=== PATIENT | female | born 1960 | race Hispanic/Latino ===

== ENCOUNTER 2016-11-26 04:18 | Emergency (ER) | payer SELFPAY ==
[2016-11-26 04:30] VITALS: BP 116/66
[2016-11-26 05:17] LABS: Bacteria,Urine 1+ /HPF (Negative); Bilirubin,Urine NEG (Negative); Blood,Urine SM (Negative); Ketones,Urine NEG (Negative); Leukocyte Esterase,Urine NEG (Negative); Mucus,Urine FEW /HPF; Nitrite,Urine POS (Negative); Protein,Urine <15 mg/dL mg/dL (Negative); Urobilinogen,Urine < 2.0 mg/dL (<2.0)
[2016-11-26 05:17] LABS: Basophils % (Auto) 0.5 % (0.0-1.8); Eosinophils % (Auto) 1.4 % (0.0-4.3); Hematocrit 46.1 % (30.3-42.9); Hemoglobin 15.9 gm/dl (10.1-14.3); Mean Corpuscular HGB Conc 34 % (30-34); Mean Corpuscular Hemoglobin 34 pg (28-32); Mean Corpuscular Volume 99 fl (79-97); Platelet Count 259 K/mm3 (140-440); Red Blood Count 4.64 M/mm3 (3.65-5.03); Red Cell Distribution Width 13.4 % (13.2-15.2)
[2016-11-26 05:23] LABS: Albumin 3.9 g/dL (3.9-5); BUN/Creatinine Ratio 18.18; Bilirubin,Total 0.3 mg/dL (0.1-1.2); Calcium 9.4 mg/dL (8.4-10.2); Chloride 100.1 mmol/L (98-107); Potassium 4.5 mmol/L (3.6-5.0)
--- NOTE | 2016-11-26 19:39 | ED Elopement Review ---
ED Pt Elopement review - Results review Lab results: Laboratory Tests 11/26/16 11/26/16 11/26/16 04:33 04:33 04:42 WBC 9.0 RBC 4.64 Hgb 15.9 H Hct 46.1 H MCV 99 H MCH 34 H MCHC 34 RDW 13.4 Plt Count 259 Lymph % (Auto) 28.8 Stevens % (Auto) 5.0 Eos % (Auto) 1.4 Baso % (Auto) 0.5 Lymph # 2.6 Stevens # 0.5 Eos # 0.1 Baso # 0.0 Seg Neutrophils % 64.3 Seg Neutrophils # 5.8 Sodium 140 Potassium 4.5 Chloride 100.1 Carbon Dioxide 26 Anion Gap 18 BUN 20 H Creatinine 1.1 Estimated GFR 52 BUN/Creatinine Ratio 18.18 Glucose 100 Calcium 9.4 Total Bilirubin 0.30 AST 16 ALT 10 Alkaline Phosphatase 65 Total Protein 8.0 Albumin 3.9 Albumin/Globulin Ratio 1.0 Urine Color Yellow Urine Turbidity Clear Urine pH 6.0 Ur Specific [place] 1.016 Urine Protein <15 mg/dl Urine Glucose (UA) Neg Urine Ketones Neg Urine Blood Sm Urine Nitrite Pos Urine Bilirubin Neg Urine Urobilinogen < 2.0 Ur Leukocyte Esterase Neg Urine WBC (Auto) 13.0 H Urine RBC (Auto) 1.0 U Epithel Cells (Auto) < 1.0 Urine Bacteria (Auto) 1+ Urine Mucus Few - Call Back decision Pt Call Back Decision: No action required
== END 2016-11-26 04:43 | disposition left against medical advice (07) ==
LOC: ED 04:18
DX: R10.30 Lower abdominal pain, unspecified (principal); Z53.21 Procedure and treatment not carried out due to patient leaving prior to being seen by health care provider
CPT/HCPCS: 36415; 80053; 81001; 85025

== ENCOUNTER 2017-09-23 05:41 | Emergency (ER) | payer OTHER ==
[2017-09-23 07:19] LABS: Basophils % (Auto) 0.4 % (0.0-1.8); Eosinophils # (Auto) 0.1 K/mm3 (0.0-0.4); Eosinophils % (Auto) 1.6 % (0.0-4.3); Hematocrit 52.2 % (30.3-42.9); Hemoglobin 18.1 gm/dl (10.1-14.3); Lymphocytes # (Auto) 2.1 K/mm3 (1.2-5.4); Lymphocytes % (Auto) 26.8 % (13.4-35.0); Mean Corpuscular HGB Conc 35 % (30-34); Mean Corpuscular Hemoglobin 35 pg (28-32); Mean Corpuscular Volume 102 fl (79-97); Monocytes # (Auto) 0.5 K/mm3 (0.0-0.8); Monocytes % (Auto) 6.7 % (0.0-7.3); Platelet Count 218 K/mm3 (140-440); Red Blood Count 5.14 M/mm3 (3.65-5.03); Red Cell Distribution Width 14.1 % (13.2-15.2)
[2017-09-23 07:29] LABS: BUN/Creatinine Ratio 19; Blood Urea Nitrogen 15 mg/dL (7-17); Calcium 9.5 mg/dL (8.4-10.2); Hemolysis Index 21
[2017-09-23 08:25] LABS: Bacteria,Urine 1+ /HPF (Negative); Bilirubin,Urine NEG (Negative); Blood,Urine MOD (Negative); Color,Urine Yellow (Yellow); Mucus,Urine FEW /HPF; Protein,Urine <15 mg/dL mg/dL (Negative)
[2017-09-23 08:37] LABS: Amphetamine Screen,Urine PRESUMPTIVE NEGATIVE; Methadone Screen,Urine PRESUMPTIVE NEGATIVE; Opiate Screen,Urine PRESUMPTIVE NEGATIVE
[2017-09-23 08:52] LABS: Benzodiazepines Screen,Urine PRESUMPTIVE POSITIVE; Cannabinoid Screen,Urine PRESUMPTIVE POSITIVE; Cocaine Screen,Urine PRESUMPTIVE POSITIVE
--- NOTE | 2017-09-23 12:32 | Emergency Department Report ---
HPI - General Chief Complaint: Psych Time Seen by Provider: 09/23/17 12:03 - HPI HPI: 57-year-old female presents to the emergency department by EMS after she cut both her wrists with last night/early this morning. Patient says that she has a feeling of hopelessness and wants to "end it all." She says that she has this history of a inguinal hernia for the past few years as well as some type of growth towards the left breast that she has concern for breast cancer but says that she has been unable to get any follow-up or evaluation. She says that she has no insurance, does not have much money and has no job and is feeling hopeless. She has a past medical history of previous CVA, hypertension , hyperlipidemia and has a history of PTSD and anxiety. She admits to taking a Xanax last night as well as smoking crack and drinking some alcohol. ED Past Medical Hx - Past Medical History Previous Medical History?: Yes Hx Hypertension: Yes Hx CVA: Yes Hx Congestive Heart Failure: No Hx Diabetes: No Hx Psychiatric Treatment: Yes (anxiety) Hx Asthma: No Hx COPD: No Additional medical history: high chol. DJD lower back - Surgical History Past Surgical History?: Yes Additional Surgical History: fusion Lumbar spine. tonsills - Social History Smoking Status: Current Every Day Smoker Substance Use Type: Alcohol, Cocaine, Marijuana - Medications Home Medications: Home Medications Medication Instructions Recorded Confirmed Last Taken Type Hydrocodone Bit/Acetaminophen 1 each PO Q8H PRN #10 tablet 06/10/13 05/03/15 Unknown Rx [Lortab 7.5-500 mg] Lisinopril [Zestril TAB] 20 mg PO QDAY 06/10/13 05/03/15 Unknown History traMADol [Ultram 50 MG tab] 50 mg PO Q4HR PRN #20 tablet 06/10/13 05/03/15 Unknown Rx Aspirin [Aspirin BABY CHEW TAB] 162 mg PO QDAY 05/03/15 05/03/15 Unknown History Nitrofurantoin [place]/M-Cryst 100 mg PO BID #14 capsule 09/23/17 Unknown Rx [Macrobid CAP] ED Review of Systems ROS: Stated complaint: LAC TO WRISTS Other details as noted in HPI Comment: All other systems reviewed and negative Constitutional: denies: chills, fever Eyes: denies: eye pain, eye discharge, vision change ENT: denies: ear pain, throat pain Respiratory: denies: cough, shortness of breath, wheezing Cardiovascular: denies: chest pain, palpitations Gastrointestinal: denies: abdominal pain, nausea, diarrhea Genitourinary: denies: urgency, dysuria, discharge Musculoskeletal: denies: back pain, joint swelling, arthralgia Skin: other (abrasions/laceration of the wrists). denies: rash Neurological: denies: headache, numbness Psychiatric: anxiety, depression, suicidal thoughts Physical Exam - Physical Exam Vital Signs: Vital Signs 09/23/17 06:47 Temperature 98.6 F Pulse Rate 64 Respiratory 18 Rate Blood Pressure 133/76 O2 Sat by Pulse 97 Oximetry Physical Exam: GENERAL: The patient is well-developed well-nourished. HENT: Normocephalic. Atraumatic. Patient has moist mucous membranes. EYES: Extraocular motions are intact. Pupils equal reactive to light bilaterally. NECK: Supple. Trachea is midline. CHEST/LUNGS: Clear to auscultation. There is no respiratory distress noted. BREAST: There is a soft tissue mass growing off of the left breast around the nipple. HEART/CARDIOVASCULAR: Regular. There is no tachycardia. There is no murmur. ABDOMEN: Abdomen is soft, nontender. Patient has normal bowel sounds. There is no abdominal distention. SKIN: Patient has multiple abrasions to the volar wrist and distal forearm. No current bleeding and they do not appear infected. NEURO: The patient is awake, alert, and oriented. The patient is cooperative. The patient has no focal neurologic deficits. The patient has normal speech. MUSCULOSKELETAL: There is no tenderness or deformity. There is no limitation range of motion. There is no evidence of acute injury. PSYCH: Patient is very tearful but otherwise appropriate. ED Course Vital Signs 09/23/17 06:47 Temperature 98.6 F Pulse Rate 64 Respiratory 18 Rate Blood Pressure 133/76 O2 Sat by Pulse 97 Oximetry ED Medical Decision Making - Lab Data Result diagrams: 09/23/17 06:59 09/23/17 06:59 - Radiology Data Radiology results: report reviewed, image reviewed interpreted by me: Chest x-ray does not show any acute process. There are no pleural effusions, obvious pneumonia and there is no pneumothorax. Abdominal x-ray shows nonspecific nonobstructive bowel gas. CT of the head does not show any acute intracranial process including no ischemia, shift, mass, bleeding or skull fracture. - Medical Decision Making Patient presents with suicidal ideations and possible attempt with multiple abrasions around the wrists that are self-inflicted. At first the patient complains of some chronic medical conditions that she has had trouble getting evaluated. With the psych chucking and sawing machine operator, Malgorzata, in the room with me, the patient showed her left breast which has a soft tissue mass growing off of the nipple. The patient says that this is a chronic issue for her and she has not yet had a mammogram or had it evaluated. She also complains of a right inguinal hernia. I did not feel any current palpable hernia and specifically there is nothing that appears incarcerated or strangulated. She has multiple abrasions to the bilateral wrists and forearms consistent with self-inflicted wounds. Nothing that appears to require any sutures or laceration repair. She was given a tetanus booster. However along with the self-inflicted wounds and her suicidal ideations, she has been made a 1013. Labs are mostly unremarkable except for a urinary tract infection. Also urine drug screen positive for benzodiazepine, cocaine and marijuana, all which the patient admits to using. Chest and abdominal x-rays were done that did not show any signs of any intrathoracic mass, or any acute abdominal or pelvic process. CT of head does not show any bleed, shift, mass or any acute process and was done secondary to the complaint of a headache. Vital signs stable throughout her ED course. The patient appears medically cleared for psychiatric placement. She will be given some referrals for outpatient primary care clinics to use when she is done with her psychiatric treatment. - Differential Diagnosis depression, substance abuse, bipolar disorder, schizophrenia Critical Care Time: No Critical care attestation.: If time is entered above; I have spent that time in minutes in the direct care of this critically ill patient, excluding procedure time. ED Disposition Clinical Impression: Suicidal ideations, Substance abuse Depression Qualifiers: Depression Type: unspecified Qualified Code(s): F32.9 - Major depressive disorder, single episode, unspecified Self-inflicted laceration of wrist Qualifiers: Encounter type: initial encounter Laterality: unspecified laterality Qualified Code(s): S61.519A - Laceration without foreign body of unspecified wrist, initial encounter UTI (urinary tract infection) Qualifiers: Urinary tract infection type: acute cystitis Hematuria presence: without hematuria Qualified Code(s): N30.00 - Acute cystitis without hematuria Disposition: TO HOME OR SELFCARE Is pt being admited?: No Condition: Stable Prescriptions: Nitrofurantoin [place]/M-Cryst [Macrobid CAP] 100 mg PO BID #14 capsule Referrals: [facility] [Outside] - [facility] [Outside] - [facility] [Outside] - [facility] Time of Disposition: 16:22
[2017-09-23] MEDS ORDERED: BOOSTRIX IM ONE ×2 (12:33→16:39)
--- NOTE | 2017-09-23 13:30 | XRay Report ---
ABDOMINAL SERIES: History: Breast mass, inguinal hernia. Erect chest film shows no acute or significant changes involving the heart or lung pierson. There is no evidence of free air beneath the diaphragms. The gas pattern within the abdomen is unremarkable. There is no evidence of bowel dilatation, significant air-fluid levels, or masses. Organ shadows are unremarkable. Surgical changes at the L5-S1 level are noted. IMPRESSION: Abdominal series within normal limits.
--- NOTE | 2017-09-23 15:41 | Cat Scan Report ---
CT HEAD WITHOUT CONTRAST: HISTORY: Headache. TECHNIQUE: Sequential 2.5mm CT images. COMPARISON: none. FINDINGS: Cerebral Parenchyma: Within normal limits. Cerebellum: Within normal limits. Brainstem: Within normal limits. Ventricles: Normal. Sella: Normal. Extra-axial spaces: Normal. Basal Cisterns: Normal. Intracranial Hemorrhage: None. Midline Shift: None. Calvarium: Normal. Sinuses: Normal. Mastoid Air Cells: Normal. Visualized Orbits: Normal. IMPRESSION: Cranial CT scan within normal limits.
[2017-09-23] MEDS: MACROBID PO SCH ×2 (16:23→22:12)
[2017-09-23] MEDS ORDERED: TYLENOL PO ONE (21:06)
[2017-09-24] MEDS: MACROBID PO SCH ×2 (11:45→22:26)
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
[2017-09-24 17:53] LABS: Alanine Aminotransferase 16 units/L (7-56); Albumin 4.1 g/dL (3.9-5)
[2017-09-24 18:01] LABS: Bilirubin,Direct < 0.2 mg/dL (0-0.2)
[2017-09-25] MEDS: PROzac PO SCH (10:39)
[2017-09-25] MEDS: MACROBID PO SCH ×2 (10:39→21:36)
--- NOTE | 2017-09-25 16:36 | Progress Note ---
Subjective - Reason for Consult Consult date: 09/25/17 Reason for consult: follow up - Chief Complaint Chief complaint: "This isn't helping." 57-year-old female presents to the emergency department by EMS after she cut both her wrists before arrival to the ER. Patient says that she has a feeling of hopelessness and wants to "end it all." She says that she has no insurance, does not have much money and has no job and is feeling hopeless. She is living in an extended stay motel. She has a past medical history of previous CVAs, hypertension, hyperlipidemia and has a history of PTSD, bipolar, and anxiety. She admits to taking Klonopin from her friend the night before coming to the ER as well as smoking crack and drinking some alcohol. She denies daily alcohol use. She was previously on ativan, prozac, thorazine, and trazodone. She has not been on meds in 2 years. She was hospitalized 3 years ago for similar symptoms. She denies psychotic symptoms. She reports depression, anxiety , and feeling "manic." She is unable to describe manic symptoms. She was tearful. She reports poor sleep initiation and maintenance. Her presentation is the same as yesterday. Mental Status Exam - Vital signs Last Vital Signs Temp 97.6 F 09/25/17 10:33 Pulse 72 09/25/17 10:33 Resp 18 09/25/17 10:33 BP 124/64 09/25/17 10:33 Pulse Ox 96 09/24/17 20:47 - Exam Narrative exam: Orientation: time, place, person Affect: depressed, anxious, other (tearful, labile) Mood: congruent with affect, sad Thought content: other (suicide attempt) Thought Process: Intact Perceptions: none Speech: normal rate and pattern Concentration: distractible Motor activity: tense Level of consciousness: alert Memory: Intact Sleep Symptoms: Difficulty Falling Asleep Appetite: decreased Interaction: cooperative Assessment and Plan Impression: suicide attempt via cutting wrists with a razor major depressive disorder, recurrent, severe PTSD alcohol use disorder. No current withdrawal symptoms cocaine use disorder cannabis use disorder r/o substance induced mood disorder r/o bipolar disorder Recommendation: Continue prozac 20mg daily for depression and PTSD. Add zyprexa 5mg hs as an adjunctive agent for mood. She was informed of the risk of metabolic effects/ eps. continue 1013 and transfer to inpatient psychiatric facility.
--- NOTE | 2017-09-26 09:14 | Progress Note ---
Subjective - Reason for Consult Consult date: 09/26/17 Reason for consult: Psychiatry Follow-up - Chief Complaint Chief complaint: "I have to stop using drugs" 57-year-old female presents to the emergency department by EMS after she cut both her wrists before arrival to the ER. Today the patient is cooperative during the assessment. She stated been denied social security benefits twice and she is tired of going through that process. She stated that her recreational drug use has increased the past year because she feels hopeless and helpless. She stated that she gets "high" with her which is a major problems. She stated being in rehab several times, but relapse. She stated that she cut her wrist to transfer the "mental anguish to pain." She stated that this is her time cutting on herself. She would not confirm or deny SI/HI's when asked. She denies AVH's. She stated that she felt "weird" after taking Zyprexa. She asked for that medication to be D/C'd. She stated that she slept more hours last night then the previous night. Mental Status Exam - Vital signs Last Vital Signs Temp 97.6 F 09/25/17 10:33 Pulse 72 09/25/17 10:33 Resp 18 09/25/17 10:33 BP 124/64 09/25/17 10:33 Pulse Ox 96 09/24/17 20:47 - Exam Narrative exam: MSE: Appearance: cooperative Behavior: regular eye contact Speech: regular rate and tone Mood: "anxious" Affect: congruent to mood Thought Process: circumstantial Thought Content: denies SI/HI's and AVH's Motor Activity: ambulatory Cognition: A/O x3 Insight: fair Judgment: fair Assessment and Plan Impression: MDD, recurrent/severe. Substance Use DO (cocaine). Cannabis Use DO. Suicide attempt via cutting wrists with a razor. PTSD. Alcohol Use DO - No current withdrawal symptoms. DDx: R/O Bipolar DO, R/O Substance Induced Mood DO, R/O Personality DO Recommendation/Plan: Continue 1013 with placement to inpatient psy services. Start Vistaril 25 mg PO Q6hrs PRN for acute anxiety. Continue Prozac 20mg daily for depression/PTSD. D/C Zyprexa, patient complaining fo feel "weird" when she takes the medication. She stated that she does not like that feeling. Discussed possible suicidality/medication induced christopher with patient reference Sergio.
[2017-09-26] MEDS: MACROBID PO SCH ×2 (12:24→21:52)
[2017-09-26] MEDS: PROzac PO SCH (12:24)
[2017-09-26] MEDS: VISTARIL PO PRN ×2 (16:25→20:17)
[2017-09-27] MEDS: VISTARIL PO PRN (07:56)
[2017-09-27] MEDS ORDERED: TYLENOL ONE (10:53)
--- NOTE | 2017-09-27 11:32 | Progress Note ---
Subjective - Reason for Consult Consult date: 09/27/17 Reason for consult: Psychiatry Follow-up - Chief Complaint Chief complaint: "I didn't sleep last night" 57-year-old female presents to the emergency department by EMS after she cut both her wrists before arrival to the ER. Today the patient is cooperative during the assessment. She stated that she didn't sleep last night. She stated that she took Trazodone in the past. She is adamant about wanting to rest at night. She denies SI/HI's and AVH's. She denies any side effects of her medication. Mental Status Exam - Vital signs Last Vital Signs Temp 98.8 F 09/27/17 08:44 Pulse 83 09/27/17 08:44 Resp 14 09/27/17 08:44 BP 121/64 09/27/17 08:44 Pulse Ox 96 09/27/17 08:44 - Exam Narrative exam: MSE: Appearance: cooperative Behavior: regular eye contact Speech: regular rate and tone Mood: "anxious" Affect: congruent to mood Thought Process: circumstantial Thought Content: denies SI/HI's and AVH's Motor Activity: ambulatory Cognition: A/O x3 Insight: fair Judgment: fair Assessment and Plan Impression: MDD, recurrent/severe. Substance Use DO (cocaine). Cannabis Use DO. Suicide attempt via cutting wrists with a razor. PTSD. Alcohol Use DO - No current withdrawal symptoms. DDx: R/O Bipolar DO, R/O Substance Induced Mood DO, R/O Personality DO Recommendation/Plan: Continue 1013 with placement to inpatient psy services. Continue Vistaril 25 mg PO Q6hrs PRN for acute anxiety and Prozac 20mg daily for depression/PTSD. Start Trazodone 50 mg PO HS for sleep consolidation. Discussed possible suicidality/medication induced christopher with patient reference Prozac and Trazodone.
[2017-09-27] MEDS: MACROBID PO SCH ×2 (11:47→22:11)
[2017-09-27] MEDS: PROzac PO SCH (11:47)
[2017-09-27] MEDS ORDERED: TYLENOL PO ONE (11:47)
[2017-09-27] MEDS ORDERED: DESYREL PO SCH (22:00)
[2017-09-28 01:47] VITALS: BP 140/78
[2017-09-28] MEDS: PROzac PO SCH (09:57)
[2017-09-28] MEDS: VISTARIL PO PRN (09:57)
[2017-09-28] MEDS: MACROBID PO SCH (09:57)
== END 2017-09-28 12:09 | disposition home or self-care (01) ==
LOC: EEVIPCON 05:41 → ED 05:41
DX: S61.511A Laceration without foreign body of right wrist, initial encounter (principal); S61.512A Laceration without foreign body of left wrist, initial encounter; F32.9 Major depressive disorder, single episode, unspecified; N30.00 Acute cystitis without hematuria; R51 Headache; I10 Essential (primary) hypertension; F41.9 Anxiety disorder, unspecified; F17.200 Nicotine dependence, unspecified, uncomplicated; F14.10 Cocaine abuse, uncomplicated; F12.10 Cannabis abuse, uncomplicated; F43.10 Post-traumatic stress disorder, unspecified; E78.00 Pure hypercholesterolemia, unspecified; Z91.018 Allergy to other foods; Z91.013 Allergy to seafood; Z88.2 Allergy status to sulfonamides; X78.8XXA Intentional self-harm by other sharp object, initial encounter; Y93.89 Activity, other specified; Y99.8 Other external cause status; Y92.89 Other specified places as the place of occurrence of the external cause
CPT/HCPCS: 36415; 70450; 74022; 80048; 80074; 80307; 81001; 85025; 90471; 90715; 99285; G0480; 80320; Q0177

== ENCOUNTER 2019-02-23 07:53 | Emergency (ER) | payer SELFPAY ==
[2019-02-23 08:04] VITALS: BP 178/98
[2019-02-23] MEDS ORDERED: NORCO 5/325 PO ONE (09:02)
[2019-02-23] MEDS ORDERED: CLEOCIN PO ONE (09:03)
--- NOTE | 2019-02-23 09:08 | Emergency Department Report ---
ED General Adult HPI - General Chief complaint: Urogenital-Female Stated complaint: L BREAST PAIN Time Seen by Provider: 02/23/19 08:51 Source: patient Mode of arrival: Ambulatory Limitations: No Limitations - History of Present Illness Initial comments: Patient is a 58-year-old female who is presenting with several months of pain to the left breast. Patient notes that over the last several months she's had a lesion develop on the left breast that 2 months ago erupted with purulent drainage. This area has continued to have bouts of inflammation which will come and go. Patient states pain is a throbbing pain is 8 out of 10 in severity. Patient was seen at another facility and the patient was told that she could not see the breast surgeon secondary to financial constraints. Patient denies any fevers chills. Patient states is been no nausea vomiting diarrhea. Severity scale (0 -10): 0 - Related Data Home Medications Medication Instructions Recorded Confirmed Last Taken Lisinopril [Zestril TAB] 20 mg PO QDAY 06/10/13 09/26/17 Unknown Aspirin [Aspirin BABY CHEW TAB] 162 mg PO QDAY 05/03/15 09/26/17 Unknown Previous Rx's Medication Instructions Recorded Last Taken Type Hydrocodone Bit/Acetaminophen 1 each PO Q8H PRN #10 tablet 06/10/13 Unknown Rx [Lortab 7.5-500 mg] traMADol [Ultram 50 MG tab] 50 mg PO Q4HR PRN #20 tablet 06/10/13 Unknown Rx Nitrofurantoin [place]/M-Cryst 100 mg PO BID #14 capsule 09/23/17 Unknown Rx [Macrobid CAP] Clindamycin [Clindamycin CAP] 300 mg PO Q8H #21 cap 02/23/19 Unknown Rx HYDROcodone/APAP 5-325 [[place] 1 each PO Q6HR PRN #14 tablet 02/23/19 Unknown Rx 5/325] Ibuprofen [Motrin 800 MG tab] 800 mg PO Q8HR PRN #10 tablet 02/23/19 Unknown Rx Allergies Allergy/AdvReac Type Severity Reaction Status Date / Time kiwi Allergy Unknown Verified 05/04/15 10:13 shrimp Allergy Unknown Verified 05/04/15 10:13 Sulfa (Sulfonamide Allergy Rash Verified 05/03/15 08:28 Antibiotics) ED Review of Systems ROS: Stated complaint: L BREAST PAIN Other details as noted in HPI Comment: All other systems reviewed and negative ED Past Medical Hx - Past Medical History Previous Medical History?: Yes Hx Hypertension: Yes Hx CVA: Yes Hx Congestive Heart Failure: No Hx Diabetes: No Hx Psychiatric Treatment: Yes (anxiety) Hx Asthma: No Hx COPD: No Additional medical history: high chol. DJD lower back - Surgical History Past Surgical History?: Yes Additional Surgical History: fusion Lumbar spine. tonsills - Social History Smoking Status: Current Every Day Smoker Substance Use Type: None - Medications Home Medications: Home Medications Medication Instructions Recorded Confirmed Last Taken Type Hydrocodone Bit/Acetaminophen 1 each PO Q8H PRN #10 tablet 06/10/13 09/26/17 Unknown Rx [Lortab 7.5-500 mg] Lisinopril [Zestril TAB] 20 mg PO QDAY 06/10/13 09/26/17 Unknown History traMADol [Ultram 50 MG tab] 50 mg PO Q4HR PRN #20 tablet 06/10/13 09/26/17 Unknown Rx Aspirin [Aspirin BABY CHEW TAB] 162 mg PO QDAY 05/03/15 09/26/17 Unknown History Nitrofurantoin [place]/M-Cryst 100 mg PO BID #14 capsule 09/23/17 Unknown Rx [Macrobid CAP] Clindamycin [Clindamycin CAP] 300 mg PO Q8H #21 cap 02/23/19 Unknown Rx HYDROcodone/APAP 5-325 [Roug[place] 1 each PO Q6HR PRN #14 tablet 02/23/19 Unknown Rx 5/325] Ibuprofen [Motrin 800 MG tab] 800 mg PO Q8HR PRN #10 tablet 02/23/19 Unknown Rx ED Physical Exam - General Limitations: No Limitations General appearance: alert, in no apparent distress - Head Head exam: Present: atraumatic, normocephalic - Eye Eye exam: Present: normal appearance - ENT ENT exam: Present: mucous membranes moist - Neck Neck exam: Present: normal inspection - Respiratory Respiratory exam: Present: normal lung sounds bilaterally. Absent: respiratory distress, wheezes, rales - Cardiovascular Cardiovascular Exam: Present: regular rate, normal rhythm. Absent: systolic murmur, diastolic murmur, rubs, gallop - GI/Abdominal GI/Abdominal exam: Present: soft, normal bowel sounds. Absent: distended, tenderness, guarding, rebound - Extremities Exam Extremities exam: Present: normal inspection - Back Exam Back exam: Present: normal inspection - Neurological Exam Neurological exam: Present: alert, oriented X3 - Psychiatric Psychiatric exam: Present: normal affect, normal mood - Skin Skin exam: Present: warm, dry, intact, normal color, other (the patient's left breast has a erosive lesion with some necrotic areas centrally. There is complete destruction of the nipple and areola. Breast is firm. There is mild surrounding erythema to this large tennis ball size lesion.). Absent: rash ED Course Vital Signs 02/23/19 08:03 Temperature 97.7 F Pulse Rate 82 Respiratory 18 Rate Blood Pressure 178/98 O2 Sat by Pulse 97 Oximetry ED Medical Decision Making - Medical Decision Making I discussed this case with Dr. Pamela Darby breast surgeon. Patient could possibly be covered under her [facility]. Patient to be contacted by her office today to schedule biopsy and further testing. Patient started on pain medication as well as antibiotics for possible secondary infection. Critical care attestation.: If time is entered above; I have spent that time in minutes in the direct care of this critically ill patient, excluding procedure time. ED Disposition Clinical Impression: Breast mass, left Disposition: DC-01 TO HOME OR SELFCARE Is pt being admited?: No Does the pt Need Aspirin: No Condition: Stable Instructions: Breast Mass (ED) Referrals: ERMA HOYT MD [Staff Physician] - 3-5 Days Time of Disposition: 09:09
[2019-02-23] MEDS ORDERED: ZESTRIL PO ONE (09:27)
== END 2019-02-23 09:45 | disposition home or self-care (01) ==
LOC: ED 07:53
DX: N63.20 Unspecified lump in the left breast, unspecified quadrant (principal); I10 Essential (primary) hypertension; F41.9 Anxiety disorder, unspecified; E78.00 Pure hypercholesterolemia, unspecified; J03.90 Acute tonsillitis, unspecified; F17.200 Nicotine dependence, unspecified, uncomplicated; Z86.73 Personal history of transient ischemic attack (TIA), and cerebral infarction without residual deficits; Z98.890 Other specified postprocedural states; Z79.899 Other long term (current) drug therapy; Z91.018 Allergy to other foods; Z88.2 Allergy status to sulfonamides
CPT/HCPCS: 99282

== ENCOUNTER 2019-03-20 08:19 | Emergency (ER) | payer SELFPAY ==
[2019-03-20] MEDS ORDERED: MORPHINE IV ONE ×2 (09:23→12:47)
[2019-03-20] MEDS ORDERED: ZOFRAN IV ONE ×2 (09:23→12:48)
--- NOTE | 2019-03-20 09:49 | Emergency Department Report ---
HPI - General Chief Complaint: Headache Time Seen by Provider: 03/20/19 09:12 - HPI HPI: 58-year-old female presents to the emergency department with a complaint of left-sided facial swelling and pain that started yesterday and worsened since waking up this morning. Patient does have a history of some broken teeth and some dental pain. However the patient also has a recent diagnosis of advanced left-sided breast cancer. She denies any fever, nausea, vomiting, shortness of breath. The patient recently started seeing Dr. Viveros for oncology. She is due to see Dr. Santiago, breast surgeon, today. She has not yet started any type of chemotherapy or radiation treatment. She has not taken anything for her symptoms prior to arrival today. ED Past Medical Hx - Past Medical History Previous Medical History?: Yes Hx Hypertension: Yes Hx CVA: Yes Hx Congestive Heart Failure: No Hx Diabetes: No Hx Psychiatric Treatment: Yes (anxiety) Hx Asthma: No Hx COPD: No Additional medical history: high chol. DJD lower back - Surgical History Past Surgical History?: Yes Additional Surgical History: fusion Lumbar spine. tonsills - Social History Smoking Status: Current Every Day Smoker Substance Use Type: None - Medications Home Medications: Home Medications Medication Instructions Recorded Confirmed Last Taken Type Clindamycin [Clindamycin CAP] 300 mg PO Q8HR #42 capsule 03/20/19 Unknown Rx HYDROcodone/APAP 5-325 [[place] 1 each PO Q6HR PRN #12 tablet 03/20/19 Unknown Rx 5/325] ED Review of Systems ROS: Stated complaint: (L) SIDE OF FACE SWOLLEN Other details as noted in HPI Comment: All other systems reviewed and negative Constitutional: denies: chills, fever Eyes: denies: eye pain, vision change ENT: dental pain. denies: ear pain, throat pain Respiratory: denies: cough, shortness of breath Cardiovascular: edema (facial swelling). denies: chest pain, palpitations Gastrointestinal: denies: abdominal pain, vomiting Genitourinary: denies: dysuria, discharge Musculoskeletal: denies: back pain, arthralgia Skin: denies: rash, lesions Neurological: denies: numbness, paresthesias Physical Exam - Physical Exam Vital Signs: Vital Signs 03/20/19 08:24 Temperature 98.6 F Pulse Rate 105 H Respiratory 20 Rate Blood Pressure 133/94 O2 Sat by Pulse 96 Oximetry Physical Exam: GENERAL: The patient is well-developed well-nourished. HENT: Normocephalic. Atraumatic. Patient has moist mucous membranes. Patient has multiple dental caries, missing teeth and fractured teeth but everything appears chronic. No palpable or visible dental abscess but there is some tenderness to palpation along the left upper gumline. No drooling or trismus. Left-sided facial tenderness to palpation. EYES: Extraocular motions are intact. Pupils equal reactive to light bilaterally. NECK: Supple. Trachea is midline. CHEST/LUNGS: Clear to auscultation. There is no respiratory distress noted. HEART/CARDIOVASCULAR: Regular. There is no tachycardia. There is no murmur. ABDOMEN: Abdomen is soft, nontender. Patient has normal bowel sounds. There is no abdominal distention. SKIN: There is left-sided facial swelling with some mild erythema. No fluctuance. NEURO: The patient is awake, alert, and oriented. The patient is cooperative. The patient has no focal neurologic deficits. Normal speech. MUSCULOSKELETAL: There is no tenderness or deformity. There is no evidence of acute injury. ED Course Vital Signs 03/20/19 08:24 Temperature 98.6 F Pulse Rate 105 H Respiratory 20 Rate Blood Pressure 133/94 O2 Sat by Pulse 96 Oximetry ED Medical Decision Making - Lab Data Result diagrams: 03/20/19 09:31 03/20/19 09:31 - Radiology Data Radiology results: report reviewed CT facial boncontrastes w con INDICATION: Left facial swelling and pain beginning this morning. Recent fracture/loss of tooth per patient. TECHNIQUE: Axial, coronal and sagittal CT imaging was performed through the face after injection of 100 mL Omnipaque [address] scans at this location are performed using CT dose reduction for ALARA by means of automated exposure control. COMPARISON: None available. FINDINGS: Bones and joints: No acute fracture or dislocation. Degenerative changes are noted along the cervical spine. Soft tissues: There is generalized mild to moderate edema along the left side of the face extending from the maxillary region to the level of the mandible. No organized drainable fluid collection/abscess is seen. No mass or lymphadenopathy is seen. The aerodigestive tract appears patent and normal in caliber. The parapharyngeal spaces are maintained. Sinuses: The right maxillary sinus is small, but clear. The remaining visualized sinuses appear unremarkable. The mastoid air cells are clear. Orbits: No significant abnormality. Additional findings: None. IMPRESSION: Mild to moderate left facial edema without visualization of an organized drainable fluid collection/abscess or acute osseous abnormality. CT chest w con INDICATION / CLINICAL INFORMATION: facial swelling with hx of metastaticbreast cancer. TECHNIQUE: Axial CT imaging of chest was obtained with IV contrast. Coronal and sagittal reformatted imaging obtained and reviewed. All CT scans at this location are performed using CT dose reduction for ALARA by means of automated exposure control. COMPARISON: None available. FINDINGS: CT chest with contrast does not demonstrate any mediastinal or hilar mass or adenopathy. Thoracic aorta demonstrates a small amount of calcific plaque but no evidence of aneurysmal dilatation. Heart size is normal. No pericardial effusion. The lungs are well-expanded. I do not see any evidence of pulmonary nodule or focal parenchymal disease. There is no pleural effusion. There is some degree of motion artifact on the exam. It is possible that a very tiny pulmonary nodule may not be visualized due to the presence of this motion artifact. Imaging obtained of the upper abdomen is grossly unremarkable. Visualized portion of the liver and both adrenal glands are unremarkable. No acute osseous abnormality noted. There is an obvious malignant mass in the left subareolar breast which has been recently biopsied. The mass measures approximately 3.9 cm in diameter. There is significant and prominent. The areolar skin involvement and nipple retraction. Additionally there are multiple abnormal left axillary lymph nodes present as well as which have been biopsied recently. IMPRESSION: 1. Large left breast mass with metastatic left axillary adenopathy. This is a known breast malignancy and has been biopsied recently. 2. No acute finding within the thorax. No acute pulmonary disease. Please note that there is patient motion artifact present which does limit the quality of this exam slightly. - Medical Decision Making This patient presents with a few days of some left-sided facial swelling and tenderness. She has a history of a recent diagnosis of some advanced and/or metastatic left-sided breast cancer. My concern upon her presentation was either a facial cellulitis with abscess, or superior vena cava syndrome. Her labs were mostly unremarkable. No significant leukocytosis. Vital signs were stable including being afebrile. Patient was given a few doses of pain medication and placed on some clindamycin. She did have some improvement of her symptoms. CT of the chest shows the large left breast mass with metastatic left adenopathy. Otherwise there is no acute finding within the thorax and she does not appear to have superior vena cava syndrome. CT of the face shows some soft tissue swelling but no drainable or visible fluid collection or abscess. The patient already is being followed for the breast cancer with Dr. Viveros, oncology, and Dr. Santiago, breast surgery and has appointment coming up. Her facial pain is improved with pain medication. She appears safe for discharge home at this time. She understands that she must return to the emergency department immediately with any worsening of her symptoms or with any acute distress. She'll be discharged home with antibiotics and pain medication. - Differential Diagnosis superior vena cava syndrome, facial celluliti, facial abscess, dental infec Critical Care Time: No Critical care attestation.: If time is entered above; I have spent that time in minutes in the direct care of this critically ill patient, excluding procedure time. ED Disposition Clinical Impression: Facial cellulitis, Dentalgia, Facial swelling Disposition: TO HOME OR SELFCARE Is pt being admited?: No Condition: Stable Instructions: Dental Caries (ED), Cellulitis (ED), Toothache (ED) Additional Instructions: Please follow-up with your oncologist and breast surgeon. Take the antibiotics as prescribed. Return to the emergency Department with any worsening of your symptoms are any acute distress. You have been prescribed a medication that is sedating and therefore should not be taken prior to driving, working, and responsible for children and in no way should be mixed with alcohol of any quantity. Prescriptions: Clindamycin [Clindamycin CAP] 300 mg PO Q8HR #42 capsule HYDROcodone/APAP 5-325 [[place] 5/325] 1 each PO Q6HR PRN #12 tablet PRN Reason: Pain Referrals: REGINE VIVEROS MD [Staff Physician] - 3-5 Days ERMA SANTIAGO MD [Staff Physician] - 3-5 Days Time of Disposition: 16:36
[2019-03-20 09:53] LABS: Basophils % (Auto) 0.3 % (0.0-1.8); Eosinophils # (Auto) 0.1 K/mm3 (0.0-0.4); Hematocrit 44.5 % (30.3-42.9); Hemoglobin 15.2 gm/dl (10.1-14.3); Lymphocytes # (Auto) 1.6 K/mm3 (1.2-5.4); Lymphocytes % (Auto) 12.4 % (13.4-35.0); Mean Corpuscular HGB Conc 34 % (30-34); Mean Corpuscular Volume 96 fl (79-97); Monocytes # (Auto) 0.9 K/mm3 (0.0-0.8); Monocytes % (Auto) 7.1 % (0.0-7.3); Platelet Count 271 K/mm3 (140-440); Red Blood Count 4.66 M/mm3 (3.65-5.03); Red Cell Distribution Width 13.3 % (13.2-15.2)
[2019-03-20 10:05] LABS: Alanine Aminotransferase 8 units/L (7-56); Albumin 4.3 g/dL (3.9-5); BUN/Creatinine Ratio 17; Blood Urea Nitrogen 15 mg/dL (7-17); Calcium 9.9 mg/dL (8.4-10.2); Hemolysis Index 1
[2019-03-20] MEDS ORDERED: BENADRYL IV ONE ×2 (10:08→12:53)
[2019-03-20] MEDS ORDERED: SOLU-Medrol IV ONE (12:53)
[2019-03-20] MEDS ORDERED: PERCOCET 5/325 PO ONE (14:03)
--- NOTE | 2019-03-20 14:41 | Cat Scan Report ---
CT chest w con INDICATION / CLINICAL INFORMATION: facial swelling with hx of metastaticbreast cancer. TECHNIQUE: Axial CT imaging of chest was obtained with IV contrast. Coronal and sagittal reformatted imaging obt ained and reviewed. All CT scans at this location are performed using CT dose reduction for ALARA by means of automated exposure control. COMPARISON: None available. FINDINGS: CT chest with contrast does not demonstrate any mediastinal or hilar mass or adenopathy. Thoracic aor ta demonstrates a small amount of calcific plaque but no evidence of aneurysmal dilatation. Heart siz e is normal. No pericardial effusion. The lungs are well-expanded. I do not see any evidence of pulmonary nodule or focal parenchymal disea se. There is no pleural effusion. There is some degree of motion artifact on the exam. It is possible that a very tiny pulmonary nodule may not be visualized due to the presence of this motion artifact. Imaging obtained of the upper abdomen is grossly unremarkable. Visualized portion of the liver and lynn th adrenal glands are unremarkable. No acute osseous abnormality noted. There is an obvious malignant mass in the left subareolar breast which has been recently biopsied. Th e mass measures approximately 3.9 cm in diameter. There is significant and prominent. The areolar ski n involvement and nipple retraction. Additionally there are multiple abnormal left axillary lymph nod es present as well as which have been biopsied recently. IMPRESSION: 1. Large left breast mass with metastatic left axillary adenopathy. This is a known breast malignancy and has been biopsied recently. 2. No acute finding within the thorax. No acute pulmonary disease. Please note that there is patient motion artifact present which does limit the quality of this exam slightly. Signer Name: Michelle Finn MD Signed: 03/20/2019 2:37 PM Workstation Name: [id number]
--- NOTE | 2019-03-20 14:43 | Cat Scan Report ---
CT facial boncontrastes w con INDICATION: Left facial swelling and pain beginning this morning. Recent fracture/loss of tooth per patient. TECHNIQUE: Axial, coronal and sagittal CT imaging was performed through the face after injection of 100 mL Omnip aque [address] scans at this location are performed using CT dose reduction for ALARA teddy chatterjee of automated exposure control. COMPARISON: None available. FINDINGS: Bones and joints: No acute fracture or dislocation. Degenerative changes are noted along the cervical spine. Soft tissues: There is generalized mild to moderate edema along the left side of the face extending f rom the maxillary region to the level of the mandible. No organized drainable fluid collection/absces s is seen. No mass or lymphadenopathy is seen. The aerodigestive tract appears patent and normal in c aliber. The parapharyngeal spaces are maintained. Sinuses: The right maxillary sinus is small, but clear. The remaining visualized sinuses appear unrem arkable. The mastoid air cells are clear. Orbits: No significant abnormality. Additional findings: None. IMPRESSION: Mild to moderate left facial edema without visualization of an organized drainable fluid collection/a bscess or acute osseous abnormality. Signer Name: Walter Manzanares MD Signed: 03/20/2019 2:39 PM Workstation Name: [id number]
[2019-03-20] MEDS ORDERED: CLEOCIN 900 MG/50 mL 900 MG/50 ML BAG IV ONE (14:56)
[2019-03-20 15:48] VITALS: BP 142/72
== END 2019-03-20 16:45 | disposition home or self-care (01) ==
LOC: ED 08:19
DX: L03.211 Cellulitis of face (principal); K08.89 Other specified disorders of teeth and supporting structures; I10 Essential (primary) hypertension; F41.9 Anxiety disorder, unspecified; E78.00 Pure hypercholesterolemia, unspecified; F17.200 Nicotine dependence, unspecified, uncomplicated; Z98.890 Other specified postprocedural states; Z86.73 Personal history of transient ischemic attack (TIA), and cerebral infarction without residual deficits; Z79.899 Other long term (current) drug therapy; Z91.013 Allergy to seafood; Z88.2 Allergy status to sulfonamides; Z91.018 Allergy to other foods
CPT/HCPCS: 36415; 70487; 71260; 80053; 85025; 96365; 96375; 96376; 99283; J1200; J2270; J2405; J2930; Q9967

== ENCOUNTER 2019-04-06 10:03 | Day surgery (SDC) | payer MEDICAID ==
[2019-04-06] MEDS ORDERED: ceFAZolin 2 GM in NACL 0.9% 100 ML IV ONE (10:58)
[2019-04-06] MEDS ORDERED: ZOFRAN IV PRN (11:04)
--- NOTE | 2019-04-06 11:05 | Anesthesia Day of Surgery ---
Anesthesia Day of Surgery - Day of Surgery Patient Examined: Yes Patient H&P Reviewed: Yes Patient is NPO: Yes
--- NOTE | 2019-04-06 11:09 | Anesthesia Consultation ---
Anesthesia Consult and Med Hx Date of service: 04/06/19 - Airway Anesthetic Teeth Evaluation: Chipped ROM Head & Neck: Adequate Mental/Hyoid Distance: Adequate Mallampati Class: Class II Intubation Access Assessment: Good - Pre-Operative Health Status ASA Pre-Surgery Classification: ASA2 Proposed Anesthetic Plan: General, MAC - Pulmonary Hx Smoking: Yes (SINCE AGE 19; 1/2PACK/DAY) Hx Asthma: No COPD: No Hx Pneumonia: No - Cardiovascular System Hx Hypertension: Yes (STATES RESOLVED; NO MEDS. ECHO [id number]) - Central Nervous System CVA: Yes (L SIDE WEAKNESS, DECREASE VISION) Hx Back Pain: Yes (Back surgery) Hx Psychiatric Problems: Yes - Gastrointestinal Hx Gastroesophageal Reflux Disease: Yes (Hiatal Hernia) - Endocrine Hx End Stage Renal Disease: No - Other Systems Hx Alcohol Use: No Hx Substance Use: Yes (COCAINE( 3 YEARS AGO); MARIJUANA) Hx Cancer: Yes (Breast)
[2019-04-06] MEDS ORDERED: LACTATED RINGERS 1,000 ML ONE (11:13)
[2019-04-06] MEDS ORDERED: TYLENOL PO NR (11:14)
[2019-04-06] MEDS ORDERED: MORPHINE IV NR (11:14)
[2019-04-06] MEDS ORDERED: ANCEF/STERILE WATER 2 GM/20 ML 2 GM/20 ML SYRINGE IV SCH (11:30)
[2019-04-06] MEDS: VERSED IV NR ×2 (11:42→12:14)
[2019-04-06] MEDS ORDERED: LACTATED RINGERS 1,000 ML IV SCH (12:00)
[2019-04-06] MEDS ORDERED: DILAUDID ONE (13:11)
[2019-04-06] MEDS ORDERED: XYLOCAINE MPF 2% ONE (13:11)
[2019-04-06] MEDS ORDERED: DIPRIVAN 10 MG/ML IV ONE ×2 (13:11→14:00)
[2019-04-06] MEDS ORDERED: MARCAINE 0.25% INFILTRATI ONE ×2 (13:13→13:44)
[2019-04-06] MEDS ORDERED: XYLOCAINE 1% 20 mL ONE (13:14)
[2019-04-06] MEDS ORDERED: NACL 0.9% 100 ML ONE (13:15)
[2019-04-06] MEDS ORDERED: VERSED ONE (13:29)
[2019-04-06] MEDS ORDERED: HEPARIN 10,000 UNITS/10 ML ONE (13:43)
[2019-04-06] MEDS ORDERED: XYLOCAINE 1% 20 mL INFILTRATI ONE (13:45)
[2019-04-06] MEDS ORDERED: HEPARIN 10,000 UNITS/10 ML IV ONE (13:45)
[2019-04-06] MEDS ORDERED: NACL 0.9% IR ONE (13:46)
--- NOTE | 2019-04-06 14:28 | Short Stay Summary ---
Short Stay Documentation Date of service: 04/06/19 - History Principal diagnosis: left breast cancer H&P: obtained from office - Allergies and Medications Current Medications: Allergies kiwi Allergy (Verified 04/05/19 11:03) Hives shellfish derived Allergy (Verified 04/05/19 11:03) Hives shrimp Allergy (Verified 04/05/19 11:03) Hives Sulfa (Sulfonamide Antibiotics) Allergy (Verified 04/05/19 11:03) Rash Home Medications Medication Instructions Recorded Confirmed Last Taken Type HYDROcodone/APAP 5-325 [[place] 1 each PO Q6HR PRN #12 tablet 03/20/19 04/05/19 Unknown Rx 5/325] Promethazine [Phenergan] 25 mg PO Q6HR PRN 04/05/19 04/05/19 Unknown History Active Medications Fentanyl (Sublimaze) 50 mcg IV Q5MIN PRN PRN Reason: Pain , Severe (7-10) Stop: 04/06/19 20:00 Cefazolin Sodium (Ancef/Sterile Water 2 Gm/20 Ml) 2 gm in 20 mls @ 80 mls/hr IV PREOP [place] Stop: 04/06/19 23:59 Lactated Ringer's (Lactated Ringers) 1,000 mls @ 125 mls/hr IV DIRECT [place] Last Admin: 04/06/19 11:30 Dose: 125 mls/hr Documented by: Midazolam HCl (Versed) 2 mg IV PREOP NR Stop: 04/06/19 23:59 Last Admin: 04/06/19 12:14 Dose: 2 mg Documented by: Ondansetron HCl (Zofran) 4 mg IV ONCE PRN PRN Reason: Nausea And Vomiting - Brief post op/procedure progress note Date of procedure: 04/06/19 Pre-op diagnosis: left breast cancer Post-op diagnosis: same Procedure: insertion right internal jugular port with mindray ultrasound guidance Anesthesia: MAC, local Findings: good placement of port without PTX on post op CXR Surgeon: ALYCIA HARTLEY Estimated blood loss: minimal Pathology: none Condition: stable - Hospital course Hospital course: Pt observed in PACU and discharged to home in stable condition when criteria met - Disposition Condition at discharge: Good Disposition: DC-01 TO HOME OR SELFCARE Short Stay Discharge Plan Activity: no restrictions Diet: regular Wound: open to air Additional Instructions: SEE PRINTED DISCHARGE INSTRUCTIONS Follow up with: PRIMARY CARE, [Primary Care Provider] - 7 Days ALYCIA HARTLEY DO [Staff Physician] - 10 Days
[2019-04-06] MEDS: SUBLIMAZE IV PRN ×4 (14:39→15:10)
[2019-04-06] MEDS ORDERED: NORCO 5/325 ONE (14:58)
--- NOTE | 2019-04-06 15:00 | Fluoroscopy Report ---
FLUOROSCOPY CENTRAL VENOUS DEVICE PLACEMENT HISTORY: Left breast cancer, Ysoifv-t-Mxiw insertion FINDINGS: 47 seconds of fluoroscopy time was provided by radiology during right IJ Ttnnfi-s-Ufqd inse rtion by the surgeon. 2 AP images of the chest are presented. The distal tip of the Kzogiv-c-Zaap ter minates in the superior right atrium. The lungs are clear. No pneumothorax. Normal heart and mediasti nal structures. IMPRESSION: Right IJ Etaitn-z-Omqy placement as described. No pneumothorax. Signer Name: Hardik Mccormick Jr, MD Signed: 04/06/2019 2:55 PM Workstation Name: [id number]
--- NOTE | 2019-04-06 15:03 | Operative Report ---
Operative Report Operative Report: Date of procedure: 04/06/19 Pre-op diagnosis: left breast cancer Post-op diagnosis: same Procedure: insertion right internal jugular port with mindray ultrasound guidance Anesthesia: MAC, local Findings: good placement of port without PTX on post op CXR Surgeon: ALYCIA HARTLEY Estimated blood loss: minimal Pathology: none Condition: stable - Hospital course Hospital course: Pt observed in PACU and discharged to home in stable condition when criteria met HPI and indication: Patient is a 58-year-old female who has recently been diagnosed with left-sided breast cancer. The patient is seen by Dr. Viveros and deemed a candidate for chemotherapy. All of the risks associated with the procedure were discussed with the patient including but not limited to pneumothorax, infection, bleeding, malpositioned port, injury to other structures. The patient understands and all questions were answered. Consent was signed and placed on chart. Procedure in detail: The patient was identified in the preoperative area, taken back to operating room, placed on operating table in supine position. After anesthesia was induced both arms were tucked and upper chest and neck were prepped and draped in usual sterile fashion. A timeout was performed. The was placed in Trendelenburg position. Local anesthetic was infiltrated into the skin at the intended puncture site. The right subclavian vein was seen using ultrasound, and one attempt was made to access it. Due to respiratory variation, I was unable to access the vein and therefore turned my attention to the right internal jugular vein. The right internal jugular vein was visualized on ultrasound and was small, collapsible, with a large amount of respiratory variation. The right internal jugular vein was accessed on the first stick and there was return of dark red nonpulsatile blood. The wire was threaded under fluoroscopy without resistance and positioning confirmed. The needle was then removed. Using a 15 blade, an incision was made in the LEFT upper chest and dissection carried down through the skin and subcutaneous tissue using Bovie electrocautery. Hemostasis was achieved along the way. A pocket for the port was then created bluntly and with electrocautery. The catheter was flushed and tunneled from the pocket to the wire. A breakaway catheter/dilator sheath then inserted over the wire under fluoroscopy, and the wire and dilator removed. The catheter was then inserted through the breakaway catheter which was then removed. The catheter sat flush under the skin. Using continuous fluoroscopy, the catheter was pulled back until the tip was visualized in the right atrium. The catheter was then cut to size and the port attached in the usual fashion. The port was then sutured into place to the pre-pectoral fascia using 2-0 Vicryl interrupted sutures. The wound was irrigated and hemostasis ensured. The port was tested with heparinized saline and there was return of blood and it flushed easily. The port was then instilled with 3000 units of heparin. The deep dermal layer was then closed with interrupted 3-0 Vicryl stitches. The skin incisions were closed with 4-0 Monocryl subcuticular stitches and skin glue. Intraoperative chest x-ray did show good positioning of the port, without evidence of pneumothorax At the end of the case, all sponge, instrument, sharp counts were correct 2. The patient was awoken from anesthesia and taken to PACU in stable condition
[2019-04-06] MEDS ORDERED: NORCO 5/325 PO PRN (15:23)
[2019-04-06 16:16] VITALS: BP 125/52
--- NOTE | 2019-04-06 16:34 | Post Anesthesia Evaluation ---
- Post Anesthesia Evaluation Patient Participated: Yes Airway Patent: Yes Stable Respiratory Function: Yes Nausea/Vomiting: No Temp > 96.8F: Yes Pain Manageable: Yes Adequeate Hydration: Yes Anesthesia Complications: No Block Receding Appropriately: Not Applicable Patient on Ventilator: No
== END 2019-04-06 16:10 | disposition home or self-care (01) ==
LOC: OR 10:03
PROVIDERS: ATTEND Surgery
DX: C50.912 Malignant neoplasm of unspecified site of left female breast (principal); I10 Essential (primary) hypertension; K21.9 Gastro-esophageal reflux disease without esophagitis; M19.90 Unspecified osteoarthritis, unspecified site; F32.9 Major depressive disorder, single episode, unspecified; F41.9 Anxiety disorder, unspecified; F17.210 Nicotine dependence, cigarettes, uncomplicated; F12.10 Cannabis abuse, uncomplicated; F14.10 Cocaine abuse, uncomplicated; Z80.0 Family history of malignant neoplasm of digestive organs; Z80.8 Family history of malignant neoplasm of other organs or systems; Z88.8 Allergy status to other drugs, medicaments and biological substances; Z91.013 Allergy to seafood; Z88.2 Allergy status to sulfonamides; Z72.89 Other problems related to lifestyle; Z79.899 Other long term (current) drug therapy; Z80.1 Family history of malignant neoplasm of trachea, bronchus and lung; Z80.42 Family history of malignant neoplasm of prostate; Z86.73 Personal history of transient ischemic attack (TIA), and cerebral infarction without residual deficits
CPT/HCPCS: 36561; 77001; C1769; C1788; J0690; J1170; J1644; J2250; J2270; J2704; J3010; J7120

== ENCOUNTER 2019-04-26 09:53 | Inpatient (IN) | payer MEDICAID ==
[2019-04-26 10:44] LABS: Hematocrit 32.4 % (30.3-42.9); Hemoglobin 10.8 gm/dl (10.1-14.3); Mean Corpuscular HGB Conc 33 % (30-34); Mean Corpuscular Volume 96 fl (79-97); Red Blood Count 3.37 M/mm3 (3.65-5.03); Red Cell Distribution Width 13.4 % (13.2-15.2)
[2019-04-26] MEDS ORDERED: ONDANSETRON 4 MG/2 ML INJ IV STA ×2 (10:49→14:01)
[2019-04-26] MEDS ORDERED: MORPHINE 4 MG/1 ML INJ IV STA (10:49)
[2019-04-26 10:54] LABS: INR 0.97 (0.87-1.13)
[2019-04-26 10:55] LABS: Partial Thromboplastin Time 23.1 Sec. (24.2-36.6)
[2019-04-26 11:06] LABS: Alanine Aminotransferase 6 units/L (7-56); Albumin 3.4 g/dL (3.9-5); BUN/Creatinine Ratio 25; Blood Urea Nitrogen 20 mg/dL (7-17); Calcium 8.4 mg/dL (8.4-10.2); Hemolysis Index 10
--- NOTE | 2019-04-26 11:09 | Emergency Department Report ---
ED Chest Pain HPI - General Chief Complaint: Chest Pain Stated Complaint: CHEST PAIN/LT ARM PAIN Time Seen by Provider: 04/26/19 10:45 Source: patient Mode of arrival: Ambulatory Limitations: No Limitations - History of Present Illness MD Complaint: chest pain Onset: during rest, during exertion Pain Location: left chest Pain Radiation: none Severity scale (0 -10): 8 Quality: tightness, aching Consistency: constant Improves With: nothing Worsens With: exertion re: dyspnea Treatments Prior to Arrival: none - Related Data Home Medications Medication Instructions Recorded Confirmed Last Taken Promethazine [Phenergan] 25 mg PO Q6HR PRN 04/05/19 04/26/19 Unknown Omeprazole 40 mg PO DAILY 04/26/19 04/26/19 Unknown Allergies Allergy/AdvReac Type Severity Reaction Status Date / Time kiwi Allergy Hives Verified 04/26/19 10:02 shellfish derived Allergy Hives Verified 04/26/19 10:02 shrimp Allergy Hives Verified 04/26/19 10:02 Sulfa (Sulfonamide Allergy Rash Verified 04/26/19 10:02 Antibiotics) Heart Score - HEART Score History: Moderately suspicious EKG: Normal Age: 45-65 Risk factors: 1-2 risk factors Troponin: < normal limit HEART Score: 3 ED Review of Systems ROS: Stated complaint: CHEST PAIN/LT ARM PAIN Other details as noted in HPI Comment: All other systems reviewed and negative ED Past Medical Hx - Past Medical History Hx Hypertension: Yes (STATES RESOLVED; NO MEDS. ECHO [id number]) Hx CVA: Yes Hx Diabetes: No Hx GERD: Yes Hx Arthritis: Yes Hx Headaches / Migraines: Yes Hx Psychiatric Treatment: Yes (anxiety) Hx Asthma: No Hx COPD: No Hx HIV: No Additional medical history: high chol. DJD lower back - Surgical History Additional Surgical History: fusion Lumbar spine. tonsills - Social History Smoking Status: Current Every Day Smoker Substance Use Type: None - Medications Home Medications: Home Medications Medication Instructions Recorded Confirmed Last Taken Type Promethazine [Phenergan] 25 mg PO Q6HR PRN 04/05/19 04/26/19 Unknown History Omeprazole 40 mg PO DAILY 04/26/19 04/26/19 Unknown History ED Physical Exam - General Limitations: No Limitations General appearance: alert, in no apparent distress - Head Head exam: Present: atraumatic, normocephalic - Eye Eye exam: Present: normal appearance - ENT ENT exam: Present: mucous membranes moist, TM's normal bilaterally - Neck Neck exam: Present: normal inspection, full ROM - Respiratory Respiratory exam: Present: normal lung sounds bilaterally, other (a portable to the right upper chest site has mild erythema. No crepitus noted. No discharge. There isno subcutaneous emphysema noted.). Absent: respiratory distress - Cardiovascular Cardiovascular Exam: Present: regular rate, normal rhythm. Absent: systolic murmur, diastolic murmur, rubs, gallop - GI/Abdominal GI/Abdominal exam: Present: soft, normal bowel sounds. Absent: tenderness, guarding, organomegaly, mass, bruit - Extremities Exam Extremities exam: Present: normal inspection, normal capillary refill - Back Exam Back exam: Present: normal inspection - Neurological Exam Neurological exam: Present: alert, oriented X3, CN II-XII intact - Psychiatric Psychiatric exam: Present: normal affect, normal mood. Absent: anxious, flat affect, manic, homicidal ideation, suicidal ideation - Skin Skin exam: Present: warm, dry, intact, normal color. Absent: rash, cyanosis, di aphoretic, erythema, petechiae, pallor, abrasion, ecchymosis ED Course Vital Signs 04/26/19 04/26/19 04/26/19 11:00 11:10 11:56 Temperature 98.3 F Pulse Rate 84 68 147 H Respiratory 17 18 Rate Blood Pressure Blood Pressure 107/65 [Right] O2 Sat by Pulse 97 Oximetry 04/26/19 04/26/19 04/26/19 12:00 12:15 12:30 Temperature Pulse Rate 64 63 61 Respiratory 24 22 26 H Rate Blood Pressure 106/62 112/73 Blood Pressure [Right] O2 Sat by Pulse 97 92 97 Oximetry 04/26/19 04/26/19 04/26/19 12:45 13:00 13:49 Temperature Pulse Rate 61 63 74 Respiratory 16 22 18 Rate Blood Pressure 113/65 113/65 Blood Pressure 112/63 [Right] O2 Sat by Pulse 98 99 100 Oximetry - Reevaluation(s) Reevaluation #1: 04/26/19 13:57 Case was discussed with hospitalist, Dr. Diaz. He plans to come and evaluate this Guzman for further admission. He was aware of the history and findings and need for admission. MAURICE score - Maurice Score Age > 65: (0) No Aspirin use within the Past 7 Days: (0) No 2 or more Angina events in past 24 hrs: (0) No Known CAD with more than 50% Stenosis: (0) No Elevated Cardiac Markers: (0) No ST Deviation Greater than 0.5mm: (0) No ED Medical Decision Making - Lab Data Result diagrams: 04/26/19 10:10 04/26/19 10:10 Critical care attestation.: If time is entered above; I have spent that time in minutes in the direct care of this critically ill patient, excluding procedure time. ED Disposition Clinical Impression: Chest pain Disposition: DC-09 OP ADMIT IP TO THIS HOSP Is pt being admited?: Yes Does the pt Need Aspirin: No Condition: Stable Instructions: Chest Pain (ED) Referrals: PRIMARY CARE, [Primary Care Provider] - 3-5 Days
--- NOTE | 2019-04-26 11:13 | XRay Report ---
CHEST 2 VIEWS INDICATION: Chest Pain. COMPARISON: 04/06/2019 FINDINGS: Support devices: Hayull-n-Xlul catheters tip in superior vena cava Heart: Within normal limits. Lungs: Faint prominence of the interstitium is noted. No acute air space disease Pleura: No significant pleural effusion. No pneumothorax. Additional findings: None. IMPRESSION: 1. No significant change in the faint increased interstitial process Signer Name: Felipe Rodriguez MD Signed: 04/26/2019 11:09 AM Workstation Name: [id number]
[2019-04-26 12:10] LABS: Bilirubin,Urine NEG (Negative); Blood,Urine NEG (Negative); Color,Urine Yellow (Yellow); Protein,Urine <15 mg/dL mg/dL (Negative); RBC,Urine < 1.0 /HPF (0.0-6.0); Urobilinogen,Urine < 2.0 mg/dL (<2.0)
[2019-04-26 12:15] LABS: Amphetamine Screen,Urine PRESUMPTIVE NEGATIVE; Benzodiazepines Screen,Urine PRESUMPTIVE NEGATIVE; Cannabinoid Screen,Urine PRESUMPTIVE NEGATIVE; Cocaine Screen,Urine PRESUMPTIVE NEGATIVE; Methadone Screen,Urine PRESUMPTIVE NEGATIVE
[2019-04-26 12:39] LABS: Band Neutrophils # (Manual) 13.4 K/mm3; Basophils % (Manual) 0 % (0.0-1.8); Eosinophils % (Manual) 0 % (0.0-4.3); Total Cells Counted 100
[2019-04-26 12:42] LABS: Large Platelets Few; Platelet Estimate Consistent w Auto; Stomatocytes Rare
[2019-04-26 12:45] LABS: Opiate Screen,Urine PRESUMPTIVE POSITIVE
[2019-04-26 12:50] LABS: Platelet Count 312 K/mm3 (140-440)
--- NOTE | 2019-04-26 12:54 | Cat Scan Report ---
CTA CHEST WITH IV CONTRAST INDICATION / CLINICAL INFORMATION: chest pain and sob. TECHNIQUE: Axial CT images were obtained through the chest after injection of IV contrast. 3 plane MIP and/or 3D reconstructions were produced. All CT scans at this location are performed using CT dose reduction f or ALARA by means of automated exposure control. COMPARISON: CT of the chest dated 03/20/2019 is compared FINDINGS: PULMONARY ARTERIES: No pulmonary emboli. THORACIC AORTA: No significant abnormality. HEART: No significant abnormality. CORONARY ARTERIES: No significant calcification. PLEURA: No pleural effusion. No pneumothorax. LYMPH NODES: No significant adenopathy. LUNGS: Faint prominence of the interstitium is present unchanged from previous exam ADDITIONAL FINDINGS: None. UPPER ABDOMEN: Multiple small lymph nodes are present involving the angie hepatis region and upper me sentery as well as retroperitoneum SKELETAL STRUCTURES: No significant osseous abnormality. IMPRESSION: 1. No CT evidence for pulmonary embolism. 2. Prominent interstitium 3. Multiple small lymph nodes in the upper mesentery, upper retroperitoneum and angie hepatis. Signer Name: Felipe Rodriguez MD Signed: 04/26/2019 12:49 PM Workstation Name: [id number]
[2019-04-26] MEDS ORDERED: diphenhydrAMINE 50 MG/ML VIAL IV STA (14:01)
[2019-04-26] MEDS ORDERED: HYDROmorphone 1 MG/1 ML INJ IV STA (14:01)
[2019-04-26] MEDS ORDERED: METOCLOPRAMIDE 10 MG/2 ML INJ IV STA (14:01)
[2019-04-26] MEDS ORDERED: ASPIRIN 325 MG TAB PO ONE (14:02)
--- NOTE | 2019-04-26 14:16 | History and Physical Report ---
History of Present Illness Chief complaint: It hurts around my port site History of present illness: 58 YO Female with Breast Cancer currently undergoing Chemotherapy, GERD, OA, Migraine Headache, HLD, Nicotine Dependence, DJD, Chronic Back Pain, Anxiety presents to ED for evaluation. Pt states that she has pain in her right chest over her port site. Pt also reports tenderness and redness to the skin around the port site. Pt states that she also hurts all over her body. Pt notified her Oncologist, who instructed patient to seek further care at [facility]. Pt transported to [facility] via private vehicle. Pt seen and evaluated in ED and found to have SIRS, Cellulitis to Left Chest, Acidosis, as well as elevated WBC count with suspicion of Leukemia. Pt initiated on IV antibiotic therapy and admitted to medical floor. Pt acknowledges shaking chills. Pt denies fever, shortness of breath, BRBPR, Productive cough, trauma, BRBPR, or recent ill contacts. No prior admission for review. All listed medication reconciled at time of admission. Past History Past Medical History: arthritis, cancer, GERD, hyperlipidemia, other (Chronic Pain) Past Surgical History: tonsillectomy, Other (Lumbar fusion,) Social history: single, smoking Family history: hypertension Medications and Allergies Allergies Allergy/AdvReac Type Severity Reaction Status Date / Time kiwi Allergy Hives Verified 04/26/19 10:02 shellfish derived Allergy Hives Verified 04/26/19 10:02 shrimp Allergy Hives Verified 04/26/19 10:02 Sulfa (Sulfonamide Allergy Rash Verified 04/26/19 10:02 Antibiotics) Home Medications Medication Instructions Recorded Confirmed Last Taken Type Promethazine [Phenergan] 25 mg PO Q6HR PRN 04/05/19 04/26/19 Unknown History Omeprazole 40 mg PO DAILY 04/26/19 04/26/19 Unknown History Review of Systems Constitutional: chills, no weight loss, no weight gain, no fever, no fatigue Ears, nose, mouth and throat: no ear pain, no ear discharge, no tinnitis, no decreased hearing, no nose pain, no nasal congestion, no nasal discharge Breasts: no swelling, no mass Cardiovascular: no orthopnea, no palpitations, no rapid/irregular heart beat, no edema, no syncope, no lightheadedness, no shortness of breath, no dyspnea on exertion, no paroxysmal nocturnal dyspnea, no phlebitis, no leg edema, no dec reased exercise tolerance Respiratory: no cough, no cough with sputum, no excessive sputum, no hemoptysis Gastrointestinal: no abdominal pain, no nausea, no vomiting, no diarrhea, no constipation Genitourinary Female: no pelvic pain, no flank pain, no menorrhagia, no dysuria, no urinary frequency, no urgency, no post void dribbling, no incomplete emptying Rectal: no pain, no incontinence, no bleeding Musculoskeletal: no neck stiffness, no neck pain, no shooting arm pain, no low back pain, no leg numbness/tingling Integumentary: other (Redness over port site to right chest ), no rash Neurological: no head injury, no transient paralysis, no weakness, no parathesias, no numbness, no tingling, no seizures Psychiatric: anxiety, no memory loss, no sleep disturbances, no insomnia, no hypersomnia, no change in appetite, no change in libido, no suicidal ideation Endocrine: no cold intolerance, no heat intolerance, no polyphagia, no polydipsia, no polyuria, no nocturia, no excessive sweating, no weight change Hematologic/Lymphatic: no easy bleeding, no lymphedema Allergic/Immunologic: no persistent infections, no anaphylaxis Exam - Constitutional Vitals: Temp Pulse Resp BP Pulse Ox 98.3 F 74 18 112/63 100 04/26/19 11:10 04/26/19 13:49 04/26/19 13:49 04/26/19 13:49 04/26/19 13:49 General appearance: Present: mild distress - EENT Eyes: Present: PERRL ENT: hearing intact, clear oral mucosa - Neck Neck: Present: supple, normal ROM - Respiratory Respiratory effort: normal Respiratory: bilateral: CTA - Cardiovascular Heart Sounds: Present: S1 & S2. Absent: rub, click - Extremities Extremities: pulses symmetrical, No edema Extremity abnormal: erythema, tenderness, other (Right chest wall around port site: Redness/tenderness) Peripheral Pulses: within normal limits - Abdominal General gastrointestinal: Present: soft, non-tender, non-distended, normal bowel sounds Female genitourinary: Present: normal - Integumentary Integumentary: Present: clear, warm, dry - Musculoskeletal Musculoskeletal: gait normal, strength equal bilaterally - Psychiatric Psychiatric: appropriate mood/affect, intact judgment & insight - Neurologic Neurologic: CNII-XII intact, moves all extremities Results - Labs CBC & Chem 7: 04/26/19 10:10 04/26/19 10:10 Labs: Abnormal lab results 04/26/19 04/26/19 04/26/19 Range/Units 10:10 10:10 10:10 WBC 53.6 H* (4.5-11.0) K/mm3 RBC 3.37 L (3.65-5.03) M/mm3 Seg Neuts % (Manual) 75.0 H (40.0-70.0) % Lymphocytes % (Manual) 0 L (13.4-35.0) % Seg Neutrophils # Man 40.2 H (1.8-7.7) K/mm3 Lymphocytes # (Manual) 0.0 L (1.2-5.4) K/mm3 APTT 23.1 L (24.2-36.6) Sec. Sodium 136 L (137-145) mmol/L Carbon Dioxide 18 L (22-30) mmol/L BUN 20 H (7-17) mg/dL Glucose 117 H (65-100) mg/dL ALT 6 L (7-56) units/L Albumin 3.4 L (3.9-5) g/dL Assessment and Plan - Patient Problems (1) SIRS (systemic inflammatory response syndrome) Current Visit: Yes Status: Acute Plan to address problem: CBC, CMP, IV antibiotic therapy, blood cultures, urinalysis, chest x ray. (2) Acidosis Current Visit: Yes Status: Acute Plan to address problem: IVF resuscitation therapy, repeat bmp (3) Acute leukemia Current Visit: Yes Status: Suspected Plan to address problem: Oncology consulted. continue supportive care. (4) Cellulitis Current Visit: Yes Status: Acute Qualifiers: Site of cellulitis of trunk: chest wall Plan to address problem: IV antibiotic therapy, cbc, supportive care. blood culture from port site (5) Port-A-Cath in place Current Visit: Yes Status: Acute Plan to address problem: supportive care, blood culture from port site. (6) Breast cancer Current Visit: Yes Status: Acute Qualifiers: Laterality: left Plan to address problem: Supportive care, Pt currently undergoing chemo treatment regimen. (7) Chronic pain disorder Current Visit: Yes Status: Acute Plan to address problem: supportive care, Methadone BID. (8) DVT prophylaxis Current Visit: Yes Status: Acute Plan to address problem: SCD to BLE while in bed, Prophylactic lovenox
[2019-04-26 14:37] LABS: Monocytes % (Manual) 0.5 % (0.0-7.3)
[2019-04-26] MEDS ORDERED: ALBUTEROL 2.5 MG/3 ML NEBU IH PRN (14:37)
[2019-04-26 14:39] LABS: Toxic Granulation 1+
[2019-04-26] MEDS ORDERED: PROMETHAZINE 25 MG TAB PO PRN (14:39)
[2019-04-26] MEDS ORDERED: VANCOMYCIN/NS 1 GM/250 ML 1 GM/250 ML BAG IV ONE (14:45)
[2019-04-26] MEDS ORDERED: VANCOMYCIN PHARMACY TO DOSE IV SCH (15:00)
[2019-04-26] MEDS ORDERED: VANCOMYCIN/NS 1 GM/250 ML 1 GM/250 ML BAG IV SCH (16:00)
[2019-04-26] MEDS ORDERED: HYDROmorphone 2 MG/1 ML INJ IV ONE (16:05)
[2019-04-26] MEDS ORDERED: HYDROmorphone 1 MG/1 ML INJ ONE (16:09)
[2019-04-26] MEDS ORDERED: SODIUM CHLORIDE 0.9% 100 ML IVPB IV SCH (19:45)
[2019-04-26] MEDS ORDERED: SODIUM CHLORIDE 0.9% 500 ML 500 ML ONE (20:00)
[2019-04-26] MEDS ORDERED: SODIUM CHLORIDE 0.9% 500 ML 500 ML IV ONE ×3 (21:00→22:37)
[2019-04-26] MEDS: ONDANSETRON 4 MG/2 ML INJ IV PRN (21:08)
[2019-04-26] MEDS: ACETAMINOPHEN 325 MG TAB PO PRN (21:08)
[2019-04-26] MEDS: METHADONE 5 MG TAB PO PRN (22:41)
[2019-04-27] MEDS: METHADONE 5 MG TAB PO PRN (06:43)
[2019-04-27] MEDS: ONDANSETRON 4 MG/2 ML INJ IV PRN ×3 (06:43→23:16)
--- NOTE | 2019-04-27 07:44 | Event Note ---
Date: 04/27/19 [id number]
[2019-04-27 09:45] LABS: Hematocrit 27.7 % (30.3-42.9); Hemoglobin 9.5 gm/dl (10.1-14.3); Mean Corpuscular HGB Conc 35 % (30-34); Mean Corpuscular Volume 95 fl (79-97); Platelet Count 232 K/mm3 (140-440); Red Blood Count 2.92 M/mm3 (3.65-5.03); Red Cell Distribution Width 13.2 % (13.2-15.2)
[2019-04-27] MEDS ORDERED: NON-FORMULARY EACH (Omeprazole [Omeprazole] 40 MG) PO SCH (10:00)
[2019-04-27] MEDS ORDERED: ENOXAPARIN 30 MG/0.3 ML INJ SUB-Q SCH (10:00)
[2019-04-27 10:01] LABS: BUN/Creatinine Ratio 21; Blood Urea Nitrogen 15 mg/dL (7-17); Calcium 8.1 mg/dL (8.4-10.2); Hemolysis Index 1
[2019-04-27 10:24] LABS: Band Neutrophils # (Manual) 0.7 K/mm3; Basophils % (Manual) 0 % (0.0-1.8); Eosinophils % (Manual) 0 % (0.0-4.3); Monocytes % (Manual) 0 % (0.0-7.3); Total Cells Counted 100
[2019-04-27 10:31] LABS: Stomatocytes Few
[2019-04-27 10:34] LABS: Dohle Bodies 1+; Platelet Estimate Consistent w Auto
[2019-04-27] MEDS: VANCOMYCIN/NS 1 GM/250 ML 1 GM/250 ML BAG IV SCH ×2 (10:35→21:12)
[2019-04-27] MEDS: PANTOPRAZOLE 40 MG TAB PO SCH (10:46)
[2019-04-27] MEDS: HYDROmorphone 1 MG/1 ML INJ IV PRN ×3 (10:46→21:12)
[2019-04-27] MEDS: ENOXAPARIN 40 MG/0.4 ML INJ SUB-Q SCH (10:46)
--- NOTE | 2019-04-27 12:55 | Consultation ---
History of Present Illness - Reason for Consult Consult date: 04/27/19 - History of Present Illness HPI: 58yo female with hx significant for newly dx of left breast cancer approximately 2 months ago which the patient had right IJ port placed for chemotherapy. The patient has had the port accessed 3 times chemotx and IVF. She has noticed intermittent neck pain and swelling since the insertion of the port. She has noticed intermittent fevers and chills over the past week and was instructed to present to ED. In addition, the patient has noticed left breast discharge over the past week that has since stopped. PE: NAD, A&Ox3 non-labored respirations RRR right chest port site with no edema or erythema noted bilateral neck supple with mild TTP no obvious neck/facial swelling noted both arms and legs warm and well perfused, no edema noted labs reviewed Chest CTA reviewed Plan: Patient with advanced breast cancer with associated lesion visible to the left breast port does not seem to be obviously infected, cultures pending ultrasound pending to evaluate for DVT no immediate surgical intervention warranted at this time will continue to follow Past History Past Medical History: arthritis, cancer, GERD, hyperlipidemia, other (Chronic Pain) Past Surgical History: tonsillectomy, Other (Lumbar fusion,) Social history: single, smoking Family history: hypertension Medications and Allergies Allergies Allergy/AdvReac Type Severity Reaction Status Date / Time kiwi Allergy Hives Verified 04/26/19 10:02 shellfish derived Allergy Hives Verified 04/26/19 10:02 shrimp Allergy Hives Verified 04/26/19 10:02 Sulfa (Sulfonamide Allergy Rash Verified 04/26/19 10:02 Antibiotics) Home Medications Medication Instructions Recorded Confirmed Last Taken Type Promethazine [Phenergan] 25 mg PO Q6HR PRN 04/05/19 04/26/19 Unknown History Omeprazole 40 mg PO DAILY 04/26/19 04/26/19 Unknown History Active Meds: Active Medications Acetaminophen (Tylenol) 650 mg PO Q4H PRN PRN Reason: Pain MILD(1-3)/Fever >100.5/BARONE Last Admin: 04/26/19 21:08 Dose: 650 mg Documented by: Acetaminophen/Hydrocodone Bitart ([place] 10/325) 1 each PO Q6H PRN PRN Reason: Pain, Moderate (4-6) Albuterol (Proventil) 2.5 mg IH Q4HRT PRN PRN Reason: Shortness Of Breath Enoxaparin Sodium (Lovenox) 40 mg SUB-Q QDAY@1000 [place] Last Admin: 04/27/19 10:46 Dose: 40 mg Documented by: Hydromorphone HCl (Dilaudid) 1 mg IV Q4H PRN PRN Reason: Pain , Severe (7-10) Last Admin: 04/27/19 10:46 Dose: 1 mg Documented by: Vancomycin HCl (Vancomycin/Ns 1 Gm/250 Ml) 1 gm in 250 mls @ 125 mls/hr IV Q12HR [place]; Protocol Last Admin: 04/27/19 10:35 Dose: 125 mls/hr Documented by: Ondansetron HCl (Zofran) 4 mg IV Q8H PRN PRN Reason: Nausea And Vomiting Last Admin: 04/27/19 06:43 Dose: 4 mg Documented by: Pantoprazole Sodium (Protonix) 40 mg PO DAILY [facility] [place] Last Admin: 04/27/19 10:46 Dose: 40 mg Documented by: Promethazine HCl (Phenergan) 25 mg PO Q6HR PRN PRN Reason: Nausea Sodium Chloride (Sodium Chloride Flush Syringe 10 Ml) 10 ml IV BID [facility] [place] Last Admin: 04/27/19 10:36 Dose: 10 ml Documented by: Sodium Chloride (Sodium Chloride Flush Syringe 10 Ml) 10 ml IV PRN PRN PRN Reason: LINE FLUSH Last Admin: 04/26/19 21:08 Dose: 10 ml Documented by: Sodium Chloride (Sodium Chloride Flush Syringe 10 Ml) 10 ml IV PRN PRN PRN Reason: LINE FLUSH Last Admin: 04/27/19 06:43 Dose: 10 ml Documented by: Sodium Chloride (Nacl 0.9%) 500 ml IV DIRECT [facility] [place] Exam - Constitutional Vitals: Temp Pulse Resp BP Pulse Ox 99.4 F 62 16 118/47 97 04/27/19 05:16 04/27/19 05:16 04/27/19 05:16 04/27/19 05:16 04/27/19 10:00 Results - Labs CBC & Chem 7: 04/27/19 08:22 04/27/19 08:22 Labs: Abnormal lab results 04/26/19 04/27/19 04/27/19 Range/Units 10:10 08:22 08:22 WBC 53.6 H* 22.4 H (4.5-11.0) K/mm3 RBC 3.37 L 2.92 L (3.65-5.03) M/mm3 Hgb 9.5 L (10.1-14.3) gm/dl Hct 27.7 L (30.3-42.9) % MCH 33 H (28-32) pg MCHC 35 H (30-34) % Seg Neuts % (Manual) 96.0 H 93.0 H (40.0-70.0) % Lymphocytes % (Manual) 1.5 L 4.0 L (13.4-35.0) % Seg Neutrophils # Man 40.2 H 20.8 H (1.8-7.7) K/mm3 Lymphocytes # (Manual) 0.0 L 0.9 L (1.2-5.4) K/mm3 Carbon Dioxide 20 L (22-30) mmol/L Glucose 107 H (65-100) mg/dL Calcium 8.1 L (8.4-10.2) mg/dL
--- NOTE | 2019-04-27 13:21 | Consultation ---
History of Present Illness - Reason for Consult Consult date: 04/27/19 infected port Requesting physician: CHAVEZ NICOLE - History of Present Illness 58 y/o female with history of smoking abuse, breast cancer diagnosed [address] Viveros and Dr Santiago s/p chemo x 2 via a right sided port-A-cath. Port was placed on 04/06/2019. Admitted on 04/26/2019 due to port site pain and erythema associated with malaise and subjective fever. Patient reports port- site pain since placement. Also states subjective fever last week. Her left breast cancer is to the skin with a chronic ulcerated mass draining at times. Denies erythema or edema to the port or the breast mass. Denies cough, SOB, urinary symptoms, abdominal pain, diarrhea. In the ED, temp 98.3-->101.9, HR 84-->147, BP 107/65. WBC 53.6. Creat 0.8. UA negative, Blood culture 04/26/2019 no growth today. CXR negative. Chest CTA no CT evidence for pulmonary embolism and multiple small lymph nodes in the upper mesentery, upper retroperitoneum and angie hepatis. ID consulted for possible port site infection. Review of Systems: General:+ fever, +malaise Cutaneous: +left breast ulcerated mass +port site pain Head: no headaches or injury Eyes: no changes in vision, eye pain, double vision Ears: no ear pain, ear discharge, ringing or hearing loss Nose: no nose bleeding, stuffiness Mouth & throat: no bleeding gums, no horseness, no dental problems, or swollen glands Neck: no pain, node enlargement/lumps, tyroid enlargement or tenderness Respiratory: no SOB, no cough, no LI, wheezing, sputum, hemoptysis, pleuritic chest pain Cardiovascular: no chest pain, leg edema, cyanosis, LI, orthopnea Musculoskeletal: Gastrointestinal: no nausea, no vomiting, no hematemesis, diarrhea, constipation, melena, bright red blood in stools, fecal incontinence, jaundice Genitourinary/Reproductive: no frequent urination, dysuria, hematuria, incontinence Neurogical: no seizures, no headaches, no weakness, no paresthesias, no loss of speech or vision; no memory loss, no vertigo, no tremors, no numbness Psychiatric: stable mood; no excessive anxiety, sadness or moodiness Past History Past Medical History: arthritis, cancer, GERD, hyperlipidemia, other (Chronic Pain) Past Surgical History: tonsillectomy, Other (Lumbar fusion,) Social history: single, smoking Family history: hypertension Medications and Allergies Allergies Allergy/AdvReac Type Severity Reaction Status Date / Time kiwi Allergy Hives Verified 04/26/19 10:02 shellfish derived Allergy Hives Verified 04/26/19 10:02 shrimp Allergy Hives Verified 04/26/19 10:02 Sulfa (Sulfonamide Allergy Rash Verified 04/26/19 10:02 Antibiotics) Home Medications Medication Instructions Recorded Confirmed Last Taken Type Promethazine [Phenergan] 25 mg PO Q6HR PRN 04/05/19 04/26/19 Unknown History Omeprazole 40 mg PO DAILY 04/26/19 04/26/19 Unknown History Active Meds: Active Medications Acetaminophen (Tylenol) 650 mg PO Q4H PRN PRN Reason: Pain MILD(1-3)/Fever >100.5/BARONE Last Admin: 04/26/19 21:08 Dose: 650 mg Documented by: Acetaminophen/Hydrocodone Bitart ([place] 10/325) 1 each PO Q6H PRN PRN Reason: Pain, Moderate (4-6) Albuterol (Proventil) 2.5 mg IH Q4HRT PRN PRN Reason: Shortness Of Breath Enoxaparin Sodium (Lovenox) 40 mg SUB-Q QDAY@1000 [place] Last Admin: 04/27/19 10:46 Dose: 40 mg Documented by: Hydromorphone HCl (Dilaudid) 1 mg IV Q4H PRN PRN Reason: Pain , Severe (7-10) Last Admin: 04/27/19 10:46 Dose: 1 mg Documented by: Vancomycin HCl (Vancomycin/Ns 1 Gm/250 Ml) 1 gm in 250 mls @ 125 mls/hr IV Q12HR [place]; Protocol Last Admin: 04/27/19 10:35 Dose: 125 mls/hr Documented by: Ondansetron HCl (Zofran) 4 mg IV Q8H PRN PRN Reason: Nausea And Vomiting Last Admin: 04/27/19 06:43 Dose: 4 mg Documented by: Pantoprazole Sodium (Protonix) 40 mg PO DAILY [place] Last Admin: 04/27/19 10:46 Dose: 40 mg Documented by: Promethazine HCl (Phenergan) 25 mg PO Q6HR PRN PRN Reason: Nausea Sodium Chloride (Sodium Chloride Flush Syringe 10 Ml) 10 ml IV BID [facility] Last Admin: 04/27/19 10:36 Dose: 10 ml Documented by: Sodium Chloride (Sodium Chloride Flush Syringe 10 Ml) 10 ml IV PRN PRN PRN Reason: LINE FLUSH Last Admin: 04/26/19 21:08 Dose: 10 ml Documented by: Sodium Chloride (Sodium Chloride Flush Syringe 10 Ml) 10 ml IV PRN PRN PRN Reason: LINE FLUSH Last Admin: 04/27/19 06:43 Dose: 10 ml Documented by: Sodium Chloride (Nacl 0.9%) 500 ml IV DIRECT [place] Physical Examination - Physical Exam Narrative exam: General appearance: Alert in NAD Eyes: anicteric sclerae, moist conjunctivae; no lid-lag; PERRLA HENT: Atraumatic; oropharynx clear with moist mucous membranes and no mucosal ulcerations/no oral thrush; normal hard and soft palate. Lungs: CTA, with normal respiratory effort and no intercostal retractions CV: RRR no murmur Abdomen: Soft, non-tender Extremities: edema Skin: +right sided port with mild tenderness and edema but no erythema or drainage. +left breast ulcerated mass with no drainage or erythema. Psych: Appropriate affect, alert and oriented to person, place and time. Neuro: alert and oriented x 3. Moving all extermities - Constitutional Vitals: Vital Signs Temp Pulse Resp BP Pulse Ox 99.2 F 66 18 127/47 92 04/27/19 12:21 04/27/19 12:21 04/27/19 12:21 04/27/19 12:21 04/27/19 12:21 Temperature -Last 24 Hours Temperature 99.2 F Temperature 99.4 F Temperature 99.5 F Temperature 101.9 F Temperature 98.2 F Results - Labs CBC & Chem 7: 04/27/19 08:22 04/27/19 08:22 Labs: Abnormal lab results 04/26/19 04/27/19 04/27/19 Range/Units 10:10 08:22 08:22 WBC 22.4 H (4.5-11.0) K/mm3 RBC 2.92 L (3.65-5.03) M/mm3 Hgb 9.5 L (10.1-14.3) gm/dl Hct 27.7 L (30.3-42.9) % MCH 33 H (28-32) pg MCHC 35 H (30-34) % Seg Neuts % (Manual) 96.0 H 93.0 H (40.0-70.0) % Lymphocytes % (Manual) 1.5 L 4.0 L (13.4-35.0) % Seg Neutrophils # Man 20.8 H (1.8-7.7) K/mm3 Lymphocytes # (Manual) 0.9 L (1.2-5.4) K/mm3 Carbon Dioxide 20 L (22-30) mmol/L Glucose 107 H (65-100) mg/dL Calcium 8.1 L (8.4-10.2) mg/dL Assessment and Plan Cultures: Blood culture 04/26/2019 no growth today. Assessment: 58 y/o female with history of smoking abuse, metastatic breast cancer (invasive poorly differentiated ductal and lobular) diagnosed in February [address] Viveros and Dr Santiago s/p chemo x 2 via a right sided port-A-cath, admitted on 04/26/2019 due to port site pain and erythema associated with malaise and subjec tive fever: 1) SIRS: present on admission with fever, tachycardia, leukemoid reaction, etiology unclear. DDx port-site infection (no obvious on exam and blood culture are pending) v/s metastatic ulcerative left breast cancer causing reactive leukocytosis v/s breast cancer site cellulitis/ abscess (no obvious on exam). No history of recent diarrhea to consider C diff colitis. CXR negative. CTA with no pneumonia and positive multiple intraabominal LNs. Unknown if she received G- CSF for neutropenia with now post G-CSF neutrophilia. Port was placed on 04/06/2019 Recommendations: follow up blood cultures continue vancomycin with PK consult agree with port site US obtain TTE monitor leukocytosis surgical consult Will follow. Rachell Sylvester MD Infectious Diseases Retail Store Assistant [facility], [place], [facility] ([facility]) M [phone] O [phone]
[2019-04-27] MEDS: ACETAMINOPHEN 325 MG TAB PO PRN (16:39)
--- NOTE | 2019-04-27 18:23 | Vascular Lab Report ---
DUPLEX DOPPLER UPPER EXTREMITY VENOUS, RIGHT INDICATION: chemoport check. TECHNIQUE: Duplex doppler imaging was performed through the veins of the right upper extremity using venous comp ression and other maneuvers. COMPARISON: None available. FINDINGS: Right Internal Jugular vein: Negative. Right Subclavian vein: Negative. Right cephalic vein: Negative. Additional findings: No subcutaneous edema or fluid collection is seen surrounding the right chest po rt site. IMPRESSION: 1. No sonographic evidence for DVT in the right upper extremity. Signer Name: Morteza Odonnell MD Signed: 04/27/2019 6:19 PM Workstation Name: [id number]
--- NOTE | 2019-04-27 19:58 | Progress Note ---
Assessment and Plan Assessment and plan: Left breast ca metastic to Axillary LNWho presented to the hospital chest wall pain around her Chemo-Port, complaining of neck discomfort and swelling also. Thinks she had low-grade fevers c.o pain and swelling around r chest chemoport and pain and swelling of neck -?infection?, SVC? syndrome? Vascular consult, ID consult, empiric abx, fup blood cx L breast ca on chemo Outpatient management pain contol Continue pain meds DVT prophylaxis With Lovenox History Interval history: no CP, sob or fever c/o of R chest wall pain around port c/o neck discomfort and swelling no vomiting, no fever Hospitalist Physical - Constitutional Vitals: Temp Pulse Resp BP Pulse Ox 100.2 F H 79 18 148/54 93 04/27/19 17:12 04/27/19 17:12 04/27/19 17:12 04/27/19 17:12 04/27/19 17:12 General appearance: Present: mild distress - EENT Eyes: Present: PERRL ENT: hearing intact - Neck Neck: Present: supple - Respiratory Respiratory effort: normal Respiratory: bilateral: CTA - Cardiovascular Rhythm: regular Heart Sounds: Present: S1 & S2 - Extremities Extremities: no ischemia - Abdominal General gastrointestinal: soft, non-tender - Integumentary Integumentary: Present: clear, warm - Psychiatric Psychiatric: appropriate mood/affect, memory intact - Neurologic Neurologic: CNII-XII intact, moves all extremities Results - Labs CBC & Chem 7: 04/27/19 08:22 04/27/19 08:22 Labs: Laboratory Last Values WBC 22.4 K/mm3 (4.5-11.0) H 04/27/19 08:22 RBC 2.92 M/mm3 (3.65-5.03) L 04/27/19 08:22 Hgb 9.5 gm/dl (10.1-14.3) L 04/27/19 08:22 Hct 27.7 % (30.3-42.9) L 04/27/19 08:22 MCV 95 fl (79-97) 04/27/19 08:22 MCH 33 pg (28-32) H 04/27/19 08:22 MCHC 35 % (30-34) H 04/27/19 08:22 RDW 13.2 % (13.2-15.2) 04/27/19 08:22 Plt Count 232 K/mm3 (140-440) 04/27/19 08:22 Add Manual Diff Complete 04/27/19 08:22 Total Counted 100 04/27/19 08:22 Seg Neutrophils % Instructional Systems Designer 04/27/19 08:22 Seg Neuts % (Manual) 93.0 % (40.0-70.0) H 04/27/19 08:22 Band Neutrophils % 3.0 % 04/27/19 08:22 Lymphocytes % (Manual) 4.0 % (13.4-35.0) L 04/27/19 08:22 Reactive Lymphs % (Man) 0 % 04/27/19 08:22 Monocytes % (Manual) 0 % (0.0-7.3) 04/27/19 08:22 Eosinophils % (Manual) 0 % (0.0-4.3) 04/27/19 08:22 Basophils % (Manual) 0 % (0.0-1.8) 04/27/19 08:22 Metamyelocytes % 0 % 04/27/19 08:22 Myelocytes % 0 % 04/27/19 08:22 Promyelocytes % 0 % 04/27/19 08:22 Blast Cells % 0 % 04/27/19 08:22 Nucleated RBC % Not Reportable 04/27/19 08:22 Seg Neutrophils # Man 20.8 K/mm3 (1.8-7.7) H 04/27/19 08:22 Band Neutrophils # 0.7 K/mm3 04/27/19 08:22 Lymphocytes # (Manual) 0.9 K/mm3 (1.2-5.4) L 04/27/19 08:22 Abs React Lymphs (Man) 0.0 K/mm3 04/27/19 08:22 Monocytes # (Manual) 0.0 K/mm3 (0.0-0.8) 04/27/19 08:22 Eosinophils # (Manual) 0.0 K/mm3 (0.0-0.4) 04/27/19 08:22 Basophils # (Manual) 0.0 K/mm3 (0.0-0.1) 04/27/19 08:22 Metamyelocytes # 0.0 K/mm3 04/27/19 08:22 Myelocytes # 0.0 K/mm3 04/27/19 08:22 Promyelocytes # 0.0 K/mm3 04/27/19 08:22 Blast Cells # 0.0 K/mm3 04/27/19 08:22 Pathologist Review 04/26/19 10:10 WBC Morphology Not Reportable 04/27/19 08:22 Hypersegmented Neuts Not Reportable 04/27/19 08:22 Hyposegmented Neuts Not Reportable 04/27/19 08:22 Hypogranular Neuts Not Reportable 04/27/19 08:22 Smudge Cells Not Reportable 04/27/19 08:22 Toxic Granulation Not Reportable 04/27/19 08:22 Toxic Vacuolation Not Reportable 04/27/19 08:22 Dohle Bodies 1+ 04/27/19 08:22 Pelger-Huet Anomaly Not Reportable 04/27/19 08:22 Tulio Rods Not Reportable 04/27/19 08:22 Platelet Estimate Consistent w auto 04/27/19 08:22 Clumped Platelets Not Reportable 04/27/19 08:22 Plt Clumps, EDTA Not Reportable 04/27/19 08:22 Large Platelets Not Reportable 04/27/19 08:22 Giant Platelets Not Reportable 04/27/19 08:22 Platelet Satelliting Not Reportable 04/27/19 08:22 Plt Morphology Comment Not Reportable 04/27/19 08:22 RBC Morphology Not Reportable 04/27/19 08:22 Dimorphic RBCs Not Reportable 04/27/19 08:22 Polychromasia Not Reportable 04/27/19 08:22 Hypochromasia Not Reportable 04/27/19 08:22 Poikilocytosis Not Reportable 04/27/19 08:22 Anisocytosis Not Reportable 04/27/19 08:22 Microcytosis Not Reportable 04/27/19 08:22 Macrocytosis Not Reportable 04/27/19 08:22 Spherocytes Not Reportable 04/27/19 08:22 Pappenheimer Bodies Not Reportable 04/27/19 08:22 Sickle Cells Not Reportable 04/27/19 08:22 Target Cells Not Reportable 04/27/19 08:22 Tear Drop Cells Not Reportable 04/27/19 08:22 Ovalocytes Not Reportable 04/27/19 08:22 Stomatocytes Few 04/27/19 08:22 Helmet Cells Not Reportable 04/27/19 08:22 [place] Bodies Not Reportable 04/27/19 08:22 [place] Rings Not Reportable 04/27/19 08:22 [place] Cells Not Reportable 04/27/19 08:22 Bite Cells Not Reportable 04/27/19 08:22 Crenated Cell Not Reportable 04/27/19 08:22 Elliptocytes Not Reportable 04/27/19 08:22 Acanthocytes (Spur) Not Reportable 04/27/19 08:22 Rouleaux Not Reportable 04/27/19 08:22 Hemoglobin C Crystals Not Reportable 04/27/19 08:22 Schistocytes Not Reportable 04/27/19 08:22 Malaria parasites Not Reportable 04/27/19 08:22 Bal[place]inder Bodies Not Reportable 04/27/19 08:22 Hem Pathologist Commnt No 04/27/19 08:22 PT 12.6 Sec. (12.2-14.9) 04/26/19 10:10 INR 0.97 (0.87-1.13) 04/26/19 10:10 APTT 23.1 Sec. (24.2-36.6) L 04/26/19 10:10 Sodium 137 mmol/L (137-145) 04/27/19 08:22 Potassium 4.5 mmol/L (3.6-5.0) 04/27/19 08:22 Chloride 104.9 mmol/L (98-107) 04/27/19 08:22 Carbon Dioxide 20 mmol/L (22-30) L 04/27/19 08:22 Anion Gap 17 mmol/L 04/27/19 08:22 BUN 15 mg/dL (7-17) 04/27/19 08:22 Creatinine 0.7 mg/dL (0.7-1.2) 04/27/19 08:22 Estimated GFR > 60 ml/min 04/27/19 08:22 BUN/Creatinine Ratio 21 % 04/27/19 08:22 Glucose 107 mg/dL (65-100) H 04/27/19 08:22 Calcium 8.1 mg/dL (8.4-10.2) L 04/27/19 08:22 Phosphorus 3.30 mg/dL (2.5-4.5) 04/27/19 08:22 Magnesium 1.90 mg/dL (1.7-2.3) 04/27/19 08:22 Total Bilirubin 0.20 mg/dL (0.1-1.2) 04/26/19 10:10 AST 10 units/L (5-40) 04/26/19 10:10 ALT 6 units/L (7-56) L 04/26/19 10:10 Alkaline Phosphatase 129 units/L (35-129) 04/26/19 10:10 Troponin T < 0.010 ng/mL (0.00-0.029) 04/26/19 20:38 Total Protein 7.3 g/dL (6.3-8.2) 04/26/19 10:10 Albumin 3.4 g/dL (3.9-5) L 04/26/19 10:10 Albumin/Globulin Ratio 0.9 % 04/26/19 10:10 Urine Color Yellow (Yellow) 04/26/19 11:38 Urine Turbidity Clear (Clear) 04/26/19 11:38 Urine pH 5.0 (5.0-7.0) 04/26/19 11:38 Ur Specific [place] 1.016 (1.003-1.030) 04/26/19 11:38 Urine Protein <15 mg/dl mg/dL (Negative) 04/26/19 11:38 Urine Glucose (UA) Neg mg/dL (Negative) 04/26/19 11:38 Urine Ketones Neg mg/dL (Negative) 04/26/19 11:38 Urine Blood Neg (Negative) 04/26/19 11:38 Urine Nitrite Neg (Negative) 04/26/19 11:38 Urine Bilirubin Neg (Negative) 04/26/19 11:38 Urine Urobilinogen < 2.0 mg/dL (<2.0) 04/26/19 11:38 Ur Leukocyte Esterase Neg (Negative) 04/26/19 11:38 Urine WBC (Auto) 1.0 /HPF (0.0-6.0) 04/26/19 11:38 Urine RBC (Auto) < 1.0 /HPF (0.0-6.0) 04/26/19 11:38 U Epithel Cells (Auto) < 1.0 /HPF (0-13.0) 04/26/19 11:38 Urine Opiates Screen Presumptive positive 04/26/19 11:38 Urine Methadone Screen Presumptive negative 04/26/19 11:38 Ur Barbiturates Screen Presumptive negative 04/26/19 11:38 Ur Phencyclidine Scrn Presumptive negative 04/26/19 11:38 Ur Amphetamines Screen Presumptive negative 04/26/19 11:38 U Benzodiazepines Scrn Presumptive negative 04/26/19 11:38 Urine Cocaine Screen Presumptive negative 04/26/19 11:38 U Marijuana (THC) Screen Presumptive negative 04/26/19 11:38 Drugs of Abuse Note Disclamer 04/26/19 11:38 Active Medications - Current Medications Current Medications: Generic Name Dose Route Start Last Admin Trade Name Freq PRN Reason Stop Dose Admin Acetaminophen 650 mg 04/26/19 14:37 04/27/19 16:39 Tylenol PO 650 mg Q4H PRN Administration Pain MILD(1-3)/Fever >100.5/BARONE Acetaminophen/Hydrocodone Bitart 1 each 04/27/19 10:07 [place] 10/325 PO Q6H PRN Pain, Moderate (4-6) Albuterol 2.5 mg 04/26/19 14:37 Proventil IH Q4HRT PRN Shortness Of Breath Enoxaparin Sodium 40 mg 04/27/19 10:00 04/27/19 10:46 Lovenox SUB-Q 40 mg QDAY@1000 [place] Administration Hydromorphone HCl 1 mg 04/27/19 10:07 04/27/19 16:28 Dilaudid IV 1 mg Q4H PRN Administration Pain , Severe (7-10) Vancomycin HCl 1 gm in 250 mls @ 125 mls/hr 04/27/19 10:00 04/27/19 10:35 Vancomycin/Ns 1 Gm/250 Ml IV 125 mls/hr Q12HR [place] Administration Protocol Ondansetron HCl 4 mg 04/26/19 14:37 04/27/19 16:28 Zofran IV 4 mg Q8H PRN Administration Nausea And Vomiting Pantoprazole Sodium 40 mg 04/27/19 10:00 04/27/19 10:46 Protonix PO 40 mg DAILY [place] Administration Promethazine HCl 25 mg 04/26/19 14:39 Phenergan PO Q6HR PRN Nausea Sodium Chloride 10 ml 04/26/19 22:00 04/27/19 10:36 Sodium Chloride Flush Syringe 10 Ml IV 10 ml BID [place] Administration Sodium Chloride 10 ml 04/26/19 14:37 04/26/19 21:08 Sodium Chloride Flush Syringe 10 Ml IV 10 ml PRN PRN Administration LINE FLUSH Sodium Chloride 10 ml 04/26/19 14:37 04/27/19 06:43 Sodium Chloride Flush Syringe 10 Ml IV 10 ml PRN PRN Administration LINE FLUSH Sodium Chloride 500 ml 04/26/19 19:45 Nacl 0.9% IV DIRECT [place]
--- NOTE | 2019-04-28 00:44 | Consultation ---
REFERRING PHYSICIAN: Dr. Diaz. REASON FOR CONSULTATION: Leukocytosis, history of left breast cancer. HISTORY OF PRESENT ILLNESS: I saw the patient, a 58-year-old female with a diagnosis of left breast cancer, on neoadjuvant chemotherapy, Adriamycin based. She received cycle 2 of same recently and post that she received the long-acting growth factor Onpro. She had generalized body ache and she called her primary doctor's office who advised her to go to hospital. There she was found to have leukocytosis. I have been asked to evaluate the patient for this. At this time no headache, no visual disturbances. No ear discharge, generalized body ache present. No vomiting, no diarrhea, no fevers, no shortness of breath, no cough, no hemoptysis. No seizure, syncope or loss of consciousness. The patient has poor vision. PAST MEDICAL HISTORY: Poor vision, left breast cancer, on neoadjuvant chemotherapy. The patient says is clinically stage 3. History of arthritis, GERD, hyperlipidemia. Her oncologist, Dr. Viveros. PAST SURGICAL HISTORY: Tonsillectomy. SOCIAL HISTORY: Single. History of smoking present. FAMILY HISTORY: Hypertension. ALLERGIES: TO KIWI, SHELLFISH, SHRIMP, SULFA. HOME MEDICATIONS: Omeprazole and Phenergan. PHYSICAL EXAMINATION: VITAL SIGNS: Temperature was 101, pulse 71, respirations 18, BP 96/53. HEENT: No pallor, no icterus. NECK: No neck lymph nodes. HEART: S1, S2. LUNGS: Clear to auscultation. ABDOMEN: Soft. Right side port present. EXTREMITIES: No calf tenderness. NEUROLOGIC: Alert, awake, oriented. Poor vision. LABORATORY DATA: White cell 53, hemoglobin 10, MCV 96, platelet 312. Potassium 4.4, creatinine 0.8, calcium 8.4. RADIOLOGY: CT chest was done, no PE, multiple small lymph nodes in the upper mesentery, upper retroperitoneum and angie hepatis. ASSESSMENT AND PLAN: 1. Left breast cancer. As per the patient, stage 3A, follows Dr. Viveros. The patient on Adriamycin based chemotherapy. She received cycle 2 and then on Neulasta. The white cell count is high likely secondary to Neulasta. Body ache and low-grade fever may also be because of Neulasta. 2. Port present, right side. 3. Lymphadenopathy in abdomen. 4. At this time, we will follow the patient during inpatient stay. We will see the trend of white cell count. Predominant neutrophil is consistent with the GCSF effect. JOB# [id number] SAI/DURGA
[2019-04-28] MEDS: HYDROmorphone 1 MG/1 ML INJ IV PRN ×3 (05:30→16:08)
[2019-04-28] MEDS: ONDANSETRON 4 MG/2 ML INJ IV PRN ×2 (05:30→09:49)
[2019-04-28] MEDS: VANCOMYCIN/NS 1 GM/250 ML 1 GM/250 ML BAG IV SCH ×2 (09:47→22:15)
[2019-04-28] MEDS: ENOXAPARIN 40 MG/0.4 ML INJ SUB-Q SCH (09:48)
[2019-04-28] MEDS: PANTOPRAZOLE 40 MG TAB PO SCH (09:48)
--- NOTE | 2019-04-28 10:23 | Progress Note ---
Assessment and Plan Assessment and plan: Left breast ca metastic to Axillary LNWho presented to the hospital chest wall pain around her Chemo-Port, complaining of neck discomfort and swelling also. Thinks she had low-grade fevers c.o pain and swelling around r chest chemoport and pain and swelling of neck -?infection?, SVC? syndrome? Vascular consult appreciated, no evidence of clot or svc syndrome , ID consult appreciated, empiric abx, fup blood cx L breast ca on chemo Outpatient management pain contol Continue pain meds DVT prophylaxis With Lovenox History Interval history: no CP, sob or fever c/o of R chest wall pain around port c/o neck discomfort and swelling no vomiting, no fever Hospitalist Physical - Physical exam Narrative exam: General appearance: Present: mild distress - EENT Eyes: Present: PERRL ENT: hearing intact - Neck Neck: Present: supple - Respiratory Respiratory effort: normal Respiratory: bilateral: CTA - Cardiovascular Rhythm: regular Heart Sounds: Present: S1 & S2 - Extremities Extremities: no ischemia - Abdominal General gastrointestinal: soft, non-tender - Integumentary Integumentary: Present: clear, warm - Psychiatric Psychiatric: appropriate mood/affect, memory intact - Neurologic Neurologic: CNII-XII intact, moves all extremities - Constitutional Vitals: Temp Pulse Resp BP Pulse Ox 99.1 F 77 22 127/51 97 04/28/19 04:38 04/28/19 04:38 04/28/19 04:38 04/28/19 04:38 04/28/19 04:38 General appearance: Present: mild distress Results - Labs CBC & Chem 7: 04/27/19 08:22 04/27/19 08:22 Labs: Laboratory Last Values WBC 22.4 K/mm3 (4.5-11.0) H 04/27/19 08:22 RBC 2.92 M/mm3 (3.65-5.03) L 04/27/19 08:22 Hgb 9.5 gm/dl (10.1-14.3) L 04/27/19 08:22 Hct 27.7 % (30.3-42.9) L 04/27/19 08:22 MCV 95 fl (79-97) 04/27/19 08:22 MCH 33 pg (28-32) H 04/27/19 08:22 MCHC 35 % (30-34) H 04/27/19 08:22 RDW 13.2 % (13.2-15.2) 04/27/19 08:22 Plt Count 232 K/mm3 (140-440) 04/27/19 08:22 Add Manual Diff Complete 04/27/19 08:22 Total Counted 100 04/27/19 08:22 Seg Neutrophils % Fine Grade Operator 04/27/19 08:22 Seg Neuts % (Manual) 93.0 % (40.0-70.0) H 04/27/19 08:22 Band Neutrophils % 3.0 % 04/27/19 08:22 Lymphocytes % (Manual) 4.0 % (13.4-35.0) L 04/27/19 08:22 Reactive Lymphs % (Man) 0 % 04/27/19 08:22 Monocytes % (Manual) 0 % (0.0-7.3) 04/27/19 08:22 Eosinophils % (Manual) 0 % (0.0-4.3) 04/27/19 08:22 Basophils % (Manual) 0 % (0.0-1.8) 04/27/19 08:22 Metamyelocytes % 0 % 04/27/19 08:22 Myelocytes % 0 % 04/27/19 08:22 Promyelocytes % 0 % 04/27/19 08:22 Blast Cells % 0 % 04/27/19 08:22 Nucleated RBC % Not Reportable 04/27/19 08:22 Seg Neutrophils # Man 20.8 K/mm3 (1.8-7.7) H 04/27/19 08:22 Band Neutrophils # 0.7 K/mm3 04/27/19 08:22 Lymphocytes # (Manual) 0.9 K/mm3 (1.2-5.4) L 04/27/19 08:22 Abs React Lymphs (Man) 0.0 K/mm3 04/27/19 08:22 Monocytes # (Manual) 0.0 K/mm3 (0.0-0.8) 04/27/19 08:22 Eosinophils # (Manual) 0.0 K/mm3 (0.0-0.4) 04/27/19 08:22 Basophils # (Manual) 0.0 K/mm3 (0.0-0.1) 04/27/19 08:22 Metamyelocytes # 0.0 K/mm3 04/27/19 08:22 Myelocytes # 0.0 K/mm3 04/27/19 08:22 Promyelocytes # 0.0 K/mm3 04/27/19 08:22 Blast Cells # 0.0 K/mm3 04/27/19 08:22 Pathologist Review 04/26/19 10:10 WBC Morphology Not Reportable 04/27/19 08:22 Hypersegmented Neuts Not Reportable 04/27/19 08:22 Hyposegmented Neuts Not Reportable 04/27/19 08:22 Hypogranular Neuts Not Reportable 04/27/19 08:22 Smudge Cells Not Reportable 04/27/19 08:22 Toxic Granulation Not Reportable 04/27/19 08:22 Toxic Vacuolation Not Reportable 04/27/19 08:22 Dohle Bodies 1+ 04/27/19 08:22 Pelger-Huet Anomaly Not Reportable 04/27/19 08:22 Tulio Rods Not Reportable 04/27/19 08:22 Platelet Estimate Consistent w auto 04/27/19 08:22 Clumped Platelets Not Reportable 04/27/19 08:22 Plt Clumps, EDTA Not Reportable 04/27/19 08:22 Large Platelets Not Reportable 04/27/19 08:22 Giant Platelets Not Reportable 04/27/19 08:22 Platelet Satelliting Not Reportable 04/27/19 08:22 Plt Morphology Comment Not Reportable 04/27/19 08:22 RBC Morphology Not Reportable 04/27/19 08:22 Dimorphic RBCs Not Reportable 04/27/19 08:22 Polychromasia Not Reportable 04/27/19 08:22 Hypochromasia Not Reportable 04/27/19 08:22 Poikilocytosis Not Reportable 04/27/19 08:22 Anisocytosis Not Reportable 04/27/19 08:22 Microcytosis Not Reportable 04/27/19 08:22 Macrocytosis Not Reportable 04/27/19 08:22 Spherocytes Not Reportable 04/27/19 08:22 Pappenheimer Bodies Not Reportable 04/27/19 08:22 Sickle Cells Not Reportable 04/27/19 08:22 Target Cells Not Reportable 04/27/19 08:22 Tear Drop Cells Not Reportable 04/27/19 08:22 Ovalocytes Not Reportable 04/27/19 08:22 Stomatocytes Few 04/27/19 08:22 Helmet Cells Not Reportable 04/27/19 08:22 Timmons-Star Bodies Not Reportable 04/27/19 08:22 Orondo Rings Not Reportable 04/27/19 08:22 Lesia Cells Not Reportable 04/27/19 08:22 Bite Cells Not Reportable 04/27/19 08:22 Crenated Cell Not Reportable 04/27/19 08:22 Elliptocytes Not Reportable 04/27/19 08:22 Acanthocytes (Spur) Not Reportable 04/27/19 08:22 Rouleaux Not Reportable 04/27/19 08:22 Hemoglobin C Crystals Not Reportable 04/27/19 08:22 Schistocytes Not Reportable 04/27/19 08:22 Malaria parasites Not Reportable 04/27/19 08:22 Balwinder Bodies Not Reportable 04/27/19 08:22 Hem Pathologist Commnt No 04/27/19 08:22 PT 12.6 Sec. (12.2-14.9) 04/26/19 10:10 INR 0.97 (0.87-1.13) 04/26/19 10:10 APTT 23.1 Sec. (24.2-36.6) L 04/26/19 10:10 Sodium 137 mmol/L (137-145) 04/27/19 08:22 Potassium 4.5 mmol/L (3.6-5.0) 04/27/19 08:22 Chloride 104.9 mmol/L (98-107) 04/27/19 08:22 Carbon Dioxide 20 mmol/L (22-30) L 04/27/19 08:22 Anion Gap 17 mmol/L 04/27/19 08:22 BUN 15 mg/dL (7-17) 04/27/19 08:22 Creatinine 0.7 mg/dL (0.7-1.2) 04/27/19 08:22 Estimated GFR > 60 ml/min 04/27/19 08:22 BUN/Creatinine Ratio 21 % 04/27/19 08:22 Glucose 107 mg/dL (65-100) H 04/27/19 08:22 Calcium 8.1 mg/dL (8.4-10.2) L 04/27/19 08:22 Phosphorus 3.30 mg/dL (2.5-4.5) 04/27/19 08:22 Magnesium 1.90 mg/dL (1.7-2.3) 04/27/19 08:22 Total Bilirubin 0.20 mg/dL (0.1-1.2) 04/26/19 10:10 AST 10 units/L (5-40) 04/26/19 10:10 ALT 6 units/L (7-56) L 04/26/19 10:10 Alkaline Phosphatase 129 units/L (35-129) 04/26/19 10:10 Troponin T < 0.010 ng/mL (0.00-0.029) 04/26/19 20:38 Total Protein 7.3 g/dL (6.3-8.2) 04/26/19 10:10 Albumin 3.4 g/dL (3.9-5) L 04/26/19 10:10 Albumin/Globulin Ratio 0.9 % 04/26/19 10:10 Urine Color Yellow (Yellow) 04/26/19 11:38 Urine Turbidity Clear (Clear) 04/26/19 11:38 Urine pH 5.0 (5.0-7.0) 04/26/19 11:38 Ur Specific [place] 1.016 (1.003-1.030) 04/26/19 11:38 Urine Protein <15 mg/dl mg/dL (Negative) 04/26/19 11:38 Urine Glucose (UA) Neg mg/dL (Negative) 04/26/19 11:38 Urine Ketones Neg mg/dL (Negative) 04/26/19 11:38 Urine Blood Neg (Negative) 04/26/19 11:38 Urine Nitrite Neg (Negative) 04/26/19 11:38 Urine Bilirubin Neg (Negative) 04/26/19 11:38 Urine Urobilinogen < 2.0 mg/dL (<2.0) 04/26/19 11:38 Ur Leukocyte Esterase Neg (Negative) 04/26/19 11:38 Urine WBC (Auto) 1.0 /HPF (0.0-6.0) 04/26/19 11:38 Urine RBC (Auto) < 1.0 /HPF (0.0-6.0) 04/26/19 11:38 U Epithel Cells (Auto) < 1.0 /HPF (0-13.0) 04/26/19 11:38 Urine Opiates Screen Presumptive positive 04/26/19 11:38 Urine Methadone Screen Presumptive negative 04/26/19 11:38 Ur Barbiturates Screen Presumptive negative 04/26/19 11:38 Ur Phencyclidine Scrn Presumptive negative 04/26/19 11:38 Ur Amphetamines Screen Presumptive negative 04/26/19 11:38 U Benzodiazepines Scrn Presumptive negative 04/26/19 11:38 Urine Cocaine Screen Presumptive negative 04/26/19 11:38 U Marijuana (THC) Screen Presumptive negative 04/26/19 11:38 Drugs of Abuse Note Disclamer 04/26/19 11:38 Active Medications - Current Medications Current Medications: Generic Name Dose Route Start Last Admin Trade Name Freq PRN Reason Stop Dose Admin Acetaminophen 650 mg 04/26/19 14:37 04/27/19 16:39 Tylenol PO 650 mg Q4H PRN Administration Pain MILD(1-3)/Fever >100.5/BARONE Acetaminophen/Hydrocodone Bitart 1 each 04/27/19 10:07 [place] 10/325 PO Q6H PRN Pain, Moderate (4-6) Albuterol 2.5 mg 04/26/19 14:37 04/27/19 23:25 Proventil IH 2.5 mg Q4HRT PRN Administration Shortness Of Breath Enoxaparin Sodium 40 mg 04/27/19 10:00 04/28/19 09:48 Lovenox SUB-Q 40 mg QDAY@1000 [place] Administration Hydromorphone HCl 1 mg 04/27/19 10:07 04/28/19 09:48 Dilaudid IV 1 mg Q4H PRN Administration Pain , Severe (7-10) Vancomycin HCl 1 gm in 250 mls @ 125 mls/hr 04/27/19 10:00 04/28/19 09:47 Vancomycin/Ns 1 Gm/250 Ml IV 125 mls/hr Q12HR [place] Administration Protocol Metoclopramide HCl 10 mg 04/27/19 23:07 Reglan IV Q6H PRN Nausea And Vomiting Ondansetron HCl 4 mg 04/27/19 23:07 04/28/19 09:49 Zofran IV 4 mg Q4H PRN Administration Nausea And Vomiting Pantoprazole Sodium 40 mg 04/27/19 10:00 04/28/19 09:48 Protonix PO 40 mg DAILY [place] Administration Promethazine HCl 25 mg 04/26/19 14:39 Phenergan PO Q6HR PRN Nausea Sodium Chloride 10 ml 04/26/19 22:00 04/28/19 09:49 Sodium Chloride Flush Syringe 10 Ml IV 10 ml BID [place] Administration Sodium Chloride 10 ml 04/26/19 14:37 04/26/19 21:08 Sodium Chloride Flush Syringe 10 Ml IV 10 ml PRN PRN Administration LINE FLUSH Sodium Chloride 10 ml 04/26/19 14:37 04/28/19 05:31 Sodium Chloride Flush Syringe 10 Ml IV 10 ml PRN PRN Administration LINE FLUSH Sodium Chloride 500 ml 04/26/19 19:45 Nacl 0.9% IV DIRECT [place]
[2019-04-28] MEDS: HYDROcodone/ACETAMINOPHEN 10-325MG TAB PO PRN ×2 (12:59→21:12)
--- NOTE | 2019-04-28 13:53 | Hem/Onc Progress Note ---
Assessment and Plan 1. Left breast cancer. As per the patient, stage 3A, follows Dr. Viveros. The patient on Adriamycin based chemotherapy. She received cycle 2 and then on Neulasta. The white cell count is high likely secondary to Neulasta. Body ache and low-grade fever may also be because of Neulasta. 2. Port present, right side. 3. Lymphadenopathy in abdomen. 4. At this time, we will follow the patient during inpatient stay. We will see the trend of white cell count. Predominant neutrophil is consistent with the GCSF effect. OP follow up - once stable - wbc better - Patient Problems (1) Breast cancer Current Visit: Yes Status: Acute Qualifiers: Laterality: left Subjective Date of service: 04/28/19 Principal diagnosis: breast ca - left - on chemo Interval history: feeling better pain rt chest - port - since port placement Objective - Exam Narrative Exam: Pain - chest/port area for > 1 month General appearance - awake - poor vision Performance status limited self care Eyes - no icterus ENT - no bleeding LNs cervical not palpable Neck - no LN Respiratory Normal Breath sounds - CTA anteriorly CVS S1 S2 + Extremities no calf tenderness General GI Soft Rectal deferred male - deferred Skin warm - rt port Musculoskeletal moving extremitites Neurologically awake - Constitutional Vitals: Last Vital Signs Temp 98.9 F 04/28/19 11:54 Pulse 62 04/28/19 11:54 Resp 22 04/28/19 11:54 BP 125/49 04/28/19 11:54 Pulse Ox 94 04/28/19 11:54 Medications & Allergies - Medications Allergies/Adverse Reactions: Allergies kiwi Allergy (Verified 04/26/19 10:02) Hives shellfish derived Allergy (Verified 04/26/19 10:02) Hives shrimp Allergy (Verified 04/26/19 10:02) Hives Sulfa (Sulfonamide Antibiotics) Allergy (Verified 04/26/19 10:02) Rash Home Medications: Home Medications Medication Instructions Recorded Confirmed Last Taken Type Promethazine [Phenergan] 25 mg PO Q6HR PRN 04/05/19 04/26/19 Unknown History Omeprazole 40 mg PO DAILY 04/26/19 04/26/19 Unknown History Active Medications: Generic Name Dose Route Start Last Admin Trade Name Freq PRN Reason Stop Dose Admin Acetaminophen 650 mg 04/26/19 14:37 04/27/19 16:39 Tylenol PO 650 mg Q4H PRN Administration Pain MILD(1-3)/Fever >100.5/BARONE Acetaminophen/Hydrocodone Bitart 1 each 04/27/19 10:07 04/28/19 12:59 [place] 10/325 PO 1 each Q6H PRN Administration Pain, Moderate (4-6) Albuterol 2.5 mg 04/26/19 14:37 04/27/19 23:25 Proventil IH 2.5 mg Q4HRT PRN Administration Shortness Of Breath Enoxaparin Sodium 40 mg 04/27/19 10:00 04/28/19 09:48 Lovenox SUB-Q 40 mg QDAY@1000 [place] Administration Hydromorphone HCl 1 mg 04/27/19 10:07 04/28/19 09:48 Dilaudid IV 1 mg Q4H PRN Administration Pain , Severe (7-10) Vancomycin HCl 1 gm in 250 mls @ 125 mls/hr 04/27/19 10:00 04/28/19 09:47 Vancomycin/Ns 1 Gm/250 Ml IV 125 mls/hr Q12HR [place] Administration Protocol Metoclopramide HCl 10 mg 04/27/19 23:07 Reglan IV Q6H PRN Nausea And Vomiting Ondansetron HCl 4 mg 04/27/19 23:07 04/28/19 09:49 Zofran IV 4 mg Q4H PRN Administration Nausea And Vomiting Pantoprazole Sodium 40 mg 04/27/19 10:00 04/28/19 09:48 Protonix PO 40 mg DAILY [place] Administration Promethazine HCl 25 mg 04/26/19 14:39 Phenergan PO Q6HR PRN Nausea Sodium Chloride 10 ml 04/26/19 22:00 04/28/19 09:49 Sodium Chloride Flush Syringe 10 Ml IV 10 ml BID [place] Administration Sodium Chloride 10 ml 04/26/19 14:37 04/26/19 21:08 Sodium Chloride Flush Syringe 10 Ml IV 10 ml PRN PRN Administration LINE FLUSH Sodium Chloride 10 ml 04/26/19 14:37 04/28/19 05:31 Sodium Chloride Flush Syringe 10 Ml IV 10 ml PRN PRN Administration LINE FLUSH Sodium Chloride 500 ml 04/26/19 19:45 Nacl 0.9% IV DIRECT [place]
[2019-04-28] MEDS: METOCLOPRAMIDE 10 MG/2 ML INJ IV PRN (16:07)
[2019-04-29] MEDS: HYDROmorphone 1 MG/1 ML INJ IV PRN ×4 (00:15→19:54)
[2019-04-29] MEDS: ONDANSETRON 4 MG/2 ML INJ IV PRN ×2 (07:54→23:32)
[2019-04-29] MEDS: ENOXAPARIN 40 MG/0.4 ML INJ SUB-Q SCH (10:13)
[2019-04-29] MEDS: PANTOPRAZOLE 40 MG TAB PO SCH (10:13)
[2019-04-29] MEDS: HYDROcodone/ACETAMINOPHEN 10-325MG TAB PO PRN (10:18)
--- NOTE | 2019-04-29 10:23 | Discharge Summary ---
Providers - Providers Date of Admission: 04/26/19 14:37 Attending physician: CHAVEZ NICOLE MD 04/26/19 Consult to Cardiac Rehabilitation [CONS] Routine Reason For Exam: Phase I 04/26/19 14:46 Consult to Physician [CONS] Routine Comment: called office/ [place] Consulting Provider: SEB BOWEN Physician Instructions: Reason For Exam: breast cancer/lukemia 04/27/19 01:25 Consult to Wound/ET Nurse [CONS] Routine Reason For Exam: wound eval 04/27/19 10:00 Consult to Physician [CONS] Routine Comment: Consulting Provider: ASHLEY MONSIVAIS Physician Instructions: Reason For Exam: Infected port 04/27/19 10:06 Consult to Physician [CONS] Routine Comment: Consulting Provider: JOYCE SAMUELS Physician Instructions: Reason For Exam: pain and swelling with Port, SVC syndrome? Primary care physician: TRANSFORMER MECHANIC Hospitalization Condition: Stable Hospital course: Left breast ca metastic to Axillary LN Who presented to the hospital chest wall pain around her Chemo-Port, complaining of neck discomfort and swelling also. Thinks she had low-grade fevers c.o pain and swelling around r chest chemoport and pain and swelling of neck -chest wall cellulitis Vascular consult appreciated, no evidence of clot or svc syndrome , ID consult appreciated, empiric abx, blood cultures were negative. Patient was discharged on oral antibiotics Leukocytosis was likely due to Neulasta. It resolved Patient had leukopenia upon discharge. Medication was sent to her phlebotomy support tech so that she has the blood work within the next few days after discharge. L breast ca on chemo Outpatient management pain contol Continue pain meds DVT prophylaxis With Lovenox Disposition: TO HOME OR SELFCARE Time spent for discharge: 33 mins Core Measure Documentation - Palliative Care Palliative Care/ Comfort Measures: Not Applicable - Core Measures Any of the following diagnoses?: none Exam - Physical Exam Narrative exam: General appearance: Present: mild distress - EENT Eyes: Present: PERRL ENT: hearing intact - Neck Neck: Present: supple - Respiratory Respiratory effort: normal Respiratory: bilateral: CTA Ulcerated mass of left breast - Cardiovascular Rhythm: regular Heart Sounds: Present: S1 & S2 - Extremities Extremities: no ischemia - Abdominal General gastrointestinal: soft, non-tender - Integumentary Integumentary: Present: clear, warm - Psychiatric Psychiatric: appropriate mood/affect, memory intact - Neurologic Neurologic: CNII-XII intact, moves all extremities - Constitutional Vitals: Temp Pulse Resp BP Pulse Ox 98.9 F 61 20 116/48 96 04/29/19 05:47 04/29/19 05:47 04/29/19 07:54 04/29/19 05:47 04/29/19 05:47 Plan Follow up with: KEVIN VICKERS MD [Staff Physician] - 7 Days PRIMARY CARE, [Primary Care Provider] - 3-5 Days Prescriptions: Nystas/Diphen/Xyl Visc/Mylanta [Magic Mouthwash] 15 ml PO TID #1 bottle Polyethylene Glycol 3350 [Miralax 3350] 17 gm PO BID PRN #60 powd.pack PRN Reason: Constipation Sennosides/Docusate [Senokot S] 2 tab PO Q12H PRN #60 tablet PRN Reason: Laxative Effect DOXYCYCLINE Hyclate [Vibramycin CAP] 100 mg PO Q12HR #14 capsule
--- NOTE | 2019-04-29 10:26 | Progress Note ---
Assessment and Plan Assessment and plan: Left breast ca metastic to Axillary LNWho presented to the hospital chest wall pain around her Chemo-Port, complaining of neck discomfort and swelling also. Thinks she had low-grade fevers SIRS c.o pain and swelling around r chest chemoport and pain and swelling of neck -?infection?, Vascular consult appreciated, no issues with port, no evidence of clot or svc syndrome, ID consult, empiric abx, fup blood cx echo shows MV mass, ?vegetation, obtain YOUSUF Leukocystosis most likely due to neulasta - L breast ca on chemo Outpatient management w Dr Viveros pain control Continue pain meds DVT prophylaxis With Lovenox History Interval history: no CP, sob or fever c/o of R chest wall pain around port c/o neck discomfort and swelling no vomiting, no fever Hospitalist Physical - Physical exam Narrative exam: General appearance: Present: mild distress - EENT Eyes: Present: PERRL ENT: hearing intact - Neck Neck: Present: supple - Respiratory Respiratory effort: normal Respiratory: bilateral: CTA Ulcerated mass of left breast - Cardiovascular Rhythm: regular Heart Sounds: Present: S1 & S2 - Extremities Extremities: no ischemia - Abdominal General gastrointestinal: soft, non-tender - Integumentary Integumentary: Present: clear, warm - Psychiatric Psychiatric: appropriate mood/affect, memory intact - Neurologic Neurologic: CNII-XII intact, moves all extremities - Constitutional Vitals: Temp Pulse Resp BP Pulse Ox 98.9 F 61 20 116/48 96 04/29/19 05:47 04/29/19 05:47 04/29/19 07:54 04/29/19 05:47 04/29/19 05:47 General appearance: Present: mild distress Results - Labs CBC & Chem 7: 04/27/19 08:22 04/27/19 08:22 Labs: Laboratory Last Values WBC 22.4 K/mm3 (4.5-11.0) H 04/27/19 08:22 RBC 2.92 M/mm3 (3.65-5.03) L 04/27/19 08:22 Hgb 9.5 gm/dl (10.1-14.3) L 04/27/19 08:22 Hct 27.7 % (30.3-42.9) L 04/27/19 08:22 MCV 95 fl (79-97) 04/27/19 08:22 MCH 33 pg (28-32) H 04/27/19 08:22 MCHC 35 % (30-34) H 04/27/19 08:22 RDW 13.2 % (13.2-15.2) 04/27/19 08:22 Plt Count 232 K/mm3 (140-440) 04/27/19 08:22 Add Manual Diff Complete 04/27/19 08:22 Total Counted 100 04/27/19 08:22 Seg Neutrophils % Material Control Manager 04/27/19 08:22 Seg Neuts % (Manual) 93.0 % (40.0-70.0) H 04/27/19 08:22 Band Neutrophils % 3.0 % 04/27/19 08:22 Lymphocytes % (Manual) 4.0 % (13.4-35.0) L 04/27/19 08:22 Reactive Lymphs % (Man) 0 % 04/27/19 08:22 Monocytes % (Manual) 0 % (0.0-7.3) 04/27/19 08:22 Eosinophils % (Manual) 0 % (0.0-4.3) 04/27/19 08:22 Basophils % (Manual) 0 % (0.0-1.8) 04/27/19 08:22 Metamyelocytes % 0 % 04/27/19 08:22 Myelocytes % 0 % 04/27/19 08:22 Promyelocytes % 0 % 04/27/19 08:22 Blast Cells % 0 % 04/27/19 08:22 Nucleated RBC % Not Reportable 04/27/19 08:22 Seg Neutrophils # Man 20.8 K/mm3 (1.8-7.7) H 04/27/19 08:22 Band Neutrophils # 0.7 K/mm3 04/27/19 08:22 Lymphocytes # (Manual) 0.9 K/mm3 (1.2-5.4) L 04/27/19 08:22 Abs React Lymphs (Man) 0.0 K/mm3 04/27/19 08:22 Monocytes # (Manual) 0.0 K/mm3 (0.0-0.8) 04/27/19 08:22 Eosinophils # (Manual) 0.0 K/mm3 (0.0-0.4) 04/27/19 08:22 Basophils # (Manual) 0.0 K/mm3 (0.0-0.1) 04/27/19 08:22 Metamyelocytes # 0.0 K/mm3 04/27/19 08:22 Myelocytes # 0.0 K/mm3 04/27/19 08:22 Promyelocytes # 0.0 K/mm3 04/27/19 08:22 Blast Cells # 0.0 K/mm3 04/27/19 08:22 Pathologist Review 04/26/19 10:10 WBC Morphology Not Reportable 04/27/19 08:22 Hypersegmented Neuts Not Reportable 04/27/19 08:22 Hyposegmented Neuts Not Reportable 04/27/19 08:22 Hypogranular Neuts Not Reportable 04/27/19 08:22 Smudge Cells Not Reportable 04/27/19 08:22 Toxic Granulation Not Reportable 04/27/19 08:22 Toxic Vacuolation Not Reportable 04/27/19 08:22 Dohle Bodies 1+ 04/27/19 08:22 Pelger-Huet Anomaly Not Reportable 04/27/19 08:22 Tulio Rods Not Reportable 04/27/19 08:22 Platelet Estimate Consistent w auto 04/27/19 08:22 Clumped Platelets Not Reportable 04/27/19 08:22 Plt Clumps, EDTA Not Reportable 04/27/19 08:22 Large Platelets Not Reportable 04/27/19 08:22 Giant Platelets Not Reportable 04/27/19 08:22 Platelet Satelliting Not Reportable 04/27/19 08:22 Plt Morphology Comment Not Reportable 04/27/19 08:22 RBC Morphology Not Reportable 04/27/19 08:22 Dimorphic RBCs Not Reportable 04/27/19 08:22 Polychromasia Not Reportable 04/27/19 08:22 Hypochromasia Not Reportable 04/27/19 08:22 Poikilocytosis Not Reportable 04/27/19 08:22 Anisocytosis Not Reportable 04/27/19 08:22 Microcytosis Not Reportable 04/27/19 08:22 Macrocytosis Not Reportable 04/27/19 08:22 Spherocytes Not Reportable 04/27/19 08:22 Pappenheimer Bodies Not Reportable 04/27/19 08:22 Sickle Cells Not Reportable 04/27/19 08:22 Target Cells Not Reportable 04/27/19 08:22 Tear Drop Cells Not Reportable 04/27/19 08:22 Ovalocytes Not Reportable 04/27/19 08:22 Stomatocytes Few 04/27/19 08:22 Helmet Cells Not Reportable 04/27/19 08:22 [place] Bodies Not Reportable 04/27/19 08:22 [place]uddy Rings Not Reportable 04/27/19 08:22 Lesia Cells Not Reportable 04/27/19 08:22 Bite Cells Not Reportable 04/27/19 08:22 Crenated Cell Not Reportable 04/27/19 08:22 Elliptocytes Not Reportable 04/27/19 08:22 Acanthocytes (Spur) Not Reportable 04/27/19 08:22 Rouleaux Not Reportable 04/27/19 08:22 Hemoglobin C Crystals Not Reportable 04/27/19 08:22 Schistocytes Not Reportable 04/27/19 08:22 Malaria parasites Not Reportable 04/27/19 08:22 Balwinder Bodies Not Reportable 04/27/19 08:22 Hem Pathologist Commnt No 04/27/19 08:22 PT 12.6 Sec. (12.2-14.9) 04/26/19 10:10 INR 0.97 (0.87-1.13) 04/26/19 10:10 APTT 23.1 Sec. (24.2-36.6) L 04/26/19 10:10 Sodium 137 mmol/L (137-145) 04/27/19 08:22 Potassium 4.5 mmol/L (3.6-5.0) 04/27/19 08:22 Chloride 104.9 mmol/L (98-107) 04/27/19 08:22 Carbon Dioxide 20 mmol/L (22-30) L 04/27/19 08:22 Anion Gap 17 mmol/L 04/27/19 08:22 BUN 15 mg/dL (7-17) 04/27/19 08:22 Creatinine 0.7 mg/dL (0.7-1.2) 04/27/19 08:22 Estimated GFR > 60 ml/min 04/27/19 08:22 BUN/Creatinine Ratio 21 % 04/27/19 08:22 Glucose 107 mg/dL (65-100) H 04/27/19 08:22 Calcium 8.1 mg/dL (8.4-10.2) L 04/27/19 08:22 Phosphorus 3.30 mg/dL (2.5-4.5) 04/27/19 08:22 Magnesium 1.90 mg/dL (1.7-2.3) 04/27/19 08:22 Total Bilirubin 0.20 mg/dL (0.1-1.2) 04/26/19 10:10 AST 10 units/L (5-40) 04/26/19 10:10 ALT 6 units/L (7-56) L 04/26/19 10:10 Alkaline Phosphatase 129 units/L (35-129) 04/26/19 10:10 Troponin T < 0.010 ng/mL (0.00-0.029) 04/26/19 20:38 Total Protein 7.3 g/dL (6.3-8.2) 04/26/19 10:10 Albumin 3.4 g/dL (3.9-5) L 04/26/19 10:10 Albumin/Globulin Ratio 0.9 % 04/26/19 10:10 Urine Color Yellow (Yellow) 04/26/19 11:38 Urine Turbidity Clear (Clear) 04/26/19 11:38 Urine pH 5.0 (5.0-7.0) 04/26/19 11:38 Ur Specific [place] 1.016 (1.003-1.030) 04/26/19 11:38 Urine Protein <15 mg/dl mg/dL (Negative) 04/26/19 11:38 Urine Glucose (UA) Neg mg/dL (Negative) 04/26/19 11:38 Urine Ketones Neg mg/dL (Negative) 04/26/19 11:38 Urine Blood Neg (Negative) 04/26/19 11:38 Urine Nitrite Neg (Negative) 04/26/19 11:38 Urine Bilirubin Neg (Negative) 04/26/19 11:38 Urine Urobilinogen < 2.0 mg/dL (<2.0) 04/26/19 11:38 Ur Leukocyte Esterase Neg (Negative) 04/26/19 11:38 Urine WBC (Auto) 1.0 /HPF (0.0-6.0) 04/26/19 11:38 Urine RBC (Auto) < 1.0 /HPF (0.0-6.0) 04/26/19 11:38 U Epithel Cells (Auto) < 1.0 /HPF (0-13.0) 04/26/19 11:38 Vancomycin Trough 10.5 ug/mL (5.0-20.0) 04/28/19 20:48 Urine Opiates Screen Presumptive positive 04/26/19 11:38 Urine Methadone Screen Presumptive negative 04/26/19 11:38 Ur Barbiturates Screen Presumptive negative 04/26/19 11:38 Ur Phencyclidine Scrn Presumptive negative 04/26/19 11:38 Ur Amphetamines Screen Presumptive negative 04/26/19 11:38 U Benzodiazepines Scrn Presumptive negative 04/26/19 11:38 Urine Cocaine Screen Presumptive negative 04/26/19 11:38 U Marijuana (THC) Screen Presumptive negative 04/26/19 11:38 Drugs of Abuse Note Disclamer 04/26/19 11:38 Active Medications - Current Medications Current Medications: Generic Name Dose Route Start Last Admin Trade Name Freq PRN Reason Stop Dose Admin Acetaminophen 650 mg 04/26/19 14:37 04/27/19 16:39 Tylenol PO 650 mg Q4H PRN Administration Pain MILD(1-3)/Fever >100.5/BARONE Acetaminophen/Hydrocodone Bitart 1 each 04/27/19 10:07 04/29/19 10:18 [place] 10/325 PO 1 each Q6H PRN Administration Pain, Moderate (4-6) Albuterol 2.5 mg 04/26/19 14:37 04/27/19 23:25 Proventil IH 2.5 mg Q4HRT PRN Administration Shortness Of Breath Enoxaparin Sodium 40 mg 04/27/19 10:00 04/29/19 10:13 Lovenox SUB-Q 40 mg QDAY@1000 [place] Administration Hydromorphone HCl 1 mg 04/27/19 10:07 04/29/19 07:54 Dilaudid IV 1 mg Q4H PRN Administration Pain , Severe (7-10) Vancomycin HCl 1 gm in 250 mls @ 125 mls/hr 04/27/19 10:00 04/28/19 22:15 Vancomycin/Ns 1 Gm/250 Ml IV 125 mls/hr Q12HR [place] Administration Protocol Metoclopramide HCl 10 mg 04/27/19 23:07 04/28/19 16:07 Reglan IV 10 mg Q6H PRN Administration Nausea And Vomiting Ondansetron HCl 4 mg 04/27/19 23:07 04/29/19 07:54 Zofran IV 4 mg Q4H PRN Administration Nausea And Vomiting Pantoprazole Sodium 40 mg 04/27/19 10:00 04/29/19 10:13 Protonix PO 40 mg DAILY [place] Administration Promethazine HCl 25 mg 04/26/19 14:39 04/29/19 10:18 Phenergan PO 25 mg Q6HR PRN Administration Nausea Sodium Chloride 10 ml 04/26/19 22:00 04/29/19 10:13 Sodium Chloride Flush Syringe 10 Ml IV 10 ml BID [place] Administration Sodium Chloride 10 ml 04/26/19 14:37 04/28/19 21:17 Sodium Chloride Flush Syringe 10 Ml IV 10 ml PRN PRN Administration LINE FLUSH Sodium Chloride 10 ml 04/26/19 14:37 04/28/19 05:31 Sodium Chloride Flush Syringe 10 Ml IV 10 ml PRN PRN Administration LINE FLUSH Sodium Chloride 500 ml 04/26/19 19:45 Nacl 0.9% IV DIRECT [place]
[2019-04-29] MEDS: VANCOMYCIN/NS 1 GM/250 ML 1 GM/250 ML BAG IV SCH ×2 (11:41→23:33)
[2019-04-29] MEDS ORDERED: SENNOSIDES/DOCUSATE SODIUM 8.6/50 MG TAB PO PRN (12:15)
[2019-04-29] MEDS ORDERED: POLYETHYLENE GLYCOL 3350 17 GM POWDER PO PRN (12:15)
[2019-04-29] MEDS ORDERED: FLEET ENEMA PR ONE (13:00)
[2019-04-29] MEDS: METOCLOPRAMIDE 10 MG/2 ML INJ IV PRN (14:26)
--- NOTE | 2019-04-29 15:13 | Consultation ---
History of Present Illness Consult date: 04/29/19 Consult reason: other (fever, possible vegetation seen on MV) History of present illness: Impression Consult for YOUSUF Pt has been treated for breast cancer, had port inserted approx 2 months ago. Now with fever, 2D Echo shows possible vegetation vs. calcification on MV. Plan YOUSUF on tuesday to elucidate finding on 2-D Echo Past History Past Medical History: arthritis, cancer, GERD, hyperlipidemia, other (Chronic Pain) Past Surgical History: tonsillectomy, Other (Lumbar fusion,) Social history: single, smoking Family history: hypertension Medications and Allergies Allergies Allergy/AdvReac Type Severity Reaction Status Date / Time kiwi Allergy Hives Verified 04/26/19 10:02 shellfish derived Allergy Hives Verified 04/26/19 10:02 shrimp Allergy Hives Verified 04/26/19 10:02 Sulfa (Sulfonamide Allergy Rash Verified 04/26/19 10:02 Antibiotics) Home Medications Medication Instructions Recorded Confirmed Last Taken Type Promethazine [Phenergan] 25 mg PO Q6HR PRN 04/05/19 04/26/19 Unknown History Omeprazole 40 mg PO DAILY 04/26/19 04/26/19 Unknown History Active Meds: Active Medications Acetaminophen (Tylenol) 650 mg PO Q4H PRN PRN Reason: Pain MILD(1-3)/Fever >100.5/BARONE Last Admin: 04/27/19 16:39 Dose: 650 mg Documented by: Acetaminophen/Hydrocodone Bitart ([place] [id number]) 1 each PO Q6H PRN PRN Reason: Pain, Moderate (4-6) Last Admin: 04/29/19 10:18 Dose: 1 each Documented by: Albuterol (Proventil) 2.5 mg IH Q4HRT PRN PRN Reason: Shortness Of Breath Last Admin: 04/27/19 23:25 Dose: 2.5 mg Documented by: Enoxaparin Sodium (Lovenox) 40 mg SUB-Q QDAY@1000 [place] Last Admin: 04/29/19 10:13 Dose: 40 mg Documented by: Hydromorphone HCl (Dilaudid) 1 mg IV Q4H PRN PRN Reason: Pain , Severe (7-10) Last Admin: 04/29/19 14:26 Dose: 1 mg Documented by: Vancomycin HCl (Vancomycin/Ns 1 Gm/250 Ml) 1 gm in 250 mls @ 125 mls/hr IV Q12HR [place]; Protocol Last Admin: 04/29/19 11:41 Dose: 125 mls/hr Documented by: Metoclopramide HCl (Reglan) 10 mg IV Q6H PRN PRN Reason: Nausea And Vomiting Last Admin: 04/29/19 14:26 Dose: 10 mg Documented by: Ondansetron HCl (Zofran) 4 mg IV Q4H PRN PRN Reason: Nausea And Vomiting Last Admin: 04/29/19 07:54 Dose: 4 mg Documented by: Pantoprazole Sodium (Protonix) 40 mg PO DAILY [place] Last Admin: 04/29/19 10:13 Dose: 40 mg Documented by: Polyethylene Glycol (Miralax [id number]) 17 gm PO BID PRN PRN Reason: Constipation Last Admin: 04/29/19 14:25 Dose: 17 gm Documented by: Promethazine HCl (Phenergan) 25 mg PO Q6HR PRN PRN Reason: Nausea Last Admin: 04/29/19 10:18 Dose: 25 mg Documented by: Senna/Docusate Sodium (Senokot S) 2 tab PO Q12H PRN PRN Reason: Laxative Effect Sodium Chloride (Sodium Chloride Flush Syringe 10 Ml) 10 ml IV BID [place] Last Admin: 04/29/19 10:13 Dose: 10 ml Documented by: Sodium Chloride (Sodium Chloride Flush Syringe 10 Ml) 10 ml IV PRN PRN PRN Reason: LINE FLUSH Last Admin: 04/28/19 21:17 Dose: 10 ml Documented by: Sodium Chloride (Sodium Chloride Flush Syringe 10 Ml) 10 ml IV PRN PRN PRN Reason: LINE FLUSH Last Admin: 04/28/19 05:31 Dose: 10 ml Documented by: Sodium Chloride (Nacl 0.9%) 500 ml IV DIRECT [facility] Review of Systems All systems: negative (stated in impression) Physical Examination Vital Signs Pulse 84 04/26/19 11:00 General appearance: no acute distress HEENT: Positive: PERRL, EOMI Neck: Positive: neck supple Cardiac: Positive: S1/S2, Systolic Murmur Lungs: Positive: Normal Exam Results 04/27/19 08:22 04/27/19 08:22
--- NOTE | 2019-04-29 16:05 | Progress Note ---
Assessment and Plan Cultures: Blood culture 04/26/2019 no growth today. Assessment: 58 y/o female with history of smoking abuse, metastatic breast cancer (invasive poorly differentiated ductal and lobular) diagnosed in February [address] Viverso and Dr Santiago s/p chemo x 2 via a right sided port-A-cath, admitted on 04/26/2019 due to port site pain and erythema associated with malaise and subjective fever: 1) SIRS: fever and leukemoid reaction improving, etiology unclear. ? culture negative endocarditis. TTE abnormal ? MV vegetation. Doppler US no DVT. DDx port-site infection (no obvious on exam and blood culture are pending) v/s metastatic ulcerative left breast cancer causing reactive leukocytosis v/s breast cancer site cellulitis/ abscess (no obvious on exam). No history of recent diarrhea to consider C diff colitis. CXR negative. CTA with no pneumonia and positive multiple intraabominal LNs. Unknown if she received G-CSF for neutropenia with now post G-CSF neutrophilia. Port was placed on 04/06/2019 Recommendations: follow up blood cultures Repeat blood cultures Obtain YOUSUF continue vancomycin with PK consult monitor leukocytosis and fever Dr Acuna is rounding tomorrow Will follow. Rachell Sylvester MD Infectious Diseases Physical Chemistry Teacher [facility] ([facility] M [phone] O [phone] Subjective Date of service: 04/29/19 Principal diagnosis: breast ca - left - on chemo Interval history: Feels some better still port site pain, fever trending down Objective - Exam Narrative Exam: General appearance: Alert in NAD Eyes: anicteric sclerae, moist conjunctivae; no lid-lag; PERRLA HENT: Atraumatic; oropharynx clear with moist mucous membranes and no mucosal ulcerations/no oral thrush; normal hard and soft palate. Lungs: CTA, with normal respiratory effort and no intercostal retractions CV: RRR no murmur Abdomen: Soft, non-tender Extremities: edema Skin: +right sided port with mild tenderness and edema but no erythema or drainage. +left breast ulcerated mass with no drainage or erythema. Psych: Appropriate affect, alert and oriented to person, place and time. Neuro: alert and oriented x 3. Moving all extermities - Constitutional Vitals: Vital Signs Temp Pulse Resp BP Pulse Ox 99.5 F 61 22 122/54 97 04/29/19 11:49 04/29/19 11:49 04/29/19 11:49 04/29/19 11:49 04/29/19 11:49 Temperature -Last 24 Hours Temperature 99.5 F Temperature 98.9 F Temperature 99.0 F Temperature 99.0 F - Labs CBC & Chem 7: 04/27/19 08:22 04/27/19 08:22
[2019-04-29] MEDS: ACETAMINOPHEN 325 MG TAB PO PRN (17:54)
[2019-04-30] MEDS: MAGIC MOUTHWASH 30ML PO SCH ×2 (00:55→08:14)
[2019-04-30] MEDS: HYDROmorphone 1 MG/1 ML INJ IV PRN ×3 (03:39→11:36)
--- NOTE | 2019-04-30 07:21 | Hem/Onc Progress Note ---
Assessment and Plan 1. Left breast cancer. As per the patient, stage 3A, follows Dr. Viveros. The patient on Adriamycin based chemotherapy. She received cycle 2 and then on Neulasta. The white cell count is high likely secondary to Neulasta. Body ache and low-grade fever may also be because of Neulasta. 2. Port present, right side. 3. Lymphadenopathy in abdomen. 4. At this time, we will follow the patient during inpatient stay. We will see the trend of white cell count. Predominant neutrophil is consistent with the GCSF effect. YOUSUF neck doppler labs now - Patient Problems (1) Breast cancer Current Visit: Yes Status: Acute Qualifiers: Laterality: left Subjective Date of service: 04/30/19 Principal diagnosis: breast ca - high wbc Interval history: due YOUSUF Objective - Exam Narrative Exam: Pain - chest/port area for > 1 month General appearance - awake - poor vision Performance status limited self care Eyes - no icterus ENT - no bleeding LNs cervical not palpable Neck - no LN Respiratory Normal Breath sounds - CTA anteriorly CVS S1 S2 + Extremities no calf tenderness General GI Soft Rectal deferred male - deferred Skin warm - rt port Musculoskeletal moving extremitites Neurologically awake - Constitutional Vitals: Last Vital Signs Temp 98.7 F 04/30/19 05:31 Pulse 59 L 04/30/19 05:31 Resp 18 04/30/19 05:31 BP 130/49 04/30/19 05:31 Pulse Ox 92 04/30/19 05:31 Medications & Allergies - Medications Allergies/Adverse Reactions: Allergies kiwi Allergy (Verified 04/26/19 10:02) Hives shellfish derived Allergy (Verified 04/26/19 10:02) Hives shrimp Allergy (Verified 04/26/19 10:02) Hives Sulfa (Sulfonamide Antibiotics) Allergy (Verified 04/26/19 10:02) Rash Home Medications: Home Medications Medication Instructions Recorded Confirmed Last Taken Type Promethazine [Phenergan] 25 mg PO Q6HR PRN 04/05/19 04/26/19 Unknown History Omeprazole 40 mg PO DAILY 04/26/19 04/26/19 Unknown History Active Medications: Generic Name Dose Route Start Last Admin Trade Name Freq PRN Reason Stop Dose Admin Acetaminophen 650 mg 04/26/19 14:37 04/29/19 17:54 Tylenol PO 650 mg Q4H PRN Administration Pain MILD(1-3)/Fever >100.5/BARONE Acetaminophen/Hydrocodone Bitart 1 each 04/27/19 10:07 04/29/19 10:18 [place] 10/325 PO 1 each Q6H PRN Administration Pain, Moderate (4-6) Albuterol 2.5 mg 04/26/19 14:37 04/27/19 23:25 Proventil IH 2.5 mg Q4HRT PRN Administration Shortness Of Breath Enoxaparin Sodium 40 mg 04/27/19 10:00 04/29/19 10:13 Lovenox SUB-Q 40 mg QDAY@1000 [place] Administration Hydromorphone HCl 1 mg 04/27/19 10:07 04/30/19 03:39 Dilaudid IV 1 mg Q4H PRN Administration Pain , Severe (7-10) Vancomycin HCl 1 gm in 250 mls @ 125 mls/hr 04/27/19 10:00 04/29/19 23:33 Vancomycin/Ns 1 Gm/250 Ml IV 125 mls/hr Q12HR [place] Administration Protocol Lidocaine HCl 15 ml 04/30/19 00:06 04/30/19 00:55 Magic Mouthwash PO 15 ml TID [place] Administration Metoclopramide HCl 10 mg 04/27/19 23:07 04/29/19 14:26 Reglan IV 10 mg Q6H PRN Administration Nausea And Vomiting Ondansetron HCl 4 mg 04/27/19 23:07 04/29/19 23:32 Zofran IV 4 mg Q4H PRN Administration Nausea And Vomiting Pantoprazole Sodium 40 mg 04/27/19 10:00 04/29/19 10:13 Protonix PO 40 mg DAILY [place] Administration Polyethylene Glycol 17 gm 04/29/19 12:15 04/29/19 14:25 Miralax 3350 PO 17 gm BID PRN Administration Constipation Promethazine HCl 25 mg 04/26/19 14:39 04/29/19 10:18 Phenergan PO 25 mg Q6HR PRN Administration Nausea Senna/Docusate Sodium 2 tab 04/29/19 12:15 Senokot S PO Q12H PRN Laxative Effect Sodium Chloride 10 ml 04/26/19 22:00 04/30/19 00:28 Sodium Chloride Flush Syringe 10 Ml IV 10 ml BID [place] Administration Sodium Chloride 10 ml 04/26/19 14:37 04/28/19 21:17 Sodium Chloride Flush Syringe 10 Ml IV 10 ml PRN PRN Administration LINE FLUSH Sodium Chloride 10 ml 04/26/19 14:37 04/28/19 05:31 Sodium Chloride Flush Syringe 10 Ml IV 10 ml PRN PRN Administration LINE FLUSH Sodium Chloride 500 ml 04/26/19 19:45 Nacl 0.9% IV DIRECT [place]
--- NOTE | 2019-04-30 07:35 | Progress Note ---
Assessment and Plan Assessment and plan: Left breast ca metastic to Axillary LNWho presented to the hospital chest wall pain around her Chemo-Port, complaining of neck discomfort and swelling also. Thinks she had low-grade fevers SIRS c.o pain and swelling around r chest chemoport and pain and swelling of neck -?infection?, Vascular consult appreciated, no issues with port, no evidence of clot or svc syndrome, ID consult, empiric abx, fup blood cx echo shows MV mass, ?vegetation, Cardiology input appreciated, for YOUSUF today Leukocystosis most likely due to neulasta - L breast ca on chemo Outpatient management w Dr Viveros pain control Continue pain meds DVT prophylaxis With Lovenox History Interval history: no CP, sob or fever c/o of R chest wall pain around port which has improved c/o neck discomfort and swelling which has improved no vomiting, no fever Hospitalist Physical - Physical exam Narrative exam: General appearance: Present: mild distress - EENT Eyes: Present: PERRL ENT: hearing intact - Neck Neck: Present: supple - Respiratory Respiratory effort: normal Respiratory: bilateral: CTA Ulcerated mass of left breast - Cardiovascular Rhythm: regular Heart Sounds: Present: S1 & S2 - Extremities Extremities: no ischemia - Abdominal General gastrointestinal: soft, non-tender - Integumentary Integumentary: Present: clear, warm - Psychiatric Psychiatric: appropriate mood/affect, memory intact - Neurologic Neurologic: CNII-XII intact, moves all extremities - Constitutional Vitals: Temp Pulse Resp BP Pulse Ox 98.7 F 59 L 18 130/49 92 04/30/19 05:31 04/30/19 05:31 04/30/19 05:31 04/30/19 05:31 04/30/19 05:31 General appearance: Present: mild distress Results - Labs CBC & Chem 7: 04/27/19 08:22 04/27/19 08:22 Labs: Laboratory Last Values WBC 22.4 K/mm3 (4.5-11.0) H 04/27/19 08:22 RBC 2.92 M/mm3 (3.65-5.03) L 04/27/19 08:22 Hgb 9.5 gm/dl (10.1-14.3) L 04/27/19 08:22 Hct 27.7 % (30.3-42.9) L 04/27/19 08:22 MCV 95 fl (79-97) 04/27/19 08:22 MCH 33 pg (28-32) H 04/27/19 08:22 MCHC 35 % (30-34) H 04/27/19 08:22 RDW 13.2 % (13.2-15.2) 04/27/19 08:22 Plt Count 232 K/mm3 (140-440) 04/27/19 08:22 Add Manual Diff Complete 04/27/19 08:22 Total Counted 100 04/27/19 08:22 Seg Neutrophils % Tank Car Reconditioner 04/27/19 08:22 Seg Neuts % (Manual) 93.0 % (40.0-70.0) H 04/27/19 08:22 Band Neutrophils % 3.0 % 04/27/19 08:22 Lymphocytes % (Manual) 4.0 % (13.4-35.0) L 04/27/19 08:22 Reactive Lymphs % (Man) 0 % 04/27/19 08:22 Monocytes % (Manual) 0 % (0.0-7.3) 04/27/19 08:22 Eosinophils % (Manual) 0 % (0.0-4.3) 04/27/19 08:22 Basophils % (Manual) 0 % (0.0-1.8) 04/27/19 08:22 Metamyelocytes % 0 % 04/27/19 08:22 Myelocytes % 0 % 04/27/19 08:22 Promyelocytes % 0 % 04/27/19 08:22 Blast Cells % 0 % 04/27/19 08:22 Nucleated RBC % Not Reportable 04/27/19 08:22 Seg Neutrophils # Man 20.8 K/mm3 (1.8-7.7) H 04/27/19 08:22 Band Neutrophils # 0.7 K/mm3 04/27/19 08:22 Lymphocytes # (Manual) 0.9 K/mm3 (1.2-5.4) L 04/27/19 08:22 Abs React Lymphs (Man) 0.0 K/mm3 04/27/19 08:22 Monocytes # (Manual) 0.0 K/mm3 (0.0-0.8) 04/27/19 08:22 Eosinophils # (Manual) 0.0 K/mm3 (0.0-0.4) 04/27/19 08:22 Basophils # (Manual) 0.0 K/mm3 (0.0-0.1) 04/27/19 08:22 Metamyelocytes # 0.0 K/mm3 04/27/19 08:22 Myelocytes # 0.0 K/mm3 04/27/19 08:22 Promyelocytes # 0.0 K/mm3 04/27/19 08:22 Blast Cells # 0.0 K/mm3 04/27/19 08:22 Pathologist Review 04/26/19 10:10 WBC Morphology Not Reportable 04/27/19 08:22 Hypersegmented Neuts Not Reportable 04/27/19 08:22 Hyposegmented Neuts Not Reportable 04/27/19 08:22 Hypogranular Neuts Not Reportable 04/27/19 08:22 Smudge Cells Not Reportable 04/27/19 08:22 Toxic Granulation Not Reportable 04/27/19 08:22 Toxic Vacuolation Not Reportable 04/27/19 08:22 Dohle Bodies 1+ 04/27/19 08:22 Pelger-Huet Anomaly Not Reportable 04/27/19 08:22 Tulio Rods Not Reportable 04/27/19 08:22 Platelet Estimate Consistent w auto 04/27/19 08:22 Clumped Platelets Not Reportable 04/27/19 08:22 Plt Clumps, EDTA Not Reportable 04/27/19 08:22 Large Platelets Not Reportable 04/27/19 08:22 Giant Platelets Not Reportable 04/27/19 08:22 Platelet Satelliting Not Reportable 04/27/19 08:22 Plt Morphology Comment Not Reportable 04/27/19 08:22 RBC Morphology Not Reportable 04/27/19 08:22 Dimorphic RBCs Not Reportable 04/27/19 08:22 Polychromasia Not Reportable 04/27/19 08:22 Hypochromasia Not Reportable 04/27/19 08:22 Poikilocytosis Not Reportable 04/27/19 08:22 Anisocytosis Not Reportable 04/27/19 08:22 Microcytosis Not Reportable 04/27/19 08:22 Macrocytosis Not Reportable 04/27/19 08:22 Spherocytes Not Reportable 04/27/19 08:22 Pappenheimer Bodies Not Reportable 04/27/19 08:22 Sickle Cells Not Reportable 04/27/19 08:22 Target Cells Not Reportable 04/27/19 08:22 Tear Drop Cells Not Reportable 04/27/19 08:22 Ovalocytes Not Reportable 04/27/19 08:22 Stomatocytes Few 04/27/19 08:22 Helmet Cells Not Reportable 04/27/19 08:22 Timmons-[place] Bodies Not Reportable 04/27/19 08:22 [place] Rings Not Reportable 04/27/19 08:22 [place] Cells Not Reportable 04/27/19 08:22 Bite Cells Not Reportable 04/27/19 08:22 Crenated Cell Not Reportable 04/27/19 08:22 Elliptocytes Not Reportable 04/27/19 08:22 Acanthocytes (Spur) Not Reportable 04/27/19 08:22 Rouleaux Not Reportable 04/27/19 08:22 Hemoglobin C Crystals Not Reportable 04/27/19 08:22 Schistocytes Not Reportable 04/27/19 08:22 Malaria parasites Not Reportable 04/27/19 08:22 Balwinder Bodies Not Reportable 04/27/19 08:22 Hem Pathologist Commnt No 04/27/19 08:22 PT 12.6 Sec. (12.2-14.9) 04/26/19 10:10 INR 0.97 (0.87-1.13) 04/26/19 10:10 APTT 23.1 Sec. (24.2-36.6) L 04/26/19 10:10 Sodium 137 mmol/L (137-145) 04/27/19 08:22 Potassium 4.5 mmol/L (3.6-5.0) 04/27/19 08:22 Chloride 104.9 mmol/L (98-107) 04/27/19 08:22 Carbon Dioxide 20 mmol/L (22-30) L 04/27/19 08:22 Anion Gap 17 mmol/L 04/27/19 08:22 BUN 15 mg/dL (7-17) 04/27/19 08:22 Creatinine 0.7 mg/dL (0.7-1.2) 04/27/19 08:22 Estimated GFR > 60 ml/min 04/27/19 08:22 BUN/Creatinine Ratio 21 % 04/27/19 08:22 Glucose 107 mg/dL (65-100) H 04/27/19 08:22 Calcium 8.1 mg/dL (8.4-10.2) L 04/27/19 08:22 Phosphorus 3.30 mg/dL (2.5-4.5) 04/27/19 08:22 Magnesium 1.90 mg/dL (1.7-2.3) 04/27/19 08:22 Total Bilirubin 0.20 mg/dL (0.1-1.2) 04/26/19 10:10 AST 10 units/L (5-40) 04/26/19 10:10 ALT 6 units/L (7-56) L 04/26/19 10:10 Alkaline Phosphatase 129 units/L (35-129) 04/26/19 10:10 Troponin T < 0.010 ng/mL (0.00-0.029) 04/26/19 20:38 Total Protein 7.3 g/dL (6.3-8.2) 04/26/19 10:10 Albumin 3.4 g/dL (3.9-5) L 04/26/19 10:10 Albumin/Globulin Ratio 0.9 % 04/26/19 10:10 Urine Color Yellow (Yellow) 04/26/19 11:38 Urine Turbidity Clear (Clear) 04/26/19 11:38 Urine pH 5.0 (5.0-7.0) 04/26/19 11:38 Ur Specific [place] 1.016 (1.003-1.030) 04/26/19 11:38 Urine Protein <15 mg/dl mg/dL (Negative) 04/26/19 11:38 Urine Glucose (UA) Neg mg/dL (Negative) 04/26/19 11:38 Urine Ketones Neg mg/dL (Negative) 04/26/19 11:38 Urine Blood Neg (Negative) 04/26/19 11:38 Urine Nitrite Neg (Negative) 04/26/19 11:38 Urine Bilirubin Neg (Negative) 04/26/19 11:38 Urine Urobilinogen < 2.0 mg/dL (<2.0) 04/26/19 11:38 Ur Leukocyte Esterase Neg (Negative) 04/26/19 11:38 Urine WBC (Auto) 1.0 /HPF (0.0-6.0) 04/26/19 11:38 Urine RBC (Auto) < 1.0 /HPF (0.0-6.0) 04/26/19 11:38 U Epithel Cells (Auto) < 1.0 /HPF (0-13.0) 04/26/19 11:38 Vancomycin Trough 10.5 ug/mL (5.0-20.0) 04/28/19 20:48 Urine Opiates Screen Presumptive positive 04/26/19 11:38 Urine Methadone Screen Presumptive negative 04/26/19 11:38 Ur Barbiturates Screen Presumptive negative 04/26/19 11:38 Ur Phencyclidine Scrn Presumptive negative 04/26/19 11:38 Ur Amphetamines Screen Presumptive negative 04/26/19 11:38 U Benzodiazepines Scrn Presumptive negative 04/26/19 11:38 Urine Cocaine Screen Presumptive negative 04/26/19 11:38 U Marijuana (THC) Screen Presumptive negative 04/26/19 11:38 Drugs of Abuse Note Disclamer 04/26/19 11:38 Active Medications - Current Medications Current Medications: Generic Name Dose Route Start Last Admin Trade Name Freq PRN Reason Stop Dose Admin Acetaminophen 650 mg 04/26/19 14:37 04/29/19 17:54 Tylenol PO 650 mg Q4H PRN Administration Pain MILD(1-3)/Fever >100.5/BARONE Acetaminophen/Hydrocodone Bitart 1 each 04/27/19 10:07 04/29/19 10:18 [place] 10/325 PO 1 each Q6H PRN Administration Pain, Moderate (4-6) Albuterol 2.5 mg 04/26/19 14:37 04/27/19 23:25 Proventil IH 2.5 mg Q4HRT PRN Administration Shortness Of Breath Enoxaparin Sodium 40 mg 04/27/19 10:00 04/29/19 10:13 Lovenox SUB-Q 40 mg QDAY@1000 [place] Administration Hydromorphone HCl 1 mg 04/27/19 10:07 04/30/19 03:39 Dilaudid IV 1 mg Q4H PRN Administration Pain , Severe (7-10) Vancomycin HCl 1 gm in 250 mls @ 125 mls/hr 04/27/19 10:00 04/29/19 23:33 Vancomycin/Ns 1 Gm/250 Ml IV 125 mls/hr Q12HR [place] Administration Protocol Lidocaine HCl 15 ml 04/30/19 00:06 04/30/19 00:55 Magic Mouthwash PO 15 ml TID [place] Administration Metoclopramide HCl 10 mg 04/27/19 23:07 04/29/19 14:26 Reglan IV 10 mg Q6H PRN Administration Nausea And Vomiting Ondansetron HCl 4 mg 04/27/19 23:07 04/29/19 23:32 Zofran IV 4 mg Q4H PRN Administration Nausea And Vomiting Pantoprazole Sodium 40 mg 04/27/19 10:00 04/29/19 10:13 Protonix PO 40 mg DAILY [place] Administration Polyethylene Glycol 17 gm 04/29/19 12:15 04/29/19 14:25 Miralax 3350 PO 17 gm BID PRN Administration Constipation Promethazine HCl 25 mg 04/26/19 14:39 04/29/19 10:18 Phenergan PO 25 mg Q6HR PRN Administration Nausea Senna/Docusate Sodium 2 tab 04/29/19 12:15 Senokot S PO Q12H PRN Laxative Effect Sodium Chloride 10 ml 04/26/19 22:00 04/30/19 00:28 Sodium Chloride Flush Syringe 10 Ml IV 10 ml BID [place] Administration Sodium Chloride 10 ml 04/26/19 14:37 04/28/19 21:17 Sodium Chloride Flush Syringe 10 Ml IV 10 ml PRN PRN Administration LINE FLUSH Sodium Chloride 10 ml 04/26/19 14:37 04/28/19 05:31 Sodium Chloride Flush Syringe 10 Ml IV 10 ml PRN PRN Administration LINE FLUSH Sodium Chloride 500 ml 04/26/19 19:45 Nacl 0.9% IV DIRECT [place]
--- NOTE | 2019-04-30 09:57 | Consultation ---
Past History Past Medical History: arthritis, cancer, GERD, hyperlipidemia, other (Chronic Pain) Past Surgical History: tonsillectomy, Other (Lumbar fusion,) Social history: single, smoking Family history: hypertension Medications and Allergies Allergies Allergy/AdvReac Type Severity Reaction Status Date / Time kiwi Allergy Hives Verified 04/26/19 10:02 shellfish derived Allergy Hives Verified 04/26/19 10:02 shrimp Allergy Hives Verified 04/26/19 10:02 Sulfa (Sulfonamide Allergy Rash Verified 04/26/19 10:02 Antibiotics) Home Medications Medication Instructions Recorded Confirmed Last Taken Type Promethazine [Phenergan] 25 mg PO Q6HR PRN 04/05/19 04/26/19 Unknown History Omeprazole 40 mg PO DAILY 04/26/19 04/26/19 Unknown History Active Meds: Active Medications Acetaminophen (Tylenol) 650 mg PO Q4H PRN PRN Reason: Pain MILD(1-3)/Fever >100.5/BARONE Last Admin: 04/29/19 17:54 Dose: 650 mg Documented by: Acetaminophen/Hydrocodone Bitart ([place] 10/325) 1 each PO Q6H PRN PRN Reason: Pain, Moderate (4-6) Last Admin: 04/29/19 10:18 Dose: 1 each Documented by: Albuterol (Proventil) 2.5 mg IH Q4HRT PRN PRN Reason: Shortness Of Breath Last Admin: 04/27/19 23:25 Dose: 2.5 mg Documented by: Enoxaparin Sodium (Lovenox) 40 mg SUB-Q QDAY@1000 [place] Last Admin: 04/29/19 10:13 Dose: 40 mg Documented by: Hydromorphone HCl (Dilaudid) 1 mg IV Q4H PRN PRN Reason: Pain , Severe (7-10) Last Admin: 04/30/19 08:14 Dose: 1 mg Documented by: Vancomycin HCl (Vancomycin/Ns 1 Gm/250 Ml) 1 gm in 250 mls @ 125 mls/hr IV Q12HR [place]; Protocol Last Admin: 04/29/19 23:33 Dose: 125 mls/hr Documented by: Lidocaine HCl (Magic Mouthwash) 15 ml PO TID [place] Last Admin: 04/30/19 08:14 Dose: Not Given Documented by: Metoclopramide HCl (Reglan) 10 mg IV Q6H PRN PRN Reason: Nausea And Vomiting Last Admin: 04/29/19 14:26 Dose: 10 mg Documented by: Ondansetron HCl (Zofran) 4 mg IV Q4H PRN PRN Reason: Nausea And Vomiting Last Admin: 04/29/19 23:32 Dose: 4 mg Documented by: Pantoprazole Sodium (Protonix) 40 mg PO DAILY [facility] Last Admin: 04/29/19 10:13 Dose: 40 mg Documented by: Polyethylene Glycol (Miralax 3350) 17 gm PO BID PRN PRN Reason: Constipation Last Admin: 04/29/19 14:25 Dose: 17 gm Documented by: Promethazine HCl (Phenergan) 25 mg PO Q6HR PRN PRN Reason: Nausea Last Admin: 04/29/19 10:18 Dose: 25 mg Documented by: Senna/Docusate Sodium (Senokot S) 2 tab PO Q12H PRN PRN Reason: Laxative Effect Sodium Chloride (Sodium Chloride Flush Syringe 10 Ml) 10 ml IV BID [facility] Last Admin: 04/30/19 00:28 Dose: 10 ml Documented by: Sodium Chloride (Sodium Chloride Flush Syringe 10 Ml) 10 ml IV PRN PRN PRN Reason: LINE FLUSH Last Admin: 04/28/19 21:17 Dose: 10 ml Documented by: Sodium Chloride (Sodium Chloride Flush Syringe 10 Ml) 10 ml IV PRN PRN PRN Reason: LINE FLUSH Last Admin: 04/28/19 05:31 Dose: 10 ml Documented by: Sodium Chloride (Nacl 0.9%) 500 ml IV DIRECT [facility] Physical Examination - Physical Exam Narrative exam: General appearance: Alert in NAD Eyes: anicteric sclerae, moist conjunctivae; no lid-lag; PERRLA HENT: Atraumatic; oropharynx clear with moist mucous membranes and no mucosal ulcerations/no oral thrush; normal hard and soft palate. Lungs: CTA, with normal respiratory effort and no intercostal retractions CV: RRR no murmur Abdomen: Soft, non-tender Extremities: edema Skin: +right sided port with mild tenderness and edema but no erythema or drainage. +left breast ulcerated mass with no drainage or erythema. Psych: Appropriate affect, alert and oriented to person, place and time. Neuro: alert and oriented x 3. Moving all extermities - Constitutional Vitals: Vital Signs Temp Pulse Resp BP Pulse Ox 98.7 F 59 L 18 130/49 92 04/30/19 05:31 04/30/19 05:31 04/30/19 05:31 04/30/19 05:31 04/30/19 05:31 Temperature -Last 24 Hours Temperature 98.7 F Temperature 98.9 F Temperature 100.3 F Temperature 99.5 F Results - Labs CBC & Chem 7: 04/27/19 08:22 04/27/19 08:22 Assessment and Plan 58 y/o female with history of smoking abuse, metastatic breast cancer (invasive poorly differentiated ductal and lobular) diagnosed in February [address] Viveros and Dr Santiago s/p chemo x 2 via a right sided port-A-cath, admitted on 04/26/2019 due to port site pain and erythema associated with malaise and subjective fever: 1) SIRS: fever and leukemoid reaction improving, etiology unclear. ? culture negative endocarditis. TTE abnormal ? MV vegetation. Doppler US no DVT. DDx port-site infection (no obvious on exam and blood culture are pending) v/s metastatic ulcerative left breast cancer causing reactive leukocytosis v/s breast cancer site cellulitis/abscess (no obvious on exam). No history of recent diarrhea to consider C diff colitis. CXR negative. CTA with no pneumonia and positive multiple intraabominal LNs. Unknown if she received G-CSF for neutropenia with now post G-CSF neutrophilia. Port was placed on 04/06/2019 Recommendations: follow up blood cultures Repeat blood cultures Obtain YOUSUF continue vancomycin with PK consult monitor leukocytosis and fever
--- NOTE | 2019-04-30 10:36 | Progress Note ---
Subjective Date of service: 04/30/19 Principal diagnosis: breast ca - high wbc Interval history: patient continues to have generalized neck/facial pain bilaterally venous duplex negative for DVT blood cultures remain negative to date symptoms not likely related to port will avoid removal at this time please call for any questions/concerns Objective - Constitutional Vitals: Vital Signs - 12hr 04/29/19 04/30/19 23:35 05:31 Temperature 98.9 F 98.7 F Pulse Rate 66 59 L Respiratory 20 18 Rate Blood Pressure 139/67 130/49 O2 Sat by Pulse 98 92 Oximetry - Labs CBC & Chem 7: 04/27/19 08:22 04/27/19 08:22 Medications & Allergies - Medications Allergies/Adverse Reactions: Allergies kiwi Allergy (Verified 04/26/19 10:02) Hives shellfish derived Allergy (Verified 04/26/19 10:02) Hives shrimp Allergy (Verified 04/26/19 10:02) Hives Sulfa (Sulfonamide Antibiotics) Allergy (Verified 04/26/19 10:02) Rash Home Medications: Home Medications Medication Instructions Recorded Confirmed Last Taken Type Promethazine [Phenergan] 25 mg PO Q6HR PRN 04/05/19 04/26/19 Unknown History Omeprazole 40 mg PO DAILY 04/26/19 04/26/19 Unknown History Active Medications: Generic Name Dose Route Start Last Admin Trade Name Freq PRN Reason Stop Dose Admin Acetaminophen 650 mg 04/26/19 14:37 04/29/19 17:54 Tylenol PO 650 mg Q4H PRN Administration Pain MILD(1-3)/Fever >100.5/BARONE Acetaminophen/Hydrocodone Bitart 1 each 04/27/19 10:07 04/29/19 10:18 [place] 10/325 PO 1 each Q6H PRN Administration Pain, Moderate (4-6) Albuterol 2.5 mg 04/26/19 14:37 04/27/19 23:25 Proventil IH 2.5 mg Q4HRT PRN Administration Shortness Of Breath Enoxaparin Sodium 40 mg 04/27/19 10:00 04/29/19 10:13 Lovenox SUB-Q 40 mg QDAY@1000 [place] Administration Hydromorphone HCl 1 mg 04/27/19 10:07 04/30/19 08:14 Dilaudid IV 1 mg Q4H PRN Administration Pain , Severe (7-10) Vancomycin HCl 1 gm in 250 mls @ 125 mls/hr 04/27/19 10:00 04/29/19 23:33 Vancomycin/Ns 1 Gm/250 Ml IV 125 mls/hr Q12HR [place] Administration Protocol Lidocaine HCl 15 ml 04/30/19 00:06 04/30/19 08:14 Magic Mouthwash PO Not Given TID [place] Metoclopramide HCl 10 mg 04/27/19 23:07 04/29/19 14:26 Reglan IV 10 mg Q6H PRN Administration Nausea And Vomiting Ondansetron HCl 4 mg 04/27/19 23:07 04/29/19 23:32 Zofran IV 4 mg Q4H PRN Administration Nausea And Vomiting Pantoprazole Sodium 40 mg 04/27/19 10:00 04/29/19 10:13 Protonix PO 40 mg DAILY [place] Administration Polyethylene Glycol 17 gm 04/29/19 12:15 04/29/19 14:25 Miralax 3350 PO 17 gm BID PRN Administration Constipation Promethazine HCl 25 mg 04/26/19 14:39 04/29/19 10:18 Phenergan PO 25 mg Q6HR PRN Administration Nausea Senna/Docusate Sodium 2 tab 04/29/19 12:15 Senokot S PO Q12H PRN Laxative Effect Sodium Chloride 10 ml 04/26/19 22:00 04/30/19 00:28 Sodium Chloride Flush Syringe 10 Ml IV 10 ml BID [place] Administration Sodium Chloride 10 ml 04/26/19 14:37 04/28/19 21:17 Sodium Chloride Flush Syringe 10 Ml IV 10 ml PRN PRN Administration LINE FLUSH Sodium Chloride 10 ml 04/26/19 14:37 04/28/19 05:31 Sodium Chloride Flush Syringe 10 Ml IV 10 ml PRN PRN Administration LINE FLUSH Sodium Chloride 500 ml 04/26/19 19:45 Nacl 0.9% IV DIRECT [place]
[2019-04-30 11:16] LABS: Alanine Aminotransferase 10 units/L (7-56); Albumin 3.5 g/dL (3.9-5); BUN/Creatinine Ratio 19; Blood Urea Nitrogen 13 mg/dL (7-17); Calcium 8.8 mg/dL (8.4-10.2); Hemolysis Index 0
--- NOTE | 2019-04-30 11:17 | Progress Note ---
Assessment and Plan Cultures: Blood culture 04/26/2019 no growth to date. Blood culture 04/29/2019 no growth to date Assessment: 58 y/o female with history of smoking abuse, metastatic breast cancer (invasive poorly differentiated ductal and lobular) diagnosed in February [address] Viveros and Dr Santiago s/p chemo x 2 via a right sided port-A-cath, admitted on 04/26/2019 due to port site pain and erythema associated with malaise and subjective fever: 1) SIRS: fever and leukemoid reaction improving, etiology unclear. ? culture negative endocarditis. TTE abnormal ? MV vegetation. Doppler US no DVT. DDx port-site infection (no obvious on exam and blood culture are pending) v/s metastatic ulcerative left breast cancer causing reactive leukocytosis v/s breast cancer site cellulitis/ abscess (no obvious on exam). No history of recent diarrhea to consider C diff colitis. CXR negative. CTA with no pneumonia and positive multiple intraabominal LNs. Unknown if she received G-CSF for neutropenia with now post G-CSF neutrophilia. Port was placed on 04/06/2019. Echo with calcifications per cardiology. Complains of wound symptoms similar to previous. Will give doxycycline for discharge as she is allergic to Bactrim. Would preferably avoid clinda given neutropenia and repeated hospital exposures so as to reduce C diff risk. Recommendations: On discharge, please give 1 week further of doxycycline 100mg q12h PO. Stop date: 05/07/19. Consider outpatient YOUSUF, defer to cardiology. Thank you for the consult, will continue to follow. Cecelia Acuna MD [facility] ([facility] M: [phone] O: [phone] F: [phone] Subjective Principal diagnosis: breast ca - high wbc Interval history: Feels improved. Afebrile, now neutropenic. She notes she recently had drainage and pain in the breast lesion that is similar to her current complaints that was resolved with clindamycin. Objective - Exam Narrative Exam: General appearance: Alert in NAD. Alopecia Eyes: anicteric sclerae, moist conjunctivae; no lid-lag; PERRLA HENT: Atraumatic; oropharynx clear with moist mucous membranes and no mucosal ulcerations/no oral thrush; normal hard and soft palate. Lungs: CTA, with normal respiratory effort and no intercostal retractions CV: RRR no murmur Abdomen: Soft, non-tender Extremities: edema Skin: +right sided port with mild tenderness and edema but no erythema or drainage. +left breast ulcerated mass with no drainage or erythema. Psych: Appropriate affect, alert and oriented to person, place and time. Neuro: alert and oriented x 3. Moving all extermities - Constitutional Vitals: Vital Signs Temp Pulse Resp BP Pulse Ox 98.7 F 62 18 130/49 92 04/30/19 05:31 04/30/19 09:51 04/30/19 05:31 04/30/19 05:31 04/30/19 05:31 Temperature -Last 24 Hours Temperature 98.7 F Temperature 98.9 F Temperature 100.3 F Temperature 99.5 F - Labs CBC & Chem 7: 04/30/19 10:57 04/30/19 09:00
[2019-04-30 11:28] LABS: Hematocrit 26.3 % (30.3-42.9); Hemoglobin 9.2 gm/dl (10.1-14.3); Mean Corpuscular HGB Conc 35 % (30-34); Mean Corpuscular Volume 96 fl (79-97); Red Blood Count 2.76 M/mm3 (3.65-5.03); Red Cell Distribution Width 12.4 % (13.2-15.2)
[2019-04-30] MEDS: ENOXAPARIN 40 MG/0.4 ML INJ SUB-Q SCH (11:37)
[2019-04-30 11:56] LABS: Platelet Count 90 K/mm3 (140-440)
[2019-04-30] MEDS: ONDANSETRON 4 MG/2 ML INJ IV PRN (12:00)
[2019-04-30] MEDS ORDERED: BENZOCAINE 20% TOP SPRAY 0.5 ML UNIT DOSE MM NR (12:00)
[2019-04-30] MEDS: VANCOMYCIN/NS 1 GM/250 ML 1 GM/250 ML BAG IV SCH (12:00)
[2019-04-30 12:25] VITALS: BP 131/47
[2019-04-30] MEDS ORDERED: SODIUM CHLORIDE 0.9% 500 ML 500 ML ONE (12:49)
[2019-04-30] MEDS ORDERED: BENZOCAINE 20% TOP SPRAY 0.5 ML UNIT DOSE MM ONE (12:49)
--- NOTE | 2019-04-30 12:50 | Progress Note ---
Assessment and Plan - Patient Problems (1) Mitral sub-valve apparatus calcification Current Visit: Yes Status: Acute Plan to address problem: No indication for urgent YOUSUF. Continue medical management as you are doing. If indicated, we will perform elective YOUSUF as outpatient for MV calcification. This has been discussed extensively with patient and hospitalist, Dr Aldridge. Subjective Date of service: 04/30/19 Principal diagnosis: breast ca - high wbc Interval history: Patient's trans-thoracic echocardiogram was reviewed. There is a calcification of the mitral valve chordae, unlikely to represent endocarditis. Patient is otherwise afebrile, and feels better, no clinical findings findings of sepsis or endocarditis. Objective Vital Signs Temp Pulse Pulse Resp BP Pulse Ox 04/30/19 11:45 99.1 F 67 20 131/47 96 04/30/19 09:51 62 04/30/19 05:31 98.7 F 59 L 18 130/49 92 04/29/19 23:35 98.9 F 66 20 139/67 98 04/29/19 17:34 100.3 F H 66 22 148/50 98 - Physical Examination General: No Apparent Distress HEENT: Positive: PERRL, EOMI Neck: Positive: neck supple Cardiac: Positive: Reg Rate and Rhythm Lungs: Positive: Normal Exam Neuro: Positive: Grossly Intact Abdomen: Positive: Soft Skin: Positive: Clear Extremities: Absent: edema - Labs and Meds Cardiac Enzymes 04/30/19 Range/Units 09:00 AST 13 (5-40) units/L CBC 04/30/19 Range/Units 10:57 WBC 0.3 L* (4.5-11.0) K/mm3 RBC 2.76 L (3.65-5.03) M/mm3 Hgb 9.2 L (10.1-14.3) gm/dl Hct 26.3 L (30.3-42.9) % Plt Count 90 L (140-440) K/mm3 Comprehensive Metabolic Panel 04/30/19 Range/Units 09:00 Sodium 136 L (137-145) mmol/L Potassium 4.7 (3.6-5.0) mmol/L Chloride 99.7 (98-107) mmol/L Carbon Dioxide 25 (22-30) mmol/L BUN 13 (7-17) mg/dL Creatinine 0.7 (0.7-1.2) mg/dL Glucose 95 (65-100) mg/dL Calcium 8.8 (8.4-10.2) mg/dL AST 13 (5-40) units/L ALT 10 (7-56) units/L Alkaline Phosphatase 92 (35-129) units/L Total Protein 7.1 (6.3-8.2) g/dL Albumin 3.5 L (3.9-5) g/dL
[2019-04-30 12:55] LABS: Basophils % (Manual) 0 % (0.0-1.8); Eosinophils % (Manual) 0 % (0.0-4.3); Total Cells Counted 100
[2019-04-30] MEDS ORDERED: SODIUM CHLORIDE 0.9% 500 ML 500 ML IV SCH (13:00)
[2019-04-30 13:01] LABS: RBC Morphology Normal
[2019-04-30 13:02] LABS: Platelet Estimate Consistent w Auto
[2019-04-30] MEDS ORDERED: MAGIC MOUTHWASH 30ML PO SCH (23:44)
== END 2019-04-30 15:40 | disposition home or self-care (01) | DRG 315 ==
LOC: ED 09:53 → 3A 14:37
PROVIDERS: ADMIT Internal Medicine; ATTEND Internal Medicine
DX: T80.218A Other infection due to central venous catheter, initial encounter (principal); L03.313 Cellulitis of chest wall; E87.2 Acidosis; R65.10 Systemic inflammatory response syndrome (SIRS) of non-infectious origin without acute organ dysfunction; C77.3 Secondary and unspecified malignant neoplasm of axilla and upper limb lymph nodes; C95.90 Leukemia, unspecified not having achieved remission; C50.912 Malignant neoplasm of unspecified site of left female breast; Y83.8 Other surgical procedures as the cause of abnormal reaction of the patient, or of later complication, without mention of misadventure at the time of the procedure; I34.8 Other nonrheumatic mitral valve disorders; R59.1 Generalized enlarged lymph nodes; K21.9 Gastro-esophageal reflux disease without esophagitis; M19.90 Unspecified osteoarthritis, unspecified site; F17.200 Nicotine dependence, unspecified, uncomplicated; G43.909 Migraine, unspecified, not intractable, without status migrainosus; G89.29 Other chronic pain; M54.9 Dorsalgia, unspecified; F41.9 Anxiety disorder, unspecified; Y92.89 Other specified places as the place of occurrence of the external cause; Z88.2 Allergy status to sulfonamides; Z91.013 Allergy to seafood; Z79.899 Other long term (current) drug therapy; Z82.49 Family history of ischemic heart disease and other diseases of the circulatory system
CPT/HCPCS: 36415; 71046; 71275; 80048; 80053; 80202; 80307; 81001; 83735; 84100; 84484; 85007; 85025; 85610; 85730; 87040; 93005; 93010; 93306; 94640; 96374; 96375; 99406; G0378; J1170; J1200; J1650; J2270; J2405; J2765; J3370; J7040; Q0169; Q9967

== ENCOUNTER 2019-05-25 09:02 | Emergency (ER) | payer MEDICAID ==
[2019-05-25 09:12] VITALS: BP 176/94
[2019-05-25] MEDS ORDERED: IBUPROFEN 800 MG TAB PO ONE (09:45)
[2019-05-25] MEDS ORDERED: CLINDAMYCIN 300 MG CAP PO ONE (09:45)
[2019-05-25] MEDS ORDERED: HYDROcodone/ACETAMINOPHEN 5-325 MG TAB PO ONE (09:45)
--- NOTE | 2019-05-25 10:09 | Emergency Department Report ---
ED ENT HPI - General Chief complaint: Dental/Oral Stated complaint: FACE SWELLING Time Seen by Provider: 05/25/19 09:43 Source: patient Mode of arrival: Ambulatory Limitations: No Limitations - History of Present Illness Initial comments: Patient is a 58-year-old female who is presenting with right-sided facial swelling with pain. Patient states the pain is been progressively worsening over the last week. Patient has a history of breast cancer on chemotherapy. Patient states she does have a tooth that has a large cavity in the area where the swelling is developed. Patient denies any difficulty swallowing and states she has no nausea vomiting fevers or chills at this time. Pain is a 8 out of 10 in severity. - Related Data Home Medications Medication Instructions Recorded Confirmed Last Taken Promethazine [Phenergan] 25 mg PO Q6HR PRN 04/05/19 04/26/19 Unknown Omeprazole 40 mg PO DAILY 04/26/19 04/26/19 Unknown Previous Rx's Medication Instructions Recorded Last Taken Type DOXYCYCLINE Hyclate [Vibramycin 100 mg PO Q12HR #14 capsule 04/30/19 Unknown Rx CAP] Nystas/Diphen/Xyl Visc/Mylanta 15 ml PO TID #1 bottle 04/30/19 Unknown Rx [Magic Mouthwash] Polyethylene Glycol 3350 [Miralax 17 gm PO BID PRN #60 powd.pack 04/30/19 Unknown Rx 3350] Sennosides/Docusate [Senokot S] 2 tab PO Q12H PRN #60 tablet 04/30/19 Unknown Rx Clindamycin [Clindamycin CAP] 300 mg PO Q8H #21 cap 05/25/19 Unknown Rx HYDROcodone/APAP 5-325 [[place] 1 each PO Q6HR PRN #14 tablet 05/25/19 Unknown Rx 5/325] Ibuprofen [Motrin 600 MG tab] 600 mg PO Q8H PRN #20 tablet 05/25/19 Unknown Rx Allergies Allergy/AdvReac Type Severity Reaction Status Date / Time kiwi Allergy Hives Verified 04/26/19 10:02 shellfish derived Allergy Hives Verified 04/26/19 10:02 shrimp Allergy Hives Verified 04/26/19 10:02 Sulfa (Sulfonamide Allergy Rash Verified 04/26/19 10:02 Antibiotics) ED Dental HPI - General Chief complaint: Dental/Oral Stated complaint: FACE SWELLING Time Seen by Provider: 05/25/19 09:43 Source: patient Mode of arrival: Ambulatory Limitations: No Limitations - Related Data Home Medications Medication Instructions Recorded Confirmed Last Taken Promethazine [Phenergan] 25 mg PO Q6HR PRN 04/05/19 04/26/19 Unknown Omeprazole 40 mg PO DAILY 04/26/19 04/26/19 Unknown Previous Rx's Medication Instructions Recorded Last Taken Type DOXYCYCLINE Hyclate [Vibramycin 100 mg PO Q12HR #14 capsule 04/30/19 Unknown Rx CAP] Nystas/Diphen/Xyl Visc/Mylanta 15 ml PO TID #1 bottle 04/30/19 Unknown Rx [Magic Mouthwash] Polyethylene Glycol 3350 [Miralax 17 gm PO BID PRN #60 powd.pack 04/30/19 Unknown Rx 3350] Sennosides/Docusate [Senokot S] 2 tab PO Q12H PRN #60 tablet 04/30/19 Unknown Rx Clindamycin [Clindamycin CAP] 300 mg PO Q8H #21 cap 05/25/19 Unknown Rx HYDROcodone/APAP 5-325 [[place] 1 each PO Q6HR PRN #14 tablet 05/25/19 Unknown Rx 5/325] Ibuprofen [Motrin 600 MG tab] 600 mg PO Q8H PRN #20 tablet 05/25/19 Unknown Rx Allergies Allergy/AdvReac Type Severity Reaction Status Date / Time kiwi Allergy Hives Verified 04/26/19 10:02 shellfish derived Allergy Hives Verified 04/26/19 10:02 shrimp Allergy Hives Verified 04/26/19 10:02 Sulfa (Sulfonamide Allergy Rash Verified 04/26/19 10:02 Antibiotics) ED Review of Systems ROS: Stated complaint: FACE SWELLING Other details as noted in HPI Comment: All other systems reviewed and negative ED Past Medical Hx - Past Medical History Previous Medical History?: Yes Hx Hypertension: Yes (STATES RESOLVED; NO MEDS. ECHO [id number]) Hx CVA: Yes Hx Diabetes: No Hx GERD: Yes Hx Arthritis: Yes Hx Headaches / Migraines: Yes Hx Psychiatric Treatment: Yes (anxiety) Hx Asthma: No Hx COPD: No Hx HIV: No Additional medical history: Breast CA 2019 - Surgical History Past Surgical History?: Yes Additional Surgical History: fusion Lumbar spine. tonsills - Social History Smoking Status: Current Every Day Smoker Substance Use Type: None - Medications Home Medications: Home Medications Medication Instructions Recorded Confirmed Last Taken Type Promethazine [Phenergan] 25 mg PO Q6HR PRN 04/05/19 04/26/19 Unknown History Omeprazole 40 mg PO DAILY 04/26/19 04/26/19 Unknown History DOXYCYCLINE Hyclate [Vibramycin 100 mg PO Q12HR #14 capsule 04/30/19 Unknown Rx CAP] Nystas/Diphen/Xyl Visc/Mylanta 15 ml PO TID #1 bottle 04/30/19 Unknown Rx [Magic Mouthwash] Polyethylene Glycol 3350 [Miralax 17 gm PO BID PRN #60 powd.pack 04/30/19 Unknown Rx 3350] Sennosides/Docusate [Senokot S] 2 tab PO Q12H PRN #60 tablet 04/30/19 Unknown Rx Clindamycin [Clindamycin CAP] 300 mg PO Q8H #21 cap 05/25/19 Unknown Rx HYDROcodone/APAP 5-325 [[place] 1 each PO Q6HR PRN #14 tablet 05/25/19 Unknown Rx 5/325] Ibuprofen [Motrin 600 MG tab] 600 mg PO Q8H PRN #20 tablet 05/25/19 Unknown Rx ED Physical Exam - General Limitations: No Limitations General appearance: alert, in no apparent distress - Head Head exam: Present: atraumatic, normocephalic - Expanded Head Exam Expanded 1 - Erythema and induration to the skin. - Eye Eye exam: Present: normal appearance - ENT ENT exam: Present: mucous membranes moist - Expanded ENT Exam Expanded Teeth exam: Present: dental caries, dental tenderness # (29) - Neck Neck exam: Present: normal inspection - Respiratory Respiratory exam: Present: normal lung sounds bilaterally. Absent: respiratory distress - Cardiovascular Cardiovascular Exam: Present: regular rate, normal rhythm. Absent: systolic murmur, diastolic murmur, rubs, gallop - GI/Abdominal GI/Abdominal exam: Present: soft, normal bowel sounds - Extremities Exam Extremities exam: Present: normal inspection - Back Exam Back exam: Present: normal inspection - Neurological Exam Neurological exam: Present: alert, oriented X3 - Psychiatric Psychiatric exam: Present: normal affect, normal mood - Skin Skin exam: Present: warm, dry, intact, normal color. Absent: rash ED Course Vital Signs 05/25/19 09:06 Pulse Rate 83 Respiratory 20 Rate Blood Pressure 176/94 O2 Sat by Pulse 99 Oximetry ED Medical Decision Making - Medical Decision Making Patient with dental abscess with facial cellulitis. Patient started on clindamycin. Discharge home follow up with her dentist. Critical care attestation.: If time is entered above; I have spent that time in minutes in the direct care of this critically ill patient, excluding procedure time. ED Disposition Clinical Impression: Dental abscess, Facial cellulitis Disposition: TO HOME OR SELFCARE Is pt being admited?: No Does the pt Need Aspirin: No Condition: Stable Instructions: Dental Abscess (ED) Additional Instructions: Please follow-up with your dentist or oral surgeon Time of Disposition: 10:09
== END 2019-05-25 10:34 | disposition home or self-care (01) ==
LOC: ED 09:02
DX: K04.7 Periapical abscess without sinus (principal); L03.211 Cellulitis of face; I10 Essential (primary) hypertension; K21.9 Gastro-esophageal reflux disease without esophagitis; M19.90 Unspecified osteoarthritis, unspecified site; G43.909 Migraine, unspecified, not intractable, without status migrainosus; F17.200 Nicotine dependence, unspecified, uncomplicated
CPT/HCPCS: 99282

== ENCOUNTER 2019-08-24 15:19 | Emergency (ER) | payer MEDICAID ==
--- NOTE | 2019-08-24 18:16 | Event Note ---
ED Screening Note Date of service: 08/24/19 Time: 18:14 ED Screening Note: 59 y/o female that is in chemo has fallen and now has left elbow pain. Pain with movement. This initial assessment/diagnostic orders/clinical plan/treatment(s) is/are subject to change based on patients health status, clinical progression and re- assessment by fellow clinical providers in the ED. Further treatment and workup at subsequent clinical providers discretion. Patient/guardian urged not to elope from the ED as their condition may be serious if not clinically assessed and managed. Initial orders include: x ray left x-ray.
--- NOTE | 2019-08-24 18:45 | XRay Report ---
LEFT ELBOW 3 VIEW(S) INDICATION / CLINICAL INFORMATION: fall on left elbow now has pain COMPARISON: None available. FINDINGS: BONES / JOINT(S): No acute fracture or subluxation. No significant arthritis. SOFT TISSUES: No significant abnormality. Signer Name: Oswald Goldberg MD Signed: 08/24/2019 6:40 PM Workstation Name: [id number]
[2019-08-24] MEDS ORDERED: oxyCODONE /ACETAMINOPHEN 5-325MG TAB PO ONE (19:12)
--- NOTE | 2019-08-24 19:12 | Emergency Department Report ---
Upper Extremity - HPI Chief Complaint: Extremity Injury, Upper Stated Complaint: LEFT ARM ISSUE Time Seen by Provider: 08/24/19 18:13 Upper Extremity: Left Shoulder, Left Arm Occurred When: 2 Days Mechanism: Fall Severity: severe Symptoms: Yes Pain with Movement, No Deformity, No Limited Range of Movement, No Numbness, No Weakness, No Swelling, No Bruising/Ecchymosis, No Laceration or Abrasion Other History: 59-year-old female since to the emergency room for left arm pain. Patient reports she fell on Tuesday on her left arm. Patient states that she is taken half a Percocet today. Patient reports that she is currently in chemotherapy for advanced stage breast cancer. Patient reports that she is followed by pain management next appointment is August 31, 2019. ED Review of Systems ROS: Stated complaint: LEFT ARM ISSUE Other details as noted in HPI Comment: All other systems reviewed and negative ED Past Medical Hx - Past Medical History Hx Hypertension: Yes (STATES RESOLVED; NO MEDS. ECHO [id number]) Hx CVA: Yes Hx Diabetes: No Hx GERD: Yes Hx Arthritis: Yes Hx Headaches / Migraines: Yes Hx Psychiatric Treatment: Yes (anxiety) Hx Asthma: No Hx COPD: No Hx HIV: No Additional medical history: Breast CA 2019 - Surgical History Additional Surgical History: fusion Lumbar spine. tonsills - Social History Smoking Status: Former Smoker Substance Use Type: None - Medications Home Medications: Home Medications Medication Instructions Recorded Confirmed Last Taken Type Promethazine [Phenergan] 25 mg PO Q6HR PRN 04/05/19 04/26/19 Unknown History Omeprazole 40 mg PO DAILY 04/26/19 04/26/19 Unknown History DOXYCYCLINE Hyclate [Vibramycin 100 mg PO Q12HR #14 capsule 04/30/19 Unknown Rx CAP] Nystas/Diphen/Xyl Visc/Mylanta 15 ml PO TID #1 bottle 04/30/19 Unknown Rx [Magic Mouthwash] Polyethylene Glycol 3350 [Miralax 17 gm PO BID PRN #60 powd.pack 04/30/19 Unknown Rx 3350] Sennosides/Docusate [Senokot S] 2 tab PO Q12H PRN #60 tablet 04/30/19 Unknown Rx Clindamycin [Clindamycin CAP] 300 mg PO Q8H #21 cap 05/25/19 Unknown Rx HYDROcodone/APAP 5-325 [[place] 1 each PO Q6HR PRN #14 tablet 05/25/19 Unknown Rx 5/325] Ibuprofen [Motrin 600 MG tab] 600 mg PO Q8H PRN #20 tablet 05/25/19 Unknown Rx Upper Extremity Exam - Exam General: Vital signs noted. Mild distress. Alert and acting appropriately. Head and Torso: No HEENT Abnormality, No Neck Tenderness, No Chest/Lungs Abnormality, No Abdominal Tenderness, No Back Tenderness Shoulder Exam: Yes Shoulder Tenderness, Yes Normal Range of Motion in Shoulder, Yes AC Joint Tenderness, No Clavicle Tenderness, No Shoulder Deformity Arm Exam: No Arm/Humerus Tenderness, No Arm Deformity Elbow: No Elbow Tenderness, No Normal Range of Motion in Elbow, No Elbow Deformity Forearm: No Forearm Tenderness, No Forearm Deformity, No Pain with Pronation, No Pain with Supination Wrist: Yes Normal ROM in Wrist, No Wrist Tenderness, No Wrist Deformity, No Snuffbox Tenderness, No Pain with Axial Thumb Compression CMS Exam: No Broken Skin, No Normal Distal Pulses, No Normal Capillary Refill, No Normal Distal Sensation ED Course Vital Signs 08/24/19 16:49 Temperature 98.4 F Pulse Rate 98 H Respiratory 20 Rate Blood Pressure 99/69 O2 Sat by Pulse 97 Oximetry ED Medical Decision Making - Radiology Data Radiology results: report reviewed Patient: SINDY MEYER MR#: [id number] : 1960 Acct:[id number] Age/Sex: 59 / F ADM Date: 08/24/19 Loc: ED Attending Dr: Ordering Physician: FREDIS AMBROSIO Date of Service: 08/24/19 Procedure(s): XR elbow 3+V LT Accession Number(s): [id number] cc: FREDIS AMBROSIO Fluoro Time In Minutes: LEFT ELBOW 3 VIEW(S) INDICATION / CLINICAL INFORMATION: fall on left elbow now has pain COMPARISON: None available. FINDINGS: BONES / JOINT(S): No acute fracture or subluxation. No significant arthritis. SOFT TISSUES: No significant abnormality. Signer Name: Oswald Goldberg MD Signed: 08/24/2019 6:40 PM Workstation Name: [id number] Transcribed By: DARIUS Dictated By: Oswald Goldberg MD Electronically Authenticated By: Oswald Goldberg MD Signed Date/Time: 08/24/191839 DD/ 38 TD/TT: - Medical Decision Making 59-year-old female since to the emergency room for left arm pain. Patient reports she fell on Tuesday on her left arm. Patient states that she is taken half a Percocet today. Patient reports that she is currently in chemotherapy for advanced stage breast cancer. Patient reports that she is fo llowed by pain management next appointment is August 31, 2019. xray of left elbow ordered. X ray shows no acute fractures. Review of [facility] narcotic monitoring shows a patient receives 90 pills on 08/03/2019 as well as fentanyl for 30 days. Patient was recently seen by Dr. Awad and received 12 [place]. This was done on 08/20/2019 Critical care attestation.: If time is entered above; I have spent that time in minutes in the direct care of this critically ill patient, excluding procedure time. ED Disposition Clinical Impression: Fall Qualifiers: Encounter type: initial encounter Qualified Code(s): W19.XXXA - Unspecified fall, initial encounter Left upper arm injury Qualifiers: Encounter type: initial encounter Qualified Code(s): S49.92XA - Unspecified injury of left shoulder and upper arm, initial encounter Shoulder pain, acute Qualifiers: Laterality: left Qualified Code(s): M25.512 - Pain in left shoulder Disposition: -01 TO HOME OR SELFCARE Is pt being admited?: No Does the pt Need Aspirin: No Condition: Stable Instructions: Fall Prevention (ED), Shoulder Sprain (ED) Additional Instructions: X ray is negative. Take Tylenol and your Chronic pain meds. Follow up with your pain management provider.
[2019-08-24 19:59] VITALS: BP 110/74
== END 2019-08-24 19:59 | disposition home or self-care (01) ==
LOC: ED 15:19
DX: S49.92XA Unspecified injury of left shoulder and upper arm, initial encounter (principal); M25.512 Pain in left shoulder; K21.9 Gastro-esophageal reflux disease without esophagitis; M19.90 Unspecified osteoarthritis, unspecified site; G43.919 Migraine, unspecified, intractable, without status migrainosus; F41.9 Anxiety disorder, unspecified; C50.919 Malignant neoplasm of unspecified site of unspecified female breast; Z98.890 Other specified postprocedural states; Z87.891 Personal history of nicotine dependence; Z79.899 Other long term (current) drug therapy; Z91.013 Allergy to seafood; Z88.2 Allergy status to sulfonamides; Z91.018 Allergy to other foods; Z86.73 Personal history of transient ischemic attack (TIA), and cerebral infarction without residual deficits; W19.XXXA Unspecified fall, initial encounter; Y93.89 Activity, other specified; Y92.89 Other specified places as the place of occurrence of the external cause; Y99.8 Other external cause status

== ENCOUNTER 2019-08-30 01:57 | Emergency (ER) | payer MEDICAID ==
[2019-08-30 02:09] VITALS: BP 171/109
[2019-08-30] MEDS ORDERED: MORPHINE 4 MG/1 ML INJ IV ONE (04:39)
[2019-08-30] MEDS ORDERED: ONDANSETRON 4 MG/2 ML INJ IV ONE (07:07)
[2019-08-30] MEDS ORDERED: HYDROmorphone 1 MG/1 ML INJ IV ONE (07:07)
--- NOTE | 2019-08-30 07:07 | Emergency Department Report ---
ED General Adult HPI - General Chief complaint: Pain General Stated complaint: BODY PAIN Time Seen by Provider: 08/30/19 06:13 Source: patient Mode of arrival: Ambulatory Limitations: No Limitations - History of Present Illness Initial comments: This is a 59 year old female with metastatic breast disease to axillary nodes. She has had 14 rounds of chemotherapy. She complains of lower extremity pain from the knee down which she calls a "neuropathy due to chemotherapy". She states that she has never been checked for DVT. She states that her legs and arms are swollen. She has experienced some dyspnea on exertion. She has not had any recent transfusion of blood she denies fever or chills. She is under the care of Dr. Montgomery, oncologist. She denies a history of renal failure or heart failure. She states that she ran out of her pain medication on Tuesday. -: days(s) (since ran out of pain medicine) Location: lower extremity Quality: aching Consistency: constant Improves with: none Worsens with: none Associated Symptoms: shortness of breath (dyspnea on exertion). denies: confusion, chest pain, cough, diaphoresis, fever/chills, headaches, loss of appetite, malaise, nausea/vomiting, rash, seizure, syncope, weakness Treatments Prior to Arrival: none - Related Data Home Medications Medication Instructions Recorded Confirmed Last Taken Promethazine [Phenergan] 25 mg PO Q6HR PRN 04/05/19 04/26/19 Unknown Omeprazole 40 mg PO DAILY 04/26/19 04/26/19 Unknown Previous Rx's Medication Instructions Recorded Last Taken Type DOXYCYCLINE Hyclate [Vibramycin 100 mg PO Q12HR #14 capsule 04/30/19 Unknown Rx CAP] Nystas/Diphen/Xyl Visc/Mylanta 15 ml PO TID #1 bottle 04/30/19 Unknown Rx [Magic Mouthwash] Polyethylene Glycol 3350 [Miralax 17 gm PO BID PRN #60 powd.pack 04/30/19 Unknown Rx 3350] Sennosides/Docusate [Senokot S] 2 tab PO Q12H PRN #60 tablet 04/30/19 Unknown Rx Clindamycin [Clindamycin CAP] 300 mg PO Q8H #21 cap 05/25/19 Unknown Rx HYDROcodone/APAP 5-325 [Petaluma 1 each PO Q6HR PRN #14 tablet 05/25/19 Unknown Rx 5/325] Ibuprofen [Motrin 600 MG tab] 600 mg PO Q8H PRN #20 tablet 05/25/19 Unknown Rx oxyCODONE /ACETAMINOPHEN [Percocet 1 tab PO Q6HR PRN #10 tablet 08/30/19 Unknown Rx 5/325] Allergies Allergy/AdvReac Type Severity Reaction Status Date / Time kiwi Allergy Hives Verified 08/24/19 15:38 shellfish derived Allergy Hives Verified 08/24/19 15:38 shrimp Allergy Hives Verified 08/24/19 15:38 Sulfa (Sulfonamide Allergy Rash Verified 08/24/19 15:38 Antibiotics) ED Review of Systems ROS: Stated complaint: BODY PAIN Other details as noted in HPI Constitutional: denies: chills, fever Eyes: denies: eye pain, eye discharge, vision change ENT: denies: ear pain, throat pain Respiratory: SOB with exertion. denies: cough, shortness of breath (not at rest), wheezing Cardiovascular: denies: chest pain, palpitations Endocrine: no symptoms reported Gastrointestinal: denies: abdominal pain, nausea, diarrhea Genitourinary: denies: urgency, dysuria, discharge Musculoskeletal: as per HPI, other (warm and leg swelling leg greater ). denies: back pain, joint swelling, arthralgia Skin: denies: rash, lesions Neurological: denies: headache, weakness, paresthesias Psychiatric: denies: anxiety, depression Hematological/Lymphatic: denies: easy bleeding, easy bruising ED Past Medical Hx - Past Medical History Hx Hypertension: Yes (STATES RESOLVED; NO MEDS. ECHO [id number]) Hx CVA: Yes (left sided weakness) Hx Diabetes: No Hx GERD: Yes Hx Arthritis: Yes Hx Headaches / Migraines: Yes Hx Psychiatric Treatment: Yes (anxiety) Hx Asthma: No Hx COPD: No Hx HIV: No Additional medical history: Breast CA 2019, DDD - Surgical History Past Surgical History?: Yes Additional Surgical History: fusion Lumbar spine. tonsills - Social History Smoking Status: Light Tobacco Smoker Substance Use Type: Alcohol - Medications Home Medications: Home Medications Medication Instructions Recorded Confirmed Last Taken Type Promethazine [Phenergan] 25 mg PO Q6HR PRN 04/05/19 04/26/19 Unknown History Omeprazole 40 mg PO DAILY 04/26/19 04/26/19 Unknown History DOXYCYCLINE Hyclate [Vibramycin 100 mg PO Q12HR #14 capsule 04/30/19 Unknown Rx CAP] Nystas/Diphen/Xyl Visc/Mylanta 15 ml PO TID #1 bottle 04/30/19 Unknown Rx [Magic Mouthwash] Polyethylene Glycol 3350 [Miralax 17 gm PO BID PRN #60 powd.pack 04/30/19 Unknown Rx 3350] Sennosides/Docusate [Senokot S] 2 tab PO Q12H PRN #60 tablet 04/30/19 Unknown Rx Clindamycin [Clindamycin CAP] 300 mg PO Q8H #21 cap 05/25/19 Unknown Rx HYDROcodone/APAP 5-325 [P[place]uma 1 each PO Q6HR PRN #14 tablet 05/25/19 Unknown Rx 5/325] Ibuprofen [Motrin 600 MG tab] 600 mg PO Q8H PRN #20 tablet 05/25/19 Unknown Rx oxyCODONE /ACETAMINOPHEN [Percocet 1 tab PO Q6HR PRN #10 tablet 08/30/19 Unknown Rx 5/325] ED Physical Exam - General Limitations: No Limitations General appearance: alert, in no apparent distress - Head Head exam: Present: atraumatic, normocephalic - Eye Eye exam: Present: normal appearance - ENT ENT exam: Present: mucous membranes moist - Neck Neck exam: Present: normal inspection - Respiratory Respiratory exam: Present: normal lung sounds bilaterally, other (chest port). Absent: respiratory distress - Cardiovascular Cardiovascular Exam: Present: regular rate, normal rhythm. Absent: systolic murmur, diastolic murmur, rubs, gallop - GI/Abdominal GI/Abdominal exam: Present: soft, normal bowel sounds. Absent: distended, tenderness, guarding, rigid - Extremities Exam Extremities exam: Present: other (arms with mild edema need to ankle 1-2+ edema) - Back Exam Back exam: Present: normal inspection - Neurological Exam Neurological exam: Present: alert, oriented X3, CN II-XII intact, other (no acute focal deficit) - Psychiatric Psychiatric exam: Present: normal affect, normal mood - Skin Skin exam: Present: warm, dry, intact, normal color. Absent: rash ED Course Vital Signs 08/30/19 08/30/19 02:07 07:33 Temperature 97.6 F Pulse Rate 87 Respiratory 20 20 Rate Blood Pressure 171/109 O2 Sat by Pulse 100 Oximetry ED Medical Decision Making - Lab Data Result diagrams: 08/30/19 06:28 08/30/19 06:28 Laboratory Results - last 24 hr 08/30/19 08/30/19 08/30/19 06:28 06:28 07:07 WBC 2.8 L RBC 3.04 L Hgb 11.0 Hct 32.1 MCV 106 H MCH 36 H MCHC 34 RDW 17.3 H Plt Count 253 Sodium 138 Potassium 4.6 Chloride 105.1 Carbon Dioxide 17 L Anion Gap 21 BUN 21 H Creatinine 0.7 Estimated GFR > 60 BUN/Creatinine Ratio 30 Glucose 108 H Calcium 8.8 Magnesium 1.80 Total Bilirubin 0.20 AST 18 ALT 14 Alkaline Phosphatase 63 NT-Pro-B Natriuret Pep 590.6 Total Protein 6.6 Albumin 3.7 L Albumin/Globulin Ratio 1.3 Laboratory Results - last 24 hr 08/30/19 08/30/19 08/30/19 06:28 06:28 07:07 WBC 2.8 L RBC 3.04 L Hgb 11.0 Hct 32.1 MCV 106 H MCH 36 H MCHC 34 RDW 17.3 H Plt Count 253 Add Manual Diff Complete Total Counted 100 Seg Neuts % (Manual) 74.0 H Band Neutrophils % 0 Lymphocytes % (Manual) 23.0 Reactive Lymphs % (Man) 0 Monocytes % (Manual) 2.0 Eosinophils % (Manual) 0 Basophils % (Manual) 0 Metamyelocytes % 1.0 Myelocytes % 0 Promyelocytes % 0 Blast Cells % 0 Nucleated RBC % Not Reportable Seg Neutrophils # Man 2.1 Band Neutrophils # 0.0 Lymphocytes # (Manual) 0.6 L Abs React Lymphs (Man) 0.0 Monocytes # (Manual) 0.1 Eosinophils # (Manual) 0.0 Basophils # (Manual) 0.0 Metamyelocytes # 0.0 Myelocytes # 0.0 Promyelocytes # 0.0 Blast Cells # 0.0 WBC Morphology Not Reportable Hypersegmented Neuts Not Reportable Hyposegmented Neuts Not Reportable Hypogranular Neuts Not Reportable Smudge Cells Not Reportable Toxic Granulation Not Reportable Toxic Vacuolation Not Reportable Dohle Bodies Not Reportable Pelger-Huet Anomaly Not Reportable Tulio Rods Not Reportable Platelet Estimate Consistent w auto Clumped Platelets Not Reportable Plt Clumps, EDTA Not Reportable Large Platelets Not Reportable Giant Platelets Not Reportable Platelet Satelliting Not Reportable Plt Morphology Comment Not Reportable RBC Morphology Not Reportable Dimorphic RBCs Not Reportable Polychromasia Not Reportable Hypochromasia Not Reportable Poikilocytosis Not Reportable Anisocytosis 1+ Microcytosis Not Reportable Macrocytosis Not Reportable Spherocytes Not Reportable Pappenheimer Bodies Not Reportable Sickle Cells Not Reportable Target Cells Not Reportable Tear Drop Cells Not Reportable Ovalocytes Not Reportable Helmet Cells Not Reportable [place] Bodies Not Reportable [place] Rings Not Reportable [place] Cells Not Reportable Bite Cells Not Reportable Crenated Cell Not Reportable Elliptocytes Not Reportable Acanthocytes (Spur) Not Reportable Rouleaux Not Reportable Hemoglobin C Crystals Not Reportable Schistocytes Not Reportable Malaria parasites Not Reportable Balwinder Bodies Not Reportable Hem Pathologist Commnt No PT INR APTT Sodium 138 Potassium 4.6 Chloride 105.1 Carbon Dioxide 17 L Anion Gap 21 BUN 21 H Creatinine 0.7 Estimated GFR > 60 BUN/Creatinine Ratio 30 Glucose 108 H Calcium 8.8 Magnesium 1.80 Total Bilirubin 0.20 Direct Bilirubin < 0.2 Indirect Bilirubin 0.0 AST 18 ALT 14 Alkaline Phosphatase 63 NT-Pro-B Natriuret Pep 590.6 Total Protein 6.6 Albumin 3.7 L Albumin/Globulin Ratio 1.3 08/30/19 09:23 WBC RBC Hgb Hct MCV MCH MCHC RDW Plt Count Add Manual Diff Total Counted Seg Neuts % (Manual) Band Neutrophils % Lymphocytes % (Manual) Reactive Lymphs % (Man) Monocytes % (Manual) Eosinophils % (Manual) Basophils % (Manual) Metamyelocytes % Myelocytes % Promyelocytes % Blast Cells % Nucleated RBC % Seg Neutrophils # Man Band Neutrophils # Lymphocytes # (Manual) Abs React Lymphs (Man) Monocytes # (Manual) Eosinophils # (Manual) Basophils # (Manual) Metamyelocytes # Myelocytes # Promyelocytes # Blast Cells # WBC Morphology Hypersegmented Neuts Hyposegmented Neuts Hypogranular Neuts Smudge Cells Toxic Granulation Toxic Vacuolation Dohle Bodies Pelger-Huet Anomaly Tulio Rods Platelet Estimate Clumped Platelets Plt Clumps, EDTA Large Platelets Giant Platelets Platelet Satelliting Plt Morphology Comment RBC Morphology Dimorphic RBCs Polychromasia Hypochromasia Poikilocytosis Anisocytosis Microcytosis Macrocytosis Spherocytes Pappenheimer Bodies Sickle Cells Target Cells Tear Drop Cells Ovalocytes Helmet Cells [place] Bodies [place] Rings Lesia Cells Bite Cells Crenated Cell Elliptocytes Acanthocytes (Spur) Rouleaux Hemoglobin C Crystals Schistocytes Malaria parasites Balwinder Bodies Hem Pathologist Commnt PT 12.0 L INR 0.88 APTT 23.5 L Sodium Potassium Chloride Carbon Dioxide Anion Gap BUN Creatinine Estimated GFR BUN/Creatinine Ratio Glucose Calcium Magnesium Total Bilirubin Direct Bilirubin Indirect Bilirubin AST ALT Alkaline Phosphatase NT-Pro-B Natriuret Pep Total Protein Albumin Albumin/Globulin Ratio - Radiology Data Radiology results: report reviewed (no acute process per radiologist) Chest x-ray and Doppler exam showed nothing acute/normal findings. Critical care attestation.: If time is entered above; I have spent that time in minutes in the direct care of this critically ill patient, excluding procedure time. ED Disposition Clinical Impression: Lower extremity pain, bilateral, Metastatic breast cancer Disposition: TO HOME OR SELFCARE Is pt being admited?: No Does the pt Need Aspirin: No Condition: Stable Additional Instructions: R pointer pain management physician. Return any acute change or problem. Prescriptions: oxyCODONE /ACETAMINOPHEN [Percocet 5/325] 1 tab PO Q6HR PRN #10 tablet PRN Reason: Pain Referrals: PRIMARY CARE, [Primary Care Provider] - 3-5 Days Time of Disposition: 10:56
[2019-08-30] MEDS ORDERED: diphenhydrAMINE 50 MG/ML VIAL IV ONE (07:08)
[2019-08-30 07:18] LABS: Hematocrit 32.1 % (30.3-42.9); Mean Corpuscular HGB Conc 34 % (30-34); Mean Corpuscular Volume 106 fl (79-97); Platelet Count 253 K/mm3 (140-440); Red Blood Count 3.04 M/mm3 (3.65-5.03); Red Cell Distribution Width 17.3 % (13.2-15.2)
[2019-08-30 07:38] LABS: Alanine Aminotransferase 14 units/L (7-56); Albumin 3.7 g/dL (3.9-5); BUN/Creatinine Ratio 30; Blood Urea Nitrogen 21 mg/dL (7-17); Calcium 8.8 mg/dL (8.4-10.2); Hemolysis Index 14
--- NOTE | 2019-08-30 07:49 | XRay Report ---
CHEST 1 VIEW INDICATION: edema. COMPARISON: 04/26/2019 FINDINGS: Support devices: Right IJ Mhozym-i-Deeb remains in good position. Heart: Within normal limits. Lungs/Pleura: No acute air space or interstitial disease. Additional findings: None. IMPRESSION: Unremarkable AP chest. No change since 04/26/2019. Signer Name: Hardik Mccormick Jr, MD Signed: 08/30/2019 7:45 AM Workstation Name: [id number]
[2019-08-30 08:45] LABS: Bilirubin,Direct < 0.2 mg/dL (0-0.2)
--- NOTE | 2019-08-30 08:58 | Vascular Lab Report ---
DUPLEX DOPPLER LOWER EXTREMITY VEINS, BILATERAL INDICATION: Bilateral lower extremity swelling and pain for months. TECHNIQUE: Duplex doppler imaging was performed through the veins of both lower extremities using ve nous compression and other maneuvers. COMPARISON: No relevant prior imaging study available. FINDINGS: Right Common femoral vein: Negative. Right Superficial femoral vein: Negative. Right Popliteal vein: Negative. Right Calf veins: Negative. Left Common femoral vein: Negative. Left Superficial femoral vein: Negative. Left Popliteal vein: Negative. Left Calf veins: Negative. Additional findings: None.. IMPRESSION: No sonographic evidence for DVT in either lower extremity. Signer Name: Hardik Mccormick Jr, MD Signed: 08/30/2019 8:53 AM Workstation Name: [id number]
[2019-08-30 10:09] LABS: INR 0.88 (0.87-1.13); Partial Thromboplastin Time 23.5 Sec. (24.2-36.6)
[2019-08-30 10:44] LABS: Anisocytosis 1+; Basophils % (Manual) 0 % (0.0-1.8); Eosinophils % (Manual) 0 % (0.0-4.3); Platelet Estimate Consistent w Auto; Total Cells Counted 100
[2019-08-30] MEDS ORDERED: oxyCODONE /ACETAMINOPHEN 5-325MG TAB ONE (11:27)
== END 2019-08-30 11:20 | disposition home or self-care (01) ==
LOC: ED 01:57
DX: M79.605 Pain in left leg (principal); M79.604 Pain in right leg; C50.919 Malignant neoplasm of unspecified site of unspecified female breast; I10 Essential (primary) hypertension; K21.9 Gastro-esophageal reflux disease without esophagitis; F41.9 Anxiety disorder, unspecified; F17.200 Nicotine dependence, unspecified, uncomplicated; Z86.73 Personal history of transient ischemic attack (TIA), and cerebral infarction without residual deficits; Z79.899 Other long term (current) drug therapy; Z88.8 Allergy status to other drugs, medicaments and biological substances; Z88.2 Allergy status to sulfonamides
CPT/HCPCS: 36415; 71045; 80048; 80076; 83735; 83880; 85007; 85025; 85610; 85730; 93970; 96374; 96375; 99284; J1170; J1200; J2270; J2405; J1642

== ENCOUNTER 2019-10-03 11:28 | Observation (INO) | payer MEDICAID ==
--- NOTE | 2019-10-01 09:30 | Anesthesia Consultation ---
Anesthesia Consult and Med Hx Date of service: 10/03/19 - Airway Anesthetic Teeth Evaluation: Good ROM Head & Neck: Adequate Mental/Hyoid Distance: Adequate Mallampati Class: Class III Intubation Access Assessment: Probably Good - Pre-Operative Health Status ASA Pre-Surgery Classification: ASA3 Proposed Anesthetic Plan: General Nerve Block: PEC - Pulmonary Hx Smoking: Yes (SINCE AGE 19; 1/2PACK/DAY) Hx Asthma: No (States she can climb two flights of stairs) COPD: No Hx Pneumonia: No - Cardiovascular System Hx Hypertension: Yes (STATES RESOLVED; NO MEDS. ECHO [id number]) - Central Nervous System CVA: Yes (L SIDE WEAKNESS, DECREASED VISION) Hx Back Pain: Yes (Back surgery) Hx Psychiatric Problems: Yes - Gastrointestinal Hx Gastroesophageal Reflux Disease: Yes (Hiatal Hernia) - Endocrine Hx End Stage Renal Disease: No - Hematic Hx Anemia: Yes (HGB.HCT- 10.5/31.5 (09/10/19)) - Other Systems Hx Alcohol Use: No Hx Substance Use: Yes (COCAINE( 3 YEARS AGO); MARIJUANA) Hx Cancer: Yes (Breast)
[~2019-10-03 11:28] MED LIST: WATER FOR IRRIG STERILE 1,500 ML BOTTLE IR ONE; ceFAZolin/Water 2 GM/20 ML 2 GM/20 ML SYRINGE IV NR
[2019-10-03] MEDS ORDERED: LACTATED RINGERS 1,000 ML ONE ×3 (12:13→21:05)
[2019-10-03] MEDS ORDERED: fentaNYL 100 MCG/2 ML INJ IV ONE (12:49)
[2019-10-03] MEDS ORDERED: ACETAMINOPHEN 500 MG TAB PO ONE (12:49)
[2019-10-03] MEDS ORDERED: MAGNESIUM OXIDE 400 MG TAB PO ONE (12:49)
[2019-10-03] MEDS ORDERED: ONDANSETRON 4 MG/2 ML INJ IV PRN ×2 (12:49→20:29)
--- NOTE | 2019-10-03 12:52 | Anesthesia Day of Surgery ---
Anesthesia Day of Surgery - Day of Surgery Patient Examined: Yes Patient H&P Reviewed: Yes Patient is NPO: Yes
[2019-10-03] MEDS ORDERED: BUPIVACAINE-EPINEPHRINE/PF 0.5%-1:200,000 (30 ML) VIAL INFILTRATI ONE (12:54)
[2019-10-03] MEDS ORDERED: BUPIVACAINE-EPINEPHRINE/PF 0.25%-1:200,000 (30 ML) VIAL INFILTRATI ONE (12:54)
[2019-10-03] MEDS ORDERED: LACTATED RINGERS 1,000 ML IV SCH ×2 (13:00→21:00)
[2019-10-03] MEDS ORDERED: GABAPENTIN 300 MG CAP PO NR ×2 (13:00→13:41)
[2019-10-03] MEDS ORDERED: MIDAZOLAM 2 MG/2 ML INJ IV NR (13:00)
[2019-10-03] MEDS ORDERED: MIDAZOLAM 2 MG/2 ML INJ IV PRN (13:15)
[2019-10-03] MEDS ORDERED: ONDANSETRON 4 MG/2 ML INJ ONE (13:18)
[2019-10-03] MEDS ORDERED: LIDOCAINE MPF (2%) 20 MG/1 ML VIAL 5 ML ONE (13:18)
[2019-10-03] MEDS ORDERED: ROCURONIUM 50 MG/5 ML INJ IV ONE (13:18)
[2019-10-03] MEDS ORDERED: dexAMETHasone 20 MG/5 ML VIAL ONE (13:18)
[2019-10-03] MEDS ORDERED: KETAMINE/STERILE WATER 50 MG/ML SYRINGE ONE (13:19)
[2019-10-03] MEDS ORDERED: fentaNYL 100 MCG/2 ML INJ ONE ×2 (13:19→19:50)
[2019-10-03] MEDS ORDERED: propofoL 200 MG/20 ML VIAL IV ONE (13:19)
[2019-10-03] MEDS ORDERED: SODIUM CHLORIDE P/F VIAL 10 ML 10 ML ONE (13:35)
[2019-10-03] MEDS ORDERED: METHYLENE BLUE 50 MG/10 ML AMP ONE (13:35)
[2019-10-03] MEDS ORDERED: diazePAM 10 MG/2 ML SYRINGE IV ONE (13:49)
[2019-10-03] MEDS ORDERED: HYDROmorphone 1 MG/1 ML INJ IV SCH (14:00)
[2019-10-03] MEDS ORDERED: METHYLENE BLUE 50 MG/10 ML AMP IRRIGATION ONE (14:27)
[2019-10-03] MEDS ORDERED: SODIUM CHLORIDE 0.9% P/F 10 ML VIAL INFILTRATI ONE (14:27)
[2019-10-03] MEDS ORDERED: PHENYLEPHRINE/NS 1,000 MCG/10 ML SYRINGE (OR USE) IV ONE (14:28)
[2019-10-03] MEDS ORDERED: WATER FOR IRRIG STERILE 1,500 ML BOTTLE IR ONE (15:45)
[2019-10-03] MEDS ORDERED: NITROGLYCERIN 2% OINT 1 GM TP ONE ×2 (19:54→19:55)
[2019-10-03] MEDS: HYDROmorphone 1 MG/1 ML INJ IV PRN ×4 (20:24→20:54)
[2019-10-03] MEDS ORDERED: ACETAMINOPHEN 325 MG TAB PO PRN (20:29)
[2019-10-03] MEDS ORDERED: HYDROmorphone 2 MG TAB PO PRN (20:29)
[2019-10-03] MEDS ORDERED: diphenhydrAMINE 25 MG CAP PO PRN (20:29)
[2019-10-03] MEDS ORDERED: METOCLOPRAMIDE 10 MG TAB PO PRN (20:29)
--- NOTE | 2019-10-03 20:45 | Operative Report ---
Operative Report Operative Report: Date of Service: October 03, 2019 Preoperative diagnosis: Left breast cancer of the upper outer quadrant Postoperative diagnosis: Same Procedure: Left total mastectomy with sentinel lymph node biopsy followed by ALND and right total mastectomy Surgeon: Elma Santiago M.D. Supervisor Quilting: Dr. Christopher Anesthesia: Gen. Findings: Left breast clip present within left total mastectomy. 1 axillary lymph node identified and positive for malignancy on frozen section of pathology and proceeded with left axillary lymph node dissection Complications: None Drains: Two 19 [place]an GERRI drains on left and one right 19 Singaporean GERRI Estimated blood loss: 150 cc Disposition: PACU in good condition Indications for operative procedure: This is a 59-year-old lady with stage III left breast cancer of the upper outer quadrant; IDCA grade 3 [id number] left breast fungating mass of NAC with skin now intact and good clinical response with smaller residual tumor. She completed neoadjuvant chemotherapy and recommendations were to proceed with a left total mastectomy with SLNB and probable ALND. She wished to proceed with a prophylactic right mastectomy. Did not recommend immediate plastic surgery. She wished to proceed with the above procedure. Procedure in detail: The patient was taken to the operating room and was placed supine. Gen. anesthesia was administered. The left nipple was injected with radioisotope and 1 cc of methylene blue. Bilateral chest and axillas were prepped and draped in the normal sterile operative fashion. Timeout was performed. Typical mastectomy incision markings were made with left mastectomy encompassing known cancer of prior and current involvement. Attention was taken toward the right breast first. First began raising of the superior flap to the level of the clavicle superiorly and posteriorly to the pectoralis muscle. Followed by raising of the medial flap to the level of the sternum and posteriorly to the pectoralis muscle. Followed by raising of the lateral flap to the level of the latissimus dorsi muscle and taken down posteriorly. Followed by raising of the inferior flap to the level of the inframammary fold taken posterior to the pectoralis muscle. The mastectomy/breast was removed from the pectoralis muscle without incident. The specimen was appropriately marked and sent to pathology. Hemostasis was obtained. The port was noted and unharmed. GERRI drain placed. The subcutaneous tissues were approximated and closed using interrupted 3-0 Vicryl followed by running 4-0 Monocryl and dermabond. Attention was taken towards the left breast. A gamma probe was inserted into the axilla to identify the sentinel lymph node location with minimal uptake noted. Skin markings were made to include the area of known cancer. A skin incision was made with a 10 blade knife and dissection taken down to the subcutaneous tissues. First began raising of the superior flap to the level of the clavicle superiorly and posteriorly to the pectoralis muscle. Followed by raising of the medial flap to the level of the sternum and posteriorly to the pectoralis muscle. Followed by raising of the lateral flap to the level of the latissimus dorsi muscle and taken down posteriorly. The gamma probe was inserted into the axilla, the axillary fascia was opened and 1 axillary lymph node was identified that was dissected free and sent to pathology. Patient with positive axillary lymph node prior to chemotherapy and bulky axillary lymphadenoathy noted. Axillary lymph node was sent to pathology with findings positive for malignancy noted on frozen section. Then proceeded with raising of the inferior flap to the level of the inframammary fold taken posterior to the pectoralis muscle. The mastectomy/breast was removed from the pectoralis muscle without incident. The specimen was appropriately marked and sent to radiology with findings of breast clip present and sent to pathology. Attention was then taken towards the left axilla. First began opening of the axillary fascia further. The lattismus dorsi muscle was identified and followed superiorly. Then proceeded with identification of the axillary vein followed by identification of the thoracodorsal bundle and long thoracic nerve. Axillary lymph nodes were then removed from the above boundaries with the aid of the bovie cautery in a sweeping-like motion and then sent to pathology. Axillary lymph nodes from level I and II were removed. Both nerves were identified and unharmed. Bulky axillary lymphadenopathy was noted. Hemostasis was noted. The chest wall was irrigated and suctioned. Hemostasis was obtained. The subcutaneous tissues were approximated and closed using interrupted 3-0 Vicryl followed by running 4-0 Monocryl and dermabond. Bilateral mastectomy skni flaps were noted to have slight decrease skin perfusion, mastectomy flaps with appropriate thickness-decrease perfusion most probable for vascular disease given significant tobacco product usage. Nitropaste was applied bilaterally and will monitory closely, as discussed with family, will proceed with hyperbaric oxygen treatment if needed. She was extubated and transported to PACU in good condition.
--- NOTE | 2019-10-03 21:06 | Post Anesthesia Evaluation ---
- Post Anesthesia Evaluation Patient Participated: Yes Airway Patent: Yes Stable Respiratory Function: Yes Nausea/Vomiting: No Temp > 96.8F: Yes Pain Manageable: Yes Adequeate Hydration: Yes Anesthesia Complications: No
[2019-10-03] MEDS ORDERED: DOCUSATE SODIUM 100 MG CAP PO SCH (22:00)
[2019-10-03] MEDS: MORPHINE 2 MG/1 ML INJ IV PRN (23:51)
[2019-10-04] MEDS: MORPHINE 2 MG/1 ML INJ IV PRN (03:39)
[2019-10-04] MEDS: oxyCODONE /ACETAMINOPHEN 5-325MG TAB PO PRN ×2 (07:10→13:15)
--- NOTE | 2019-10-04 08:05 | Progress Note ---
Assessment and Plan This is a 59 year old lady with Stage III left breast cancer POD #1 left MRM and right total mastectomy. 1. No acute events overnight. 2. Pain in good control. 3. Bilateral chest incisions with no hematoma; incisions c/d/i; left upper mid mastectomy flap with decrease perfusion and will reapply nitropaste this am. Patient with greater than a 40 year tobacco product usage and skin flap ischemia due to smoking. If area worsens as discussed today, she will need hyperbaric oxygen treatment. Will refer to wound care now for evaluation. 4. GERRI drain education. 5. D/C later today. Subjective Date of service: 10/04/19 Principal diagnosis: Left breast cancer Stage III Interval history: POD #1 left MRM and right total mastectomy Objective - Constitutional Vitals: Vital Signs - 12hr 10/03/19 10/03/19 10/03/19 20:13 20:20 20:25 Temperature 97.4 F L Pulse Rate 90 90 87 Respiratory 18 18 16 Rate Blood Pressure 135/72 138/81 126/77 Blood Pressure [Left] O2 Sat by Pulse 100 100 100 Oximetry 10/03/19 10/03/19 10/03/19 20:30 20:45 21:00 Temperature 98.9 F Pulse Rate 81 78 77 Respiratory 16 16 16 Rate Blood Pressure 110/64 109/63 105/62 Blood Pressure [Left] O2 Sat by Pulse 100 100 100 Oximetry 10/03/19 10/04/19 10/04/19 23:41 00:31 04:28 Temperature 98.6 F 98.0 F Pulse Rate 70 61 Respiratory 20 20 Rate Blood Pressure 89/59 101/54 Blood Pressure 106/56 [Left] O2 Sat by Pulse 98 100 Oximetry General appearance: Present: no acute distress - EENT Eyes: PERRL, EOM intact ENT: hearing intact, clear oral mucosa, dentition normal Ears: bilateral: normal - Neck Neck: supple, normal ROM - Respiratory Respiratory effort: normal - Breasts Breasts: other (marianela chest incisions c/d/i; decrease perfusion of upper mid flap of 2-3 cm and will reapply nitropaste this am; no hematoma and JPs to bulb suction) - Cardiovascular Rhythm: regular Extremities: no ischemia, pulses intact, pulses symmetrical, No edema, normal temperature, normal color, Full ROM - Gastrointestinal General gastrointestinal: Present: soft, non-tender, non-distended - Genitourinary Female genitourinary: deferred - Integumentary Integumentary: clear, warm, dry - Musculoskeletal Musculoskeletal: strength equal bilaterally - Neurologic Neurologic: CNII-XII intact - Psychiatric Psychiatric: appropriate mood/affect, intact judgment & insight, memory intact, cooperative Medications & Allergies - Medications Allergies/Adverse Reactions: Allergies kiwi Allergy (Verified 09/25/19 14:44) Hives shellfish derived Allergy (Verified 09/25/19 14:44) Hives shrimp Allergy (Verified 09/25/19 14:44) Hives Sulfa (Sulfonamide Antibiotics) Allergy (Verified 09/25/19 14:44) Rash Home Medications: Home Medications Medication Instructions Recorded Confirmed Last Taken Type Omeprazole 40 mg PO DAILY 04/26/19 10/03/19 10/03/19 07:00 History oxyCODONE /ACETAMINOPHEN [Percocet 1 tab PO Q6HR PRN #10 tablet 08/30/19 09/25/19 Unknown Rx 5/325] Gabapentin [Neurontin] 300 mg PO Q8HR 09/25/19 10/03/19 10/02/19 History HYDROcodone/APAP 5-325 [Hertel 1 each PO Q6HR PRN #12 tablet 10/04/19 Unknown Rx 5/325] Active Medications: Generic Name Dose Route Start Last Admin Trade Name Freq PRN Reason Stop Dose Admin Acetaminophen 650 mg 10/03/19 20:29 Tylenol PO Q6H PRN Pain MILD(1-3)/Fever >100.5/BARONE Diphenhydramine HCl 25 mg 10/03/19 20:29 Benadryl PO Q8H PRN Itching Docusate Sodium 100 mg 10/03/19 22:00 Colace PO BID [place] Hydromorphone HCl 2 mg 10/03/19 20:29 10/04/19 02:34 Dilaudid PO 2 mg Q6H PRN Administration Pain , Severe (7-10) Lactated Ringer's 1,000 mls @ 125 mls/hr 10/03/19 21:00 10/04/19 03:47 Lactated Ringers IV 125 mls/hr DIRECT [place] Administration Metoclopramide HCl 10 mg 10/03/19 20:29 Reglan PO Q6H PRN Nausea And Vomiting Midazolam HCl 2 mg 10/03/19 13:15 10/03/19 13:15 Versed IV 2 mg PREOP PRN Administration Anxiety Morphine Sulfate 2 mg 10/03/19 20:32 10/04/19 03:39 Morphine IV 2 mg Q4H PRN Administration Pain, Moderate (4-6) Nitroglycerin 0.5 inch 10/04/19 07:59 Nitro-Bid 2% TP 10/04/19 08:00 ONCE ONE Protocol Ondansetron HCl 4 mg 10/03/19 12:49 Zofran IV ONCE PRN Nausea And Vomiting Ondansetron HCl 4 mg 10/03/19 20:29 Zofran IV Q8H PRN N/V unrelieved by Chuck Oxycodone/Acetaminophen 1 tab 10/03/19 20:29 Percocet 5/325 PO Q6H PRN Pain, Moderate (4-6) Sodium Chloride 10 ml 10/03/19 20:29 Sodium Chloride Flush Syringe 10 Ml IV PRN PRN LINE FLUSH
[2019-10-04] MEDS: NITROGLYCERIN 2% OINT 1 GM TP SCH ×2 (09:45→11:00)
--- NOTE | 2019-10-04 10:42 | Consultation ---
History of Present Illness Consult date: 10/04/19 Reason for consult: wound care Requesting physician: ERMA SANTIAGO Chief complaint: ischemic post-op wound - History of present illness History of present illness: 59yo F s/p Left total mastectomy with sentinel lymph node biopsy followed by ALND and right total mastectomy (10/02) who we are asked to see for possible wound care and hyperbaric therapy. Dr. Santiago reported that there was some tension on the wound closure. There were no complications during surgery. Patient is scheduled to go home today. At this time, there are no reports of any open wounds or drainage from the wounds. Patient is an active smoker and still smokes 3 cigarettes a day. She has been smoking for 40 years. Only documented vascular disease is a stroke in 2012. No active lung disease. Patient is not claustrophobic. Past History Past Medical History: cancer (breast), stroke (with residual weakness on left and memory problems), other (periodic hypoglycemia) Past Surgical History: tonsillectomy, Other (bilateral mastectomy with left ALND; spine fusion of L5-S1; port placement on right) Social history: smoking (40 year history. currently smokes 3 cigs/day). denies: alcohol abuse, prescription drug abuse, IV drug use Family history: no significant family history Medications and Allergies Allergies Allergy/AdvReac Type Severity Reaction Status Date / Time kiwi Allergy Hives Verified 09/25/19 14:44 shellfish derived Allergy Hives Verified 09/25/19 14:44 shrimp Allergy Hives Verified 09/25/19 14:44 Sulfa (Sulfonamide Allergy Rash Verified 09/25/19 14:44 Antibiotics) Home Medications Medication Instructions Recorded Confirmed Last Taken Type Omeprazole 40 mg PO DAILY 04/26/19 10/03/19 10/03/19 07:00 History oxyCODONE /ACETAMINOPHEN [Percocet 1 tab PO Q6HR PRN #10 tablet 08/30/19 09/25/19 Unknown Rx 5/325] Gabapentin [Neurontin] 300 mg PO Q8HR 09/25/19 10/03/19 10/02/19 History HYDROcodone/APAP 5-325 [Eads 1 each PO Q6HR PRN #12 tablet 10/04/19 Unknown Rx 5/325] Active Meds: Active Medications Acetaminophen (Tylenol) 650 mg PO Q6H PRN PRN Reason: Pain MILD(1-3)/Fever >100.5/BARONE Diphenhydramine HCl (Benadryl) 25 mg PO Q8H PRN PRN Reason: Itching Docusate Sodium (Colace) 100 mg PO BID [place] Hydromorphone HCl (Dilaudid) 2 mg PO Q6H PRN PRN Reason: Pain , Severe (7-10) Last Admin: 10/04/19 02:34 Dose: 2 mg Documented by: Lactated Ringer's (Lactated Ringers) 1,000 mls @ 125 mls/hr IV DIRECT [place] Last Admin: 10/04/19 03:47 Dose: 125 mls/hr Documented by: Metoclopramide HCl (Reglan) 10 mg PO Q6H PRN PRN Reason: Nausea And Vomiting Midazolam HCl (Versed) 2 mg IV PREOP PRN PRN Reason: Anxiety Last Admin: 10/03/19 13:15 Dose: 2 mg Documented by: Morphine Sulfate (Morphine) 2 mg IV Q4H PRN PRN Reason: Pain, Moderate (4-6) Last Admin: 10/04/19 03:39 Dose: 2 mg Documented by: Nitroglycerin (Nitro-Bid 2%) 0.5 inch TP ONCE [place]; Protocol Stop: 10/04/19 11:30 Ondansetron HCl (Zofran) 4 mg IV Q8H PRN PRN Reason: N/V unrelieved by Reglan Oxycodone/Acetaminophen (Percocet 5/325) 1 tab PO Q6H PRN PRN Reason: Pain, Moderate (4-6) Sodium Chloride (Sodium Chloride Flush Syringe 10 Ml) 10 ml IV PRN PRN PRN Reason: LINE FLUSH Review of Systems - Constitutional weakness, no fever, no chills, no chronic pain - Cardiovascular dyspnea on exertion, no chest pain - Respiratory cough (only since surgery), no sleep apnea, no respiratory infections, no home oxygen - Gastrointestinal no abdominal pain, no nausea, no vomiting - Integumentary darkening of skin (at surgical site), no rash - Endocrine low blood sugars Exam Vital Signs Temp Pulse Resp BP Pulse Ox 97.1 F L 72 26 H 106/71 97 10/01/19 09:36 10/01/19 09:36 10/01/19 09:36 10/01/19 09:36 10/01/19 09:36 - General physical appearance Positive: well developed, well nourished, no distress, no pain, other (pleasant. visually impaired. ) - Respiratory Positive: normal expansion, normal respiratory effort, clear to auscultation - Cardiovascular Rhythm: regular - Breasts Breasts: skin changes (1.5x5cm area of purplish discoloration superior to left incision line. No active drainage. No open wounds. GERRI drains in place on left with minimal amount of old blood. right incision is C/D/I) - Abdomen Abdomen: Present: soft. Absent: tender - Neurologic Neurologic: alert and oriented to time, place and person - Psychiatric Psychiatric: appropriate mood/affect, intact judgment & insight, cooperative Results - Imaging Chest x-ray: report reviewed (From Aug 2019) Assessment and Plan - Patient Problems (1) Breast cancer Current Visit: No Status: Acute Qualifiers: Laterality: left Plan to address problem: Patient is stable. At this time, there is no immediate need for specialized wound care or hyperbaric therapy. We do need to monitor the wound should it show signs of breakdown. I have spoken with the wound care clinic and they will make an appointment for her next week Tuesday for follow-up. This was explained to the patient and she was appreciative. Okay for discharge from our standpoint. Please call with any questions. Time=30min
[2019-10-04 16:41] VITALS: BP 84/48
--- NOTE | 2019-10-08 10:03 | XRay Report ---
SPECIMEN RADIOGRAPH LEFT BREAST INDICATION: Lt Breast Cancer. COMPARISON: 03/06/2019 FINDINGS: Spiculated mass and 2 biopsy clips are identified within the specimen. IMPRESSION: 1. Excision of the known cancer.. Signer Name: Michael Mcclain MD Signed: 10/08/2019 9:58 AM Workstation Name: [id number]
== END 2019-10-04 18:00 | disposition home or self-care (01) ==
LOC: OR 11:28 → OB 20:29
PROVIDERS: ADMIT Surgery; ATTEND Surgery
DX: C50.919 Malignant neoplasm of unspecified site of unspecified female breast (principal); Z79.899 Other long term (current) drug therapy; Z91.013 Allergy to seafood; Z88.2 Allergy status to sulfonamides; Z86.73 Personal history of transient ischemic attack (TIA), and cerebral infarction without residual deficits
CPT/HCPCS: 19303; 38525; 38792; 64450; 76098; 78800; 88307; 88309; 88331; 88333; 88342; 96374; 96375; 96376; A9541; G0378; J0690; J1100; J1170; J2250; J2270; J2370; J2405; J2704; J3010; J3360; J7120; Q9968; 88368

== ENCOUNTER 2019-10-19 08:42 | Outpatient (CLI) | payer MEDICAID ==
[2019-10-19] MEDS ORDERED: LIDOCAINE (4%) 40 MG/ML TOPICAL SOLN 50 ML BOTTLE TP ONE (09:30)
== END 2019-10-19 08:43 | disposition home or self-care (01) ==
LOC: WOUND 08:42
PROVIDERS: ATTEND Surgery
DX: T81.89XD Other complications of procedures, not elsewhere classified, subsequent encounter (principal); K21.9 Gastro-esophageal reflux disease without esophagitis; F17.210 Nicotine dependence, cigarettes, uncomplicated; Z85.3 Personal history of malignant neoplasm of breast; Z86.73 Personal history of transient ischemic attack (TIA), and cerebral infarction without residual deficits; Y83.8 Other surgical procedures as the cause of abnormal reaction of the patient, or of later complication, without mention of misadventure at the time of the procedure
CPT/HCPCS: 11042; G0463; 99214

== ENCOUNTER 2019-10-26 08:02 | Outpatient (CLI) | payer MEDICAID ==
[2019-10-26] MEDS ORDERED: LIDOCAINE (4%) 40 MG/ML TOPICAL SOLN 50 ML BOTTLE TP ONE (09:00)
== END 2019-10-26 08:03 | disposition home or self-care (01) ==
LOC: WOUND 08:02
PROVIDERS: ATTEND Surgery
DX: T81.89XD Other complications of procedures, not elsewhere classified, subsequent encounter (principal); K21.9 Gastro-esophageal reflux disease without esophagitis; F17.210 Nicotine dependence, cigarettes, uncomplicated; Z85.3 Personal history of malignant neoplasm of breast; Z86.73 Personal history of transient ischemic attack (TIA), and cerebral infarction without residual deficits; Y83.8 Other surgical procedures as the cause of abnormal reaction of the patient, or of later complication, without mention of misadventure at the time of the procedure

== ENCOUNTER 2019-11-02 08:56 | Outpatient (CLI) | payer MEDICAID ==
[2019-11-02] MEDS ORDERED: LIDOCAINE (4%) 40 MG/ML TOPICAL SOLN 50 ML BOTTLE TP ONE (10:00)
== END 2019-11-02 08:57 | disposition home or self-care (01) ==
LOC: WOUND 08:56
PROVIDERS: ATTEND Surgery
DX: T81.89XD Other complications of procedures, not elsewhere classified, subsequent encounter (principal); K21.9 Gastro-esophageal reflux disease without esophagitis; F17.210 Nicotine dependence, cigarettes, uncomplicated; Z85.3 Personal history of malignant neoplasm of breast; Z86.73 Personal history of transient ischemic attack (TIA), and cerebral infarction without residual deficits; Y83.8 Other surgical procedures as the cause of abnormal reaction of the patient, or of later complication, without mention of misadventure at the time of the procedure

== ENCOUNTER 2019-11-12 08:56 | Outpatient (CLI) | payer MEDICAID ==
[2019-11-12] MEDS ORDERED: LIDOCAINE (4%) 40 MG/ML TOPICAL SOLN 50 ML BOTTLE TP ONE (10:00)
== END 2019-11-12 08:57 | disposition home or self-care (01) ==
LOC: WOUND 08:56
PROVIDERS: ATTEND Surgery
DX: T81.89XD Other complications of procedures, not elsewhere classified, subsequent encounter (principal); K21.9 Gastro-esophageal reflux disease without esophagitis; F17.210 Nicotine dependence, cigarettes, uncomplicated; Z85.3 Personal history of malignant neoplasm of breast; Z86.73 Personal history of transient ischemic attack (TIA), and cerebral infarction without residual deficits; Y83.8 Other surgical procedures as the cause of abnormal reaction of the patient, or of later complication, without mention of misadventure at the time of the procedure

== ENCOUNTER 2019-11-26 08:47 | Outpatient (CLI) | payer MEDICAID ==
[2019-11-26] MEDS ORDERED: LIDOCAINE (4%) 40 MG/ML TOPICAL SOLN 50 ML BOTTLE TP ONE (08:58)
== END 2019-11-26 08:48 | disposition home or self-care (01) ==
LOC: WOUND 08:47
PROVIDERS: ATTEND Surgery
DX: T81.89XD Other complications of procedures, not elsewhere classified, subsequent encounter (principal); K21.9 Gastro-esophageal reflux disease without esophagitis; F17.210 Nicotine dependence, cigarettes, uncomplicated; Z85.3 Personal history of malignant neoplasm of breast; Z86.73 Personal history of transient ischemic attack (TIA), and cerebral infarction without residual deficits; Y83.8 Other surgical procedures as the cause of abnormal reaction of the patient, or of later complication, without mention of misadventure at the time of the procedure
CPT/HCPCS: 99213; G0463

== ENCOUNTER 2021-06-16 12:20 | Emergency (ER) | payer MEDICAID ==
[2021-06-16 12:27] VITALS: BP 114/66
[2021-06-16] MEDS ORDERED: METOCLOPRAMIDE 10 MG TAB PO ONE (12:43)
[2021-06-16] MEDS ORDERED: ACETAMINOPHEN 325 MG TAB PO ONE (12:43)
--- NOTE | 2021-06-16 12:49 | Emergency Department Report ---
ED General Adult HPI - General Chief complaint: Pain General Stated complaint: I fell and hit my tailbone, and my lower back hurt Time Seen by Provider: 06/16/21 12:31 Source: patient, EMS (Verbal report received from emergency medical services. EMS documentation not available at time of chart dictation ), RN notes reviewed Mode of arrival: Stretcher Limitations: Other (Patient is blind.) - History of Present Illness Initial comments: During the history and physical examination, I am chaperoned by nurse Ángela Swain. The patient is a 60-year-old female. Past medical history is complex, including past stroke, legally blind, osteoarthritis, migraines, anxiety, and breast cancer, dependent on opiates. The patient tells me that she follows at [facility] pain specialist for her chronic lower back pain. She also tells me that she lives at home with her , has a walker at home, and is getting home physical therapy. The patient is brought to the hospital today by emergency medical services. The patient states that yesterday, she was walking with her walker, that she leaned forward, and then fell backwards, onto her tailbone, and left side. She did not hit her head or neck. She has chronic headache, which is not sudden or thunderclap in nature, or not maximal in intensity. She denies new onset neck pain. She denies upper thoracic pain which is new, chest pain, abdominal pain, extremity weakness and numbness. She feels a little bit anxious, and she denies bladder or bowel retention, incontinence or saddle anesthesia. -: Gradual, days(s) Location: back (Back, pelvis, and tailbone) Radiation: non-radiation Severity scale (0 -10): 8 Quality: aching Consistency: constant Improves with: rest Worsens with: movement - Related Data Home Medications Medication Instructions Recorded Confirmed Last Taken Anastrozole [Arimidex] 1 mg PO DAILY 05/02/21 05/02/21 Unknown Clopidogrel [Plavix] 75 mg PO QDAY 05/02/21 05/02/21 Unknown Lisinopril [Zestril] 5 mg PO DAILY 05/02/21 05/02/21 Unknown Pregabalin [Lyrica] 150 mg PO DAILY 05/02/21 05/02/21 Unknown Previous Rx's Medication Instructions Recorded Last Taken Type Divalprokirstie Padron [Som Padron] 125 mg PO BID #60 tablet 05/08/21 Unknown Rx Mirtazapine [Remeron 15mg TAB] 7.5 mg PO QHS #30 tablet 05/08/21 Unknown Rx Sertraline [Zoloft] 50 mg PO QDAY #30 tablet 05/08/21 Unknown Rx hydrOXYzine PAMOATE [Vistaril] 25 mg PO BID #60 capsule 05/08/21 Unknown Rx traMADoL [Ultram] 50 mg PO Q6HR PRN #14 tablet 05/08/21 Unknown Rx Allergies Allergy/AdvReac Type Severity Reaction Status Date / Time kiwi Allergy Hives Verified 09/25/19 14:44 shellfish derived Allergy Hives Verified 09/25/19 14:44 shrimp Allergy Hives Verified 09/25/19 14:44 Sulfa (Sulfonamide Allergy Rash Verified 09/25/19 14:44 Antibiotics) ED Review of Systems ROS: Stated complaint: LEG PAIN Other details as noted in HPI Constitutional: denies: fever Eyes: denies: eye discharge Respiratory: denies: cough Cardiovascular: denies: chest pain Gastrointestinal: denies: abdominal pain Genitourinary: denies: dysuria Musculoskeletal: back pain, arthralgia, myalgia Neurological: denies: weakness (Denies new weakness/numbness), numbness Psychiatric: anxiety ED Past Medical Hx - Past Medical History Hx Hypertension: Yes Hx CVA: Yes (left sided weakness) Hx Congestive Heart Failure: No Hx Diabetes: No Hx GERD: Yes Hx Arthritis: Yes Hx Headaches / Migraines: Yes Hx Psychiatric Treatment: Yes (anxiety) Hx Asthma: No Hx COPD: No Hx HIV: No Additional medical history: Breast CA 2019, DDD - Surgical History Additional Surgical History: fusion Lumbar spine. tonsills - Social History Smoking Status: Current Every Day Smoker - Medications Home Medications: Home Medications Medication Instructions Recorded Confirmed Last Taken Type Anastrozole [Arimidex] 1 mg PO DAILY 05/02/21 05/02/21 Unknown History Clopidogrel [Plavix] 75 mg PO QDAY 05/02/21 05/02/21 Unknown History Lisinopril [Zestril] 5 mg PO DAILY 05/02/21 05/02/21 Unknown History Pregabalin [Lyrica] 150 mg PO DAILY 05/02/21 05/02/[address] [Depakote Dr] 125 mg PO BID #60 tablet 05/08/21 Unknown Rx Mirtazapine [Remeron 15mg TAB] 7.5 mg PO QHS #30 tablet 05/08/21 Unknown Rx Sertraline [Zoloft] 50 mg PO QDAY #30 tablet 05/08/21 Unknown Rx hydrOXYzine PAMOATE [Vistaril] 25 mg PO BID #60 capsule 05/08/21 Unknown Rx traMADoL [Ultram] 50 mg PO Q6HR PRN #14 tablet 05/08/21 Unknown Rx ED Physical Exam - General Limitations: Physical Limitation, Other (The patient is blind) General appearance: alert, anxious - Head Head exam: Present: atraumatic, normocephalic - Eye Eye exam: Present: EOMI. Absent: normal appearance (Bilateral cornea are opacified), nystagmus - ENT ENT exam: Present: normal exam, normal orophraynx, mucous membranes moist, normal external ear exam - Neck Neck exam: Present: normal inspection, full ROM. Absent: tenderness, meningismus - Respiratory Respiratory exam: Present: normal lung sounds bilaterally. Absent: respiratory distress, wheezes, rales, rhonchi, stridor, decreased breath sounds - Cardiovascular Cardiovascular Exam: Present: regular rate, normal rhythm, normal heart sounds. Absent: bradycardia, tachycardia, irregular rhythm, systolic murmur, diastolic murmur, rubs, gallop - GI/Abdominal GI/Abdominal exam: Present: soft. Absent: distended, tenderness, guarding, rebound, rigid, pulsatile mass - Extremities Exam Extremities exam: Present: normal inspection, full ROM, pedal edema (1+ edema in the bilateral lower extremities), other (2+ pulses noted in the bilateral upper and lower extremities. There is no palpable cord. negative Homans sign. Muscular compartments are soft. The pelvis is stable.). Absent: calf tenderness - Back Exam Back exam: Present: normal inspection, paraspinal tenderness. Absent: tenderness, CVA tenderness (R), CVA tenderness (L) - Neurological Exam Neurological exam: Present: alert (Sensation is intact to light touch in the bilateral lower extremities. Downgoing plantar reflexes bilaterally.), oriented X3, other (No facial droop. Tongue midline. Extraocular movements intact bilaterally. Facial sensation intact to light touch in V1, V2, V3 distribution bilaterally. 5 and a 5 strength in 4 extremities. Sensation intact to light touch in 4 extremities.) - Psychiatric Psychiatric exam: Present: anxious - Skin Skin exam: Present: warm, dry, intact, normal color. Absent: rash ED Course Vital Signs 06/16/21 12:22 Temperature 97.4 F L Pulse Rate 60 Respiratory 17 Rate Blood Pressure 114/66 [Right] O2 Sat by Pulse 98 Oximetry - Reevaluation(s) Reevaluation #1: 06/16/21 14:32 The patient is resting comfortably on her stretcher and in no acute distress. I informed the patient of her x-ray findings and plan for discharge. The patient is asking for a prescription for breakthrough pain. I advised the patient that she may take Tylenol and/or ibuprofen as needed for physical pain. The patient stated that she is not able to get a follow-up appointment with her pain specialist for a week or so, and is requesting a narcotic for breakthrough pain. I subsequently advised the patient that given that she has an outpatient pain specialist, it is this provider's practice and habit to not dispense narcotic therapy or controlled substances to patients who have pain specialist. The patient then told me that her pain specialist has a clause in her pain contract that allows her to receive narcotic and/or controlled substances for her breakthrough pain. I then reiterated to the patient that it is my practice to not dispense controlled substances to patients who have pain specialist and/or chronic pain, x-rays negative for fracture and/or dislocation, it is my opinion that an emergent medical condition is not present at this time, and the patient can continue conservative therapy and outpatient follow-up for her chronic hyperalgesia ED Medical Decision Making - Lab Data Vital Signs 06/16/21 12:22 Temperature 97.4 F L Pulse Rate 60 Respiratory 17 Rate Blood Pressure 114/66 [Right] O2 Sat by Pulse 98 Oximetry - Radiology Data Radiology results: pending, report reviewed, image reviewed interpreted by me: X-ray of the pelvis, interpreted by myself, shows no fracture, or dislocation, unremarkable soft tissue anatomy. X-ray of the lumbar spine, interpreted by myself, shows no fracture or dislocation, osteoarthritis/arthritic changes noted [facility] [address] [place] [address] XRay Report Signed Patient: SINDY MEYER MR#: [id number] : 1960 Acct:[id number] Age/Sex: 60 / F ADM Date: 06/16/21 Loc: ED Attending Dr: Ordering Physician: DIANA PAYNE MD Date of Service: 06/16/21 Procedure(s): XR pelvis 1-2V Accession Number(s): [id number] cc: DIANA PAYNE MD Fluoro Time In Minutes: . XR pelvis 1-2V INDICATION: fall tailbone pain. COMPARISON: None available. FINDINGS: There is no appreciable acute fracture or subluxation. Postsurgical changes are seen in visualized lumbar spine. Signer Name: Camilo Clark MD Signed: 06/16/2021 2:05 PM Workstation Name: [id number] Transcribed By: KRISTA Dictated By: Camilo Clark MD Electronically Authenticated By: Camilo Clark MD Signed Date/Time: 06/16/211404 DD/ 03 [facility] [address] [place] [address] XRay Report Signed Patient: SINDY MEYER MR#: [id number] 99 : 1960 Acct:[id number] Age/Sex: 60 / F ADM Date: 06/16/21 Loc: ED Attending Dr: Ordering Physician: DIANA PAYNE MD Date of Service: 06/16/21 Procedure(s): XR spine lumbosacral 2-3V Accession Number(s): [id number] cc: DIANA PAYNE MD Fluoro Time In Minutes: XR spine lumbosacral 2-3V INDICATION: fall back pain djd. COMPARISON: None available. FINDINGS: No acute fracture or subluxation. Previous interbody fusion at L4-L5. Overall normal alignment. Signer Name: Camilo Clark MD Signed: 06/16/2021 2:17 PM Workstation Name: [id number] Transcribed By: KRISTA Dictated By: Camilo Clark MD Electronically Authenticated By: Camilo Clark MD Signed Date/Time: 06/16/21 141 DD/ 16 - Medical Decision Making Differential diagnosis, including but not limited to: Sprain, strain, fall, debility, deconditioning, encounter for medical screening examination Assessment and plan: 60-year-old female, who was afebrile, with reassuring vital signs, who is clinically sober and of sound mind, who walks at home with a walker, has home physical therapy and rehabilitation, lives at home with , presenting with coccydynia and paralumbar pain, in the context of low mechanism fall. During my examination, she is able to turn herself with ease in the stretcher, lift her pelvis off the stretcher for disrobement, and move 4 extremities without difficulty. The patient has a remarkably lucid conversation with myself, and she denies irritative and obstructive urinary symptoms, bladder/bowel retention incontinence, and is able to tell me the name of her pain specialists group with [facility] pain management. She did not hit her head or neck. This is most likely her chronic pain, debility, and deconditioning. However, she has home physical therapy/rehab, home walker, is able to move 4 extremities without difficulty. She has no midline spinal step-offs or tenderness. X-ray of the pelvis and lumbar spine unremarkable for acute findings. This patient does not appear to have an emergent medical condition present at this time. She has resources at home in place at this time. She may follow-up with her outpatient pain specialist and/or primary care doctor. Critical care attestation.: If time is entered above; I have spent that time in minutes in the direct care of this critically ill patient, excluding procedure time. ED Disposition Clinical Impression: Coccydynia, Lower back pain, Fall Disposition: 01 HOME / SELF CARE / HOMELESS Is pt being admited?: No Does the pt Need Aspirin: No Condition: Good Additional Instructions: Please continue current outpatient medications. Please continue current outpatient physical therapy. Please follow-up with your outpatient primary care doctor and/or pain specialist within the next week. Patient may also take [id number] ibuprofen and/or acetaminophen as needed for physical pain. Patient may also alternate ice packs and heat packs as needed for physical pain. Please return to the emergency room right away with new pain, worsened pain, migration of pain, projectile vomiting, change in mental status, confusion, extremity weakness/numbness, bladder and/or bowel retention incontinence or anesthesia over the genitals or rectum, or any new, worsened or different symptoms not present on the initial emergency room evaluation. X-rays of the pelvis and lumbar spine were taken today, which did not demonstrate any acute or emergent findings. Referrals: PRIMARY CARE, [Primary Care Provider] - 3-5 Days [facility] [Provider Group] - 3-5 Days
--- NOTE | 2021-06-16 14:09 | XRay Report ---
. XR pelvis 1-2V INDICATION: fall tailbone pain. COMPARISON: None available. FINDINGS: There is no appreciable acute fracture or subluxation. Postsurgical changes are seen in visualized selma mbar spine. Signer Name: Camilo Clark MD Signed: 06/16/2021 2:05 PM Workstation Name: [id number]
--- NOTE | 2021-06-16 14:21 | XRay Report ---
XR spine lumbosacral 2-3V INDICATION: fall back pain djd. COMPARISON: None available. FINDINGS: No acute fracture or subluxation. Previous interbody fusion at L4-L5. Overall normal alignment. Signer Name: Camilo Clark MD Signed: 06/16/2021 2:17 PM Workstation Name: [id number]
== END 2021-06-16 14:46 | disposition home or self-care (01) ==
LOC: ED 12:20
DX: M53.3 Sacrococcygeal disorders, not elsewhere classified (principal); M54.50 Low back pain, unspecified; M79.605 Pain in left leg; I10 Essential (primary) hypertension; K21.9 Gastro-esophageal reflux disease without esophagitis; F41.9 Anxiety disorder, unspecified; M19.90 Unspecified osteoarthritis, unspecified site; G89.29 Other chronic pain; F17.200 Nicotine dependence, unspecified, uncomplicated; Z91.013 Allergy to seafood; Z88.8 Allergy status to other drugs, medicaments and biological substances; Z91.018 Allergy to other foods; Z79.899 Other long term (current) drug therapy; W18.39XA Other fall on same level, initial encounter; Y93.89 Activity, other specified; Y92.89 Other specified places as the place of occurrence of the external cause; Y99.8 Other external cause status
CPT/HCPCS: 72100; 72170; 99283

== ENCOUNTER 2022-01-25 11:32 | Observation (INO) | payer MEDICAID ==
[2022-01-25] MEDS ORDERED: ASPIRIN 325 MG TAB PO ONE (11:50)
[2022-01-25] MEDS ORDERED: fentaNYL 100 MCG/2 ML INJ IV ONE ×2 (11:59→13:19)
[2022-01-25] MEDS ORDERED: NITROGLYCERIN 2% OINT 1 GM TP ONE (11:59)
[2022-01-25] MEDS ORDERED: ONDANSETRON 4 MG/2 ML INJ IV ONE (11:59)
--- NOTE | 2022-01-25 12:23 | Emergency Department Report ---
HPI - General Chief Complaint: Chest Pain Time Seen by Provider: 01/25/22 11:52 - HPI HPI: Room 20 Patient is a 61-year-old female present with chief complaint of chest pain. The patient states this morning while at rest she developed substernal chest tightness that has been constant in nature associated with shortness of breath, nausea/vomiting and diaphoresis. Patient states she had an episode of diarrhea this morning. Patient currently gives her pain a score of 8/10. Patient has a history of coronary artery disease and has had 3 cardiac stents placed approximately 1 year ago ED Past Medical Hx - Past Medical History Hx Hypertension: Yes Hx CVA: Yes (left sided weakness) Hx GERD: Yes Hx of Cancer: Yes (Breast CA s/p bilat mastectomy & chemo) Hx Arthritis: Yes Hx Headaches / Migraines: Yes Hx Psychiatric Treatment: Yes (anxiety) Additional medical history: Breast CA 2019, DDD - Surgical History Hx Breast Surgery: Yes (Bilateral mastectomy) Additional Surgical History: fusion Lumbar spine. tonsills - Family History Family history: no significant - Social History Smoking Status: Current Every Day Smoker (2/3 pack/day) Substance Use Type: None (Denies illicit drug use) - Medications Home Medications: Home Medications Medication Instructions Recorded Confirmed Last Taken Type Anastrozole [Arimidex] 1 mg PO DAILY 05/02/21 05/02/21 Unknown History Clopidogrel [Plavix] 75 mg PO QDAY 05/02/21 05/02/21 Unknown History Lisinopril [Zestril] 5 mg PO DAILY 05/02/21 05/02/21 Unknown History Pregabalin [Lyrica] 150 mg PO DAILY 05/02/21 05/02/21 Unknown History Divalproex [Som Padron] 125 mg PO BID #60 tablet 05/08/21 Unknown Rx Mirtazapine [Remeron 15mg TAB] 7.5 mg PO QHS #30 tablet 05/08/21 Unknown Rx Sertraline [Zoloft] 50 mg PO QDAY #30 tablet 05/08/21 Unknown Rx hydrOXYzine PAMOATE [Vistaril] 25 mg PO BID #60 capsule 05/08/21 Unknown Rx traMADoL [Ultram] 50 mg PO Q6HR PRN #14 tablet 05/08/21 Unknown Rx ED Review of Systems ROS: Stated complaint: KIMBERLY/CHEST PAIN/DIARRHEA Other details as noted in HPI Constitutional: diaphoresis Eyes: denies: eye pain ENT: denies: throat pain Respiratory: shortness of breath Cardiovascular: chest pain Endocrine: no symptoms reported Gastrointestinal: nausea, vomiting, diarrhea Genitourinary: denies: dysuria Musculoskeletal: denies: back pain Neurological: headache Physical Exam - Physical Exam Vital Signs: Vital Signs 01/25/22 11:35 Temperature 98.9 F Pulse Rate 83 Respiratory 20 Rate Blood Pressure 195/98 [Left] O2 Sat by Pulse 95 Oximetry Physical Exam: GENERAL: The patient is well-developed well-nourished female lying on stretcher appear to be in moderate discomfort. [] HEENT: Normocephalic. Atraumatic. Extraocular motions are intact. Patient has moist mucous membranes. NECK: Supple. Trachea midline CHEST/LUNGS: Clear to auscultation. There is no respiratory distress noted. HEART/CARDIOVASCULAR: Regular. There is no tachycardia. There is no gallop rub or murmur. ABDOMEN: Abdomen is soft, nontender. Patient has normal bowel sounds. There is no abdominal distention. SKIN: There is no rash. There is no edema. There is no diaphoresis. NEURO: The patient is awake, alert, and oriented. The patient is cooperative. The patient has no focal neurologic deficits. The patient has normal speech. GCS 15 MUSCULOSKELETAL: There is no evidence of acute injury. ED Course Vital Signs 01/25/22 11:35 Temperature 98.9 F Pulse Rate 83 Respiratory 20 Rate Blood Pressure 195/98 [Left] O2 Sat by Pulse 95 Oximetry - Consultations Consultation #1: 01/25/22 13:22 Cardiology paged 01/25/22 13:[address] Hendricks- Will consult ED Medical Decision Making - Lab Data Result diagrams: 01/25/22 12:19 01/25/22 12:19 Laboratory Tests 01/25/22 01/25/22 01/25/22 12:19 12:19 12:19 WBC 9.7 RBC 3.76 Hgb 12.5 Hct 38.2 MCV 102 H MCH 33 H MCHC 33 RDW 14.6 Plt Count 179 Lymph % (Auto) 8.5 L [place] % (Auto) 3.7 Eos % (Auto) 0.8 Baso % (Auto) 0.2 Lymph # (Auto) 0.8 L [place] # (Auto) 0.4 Eos # (Auto) 0.1 Baso # (Auto) 0.0 Seg Neutrophils % 86.8 H Seg Neutrophils # 8.4 H PT 13.7 INR 0.95 APTT 30.1 Sodium 138 Potassium 5.1 H Chloride 107.5 H Carbon Dioxide 20 L Anion Gap 16 BUN 20 H Creatinine 1.1 Estimated GFR 51 BUN/Creatinine Ratio 18 Glucose 162 H Calcium 9.0 Total Bilirubin 0.40 AST 21 ALT 17 Alkaline Phosphatase 135 H Total Creatine Kinase CK-MB (CK-2) CK-MB (CK-2) Rel Index Troponin T < 0.010 Total Protein 8.0 Albumin 3.8 L Albumin/Globulin Ratio 0.9 Lipase 01/25/22 12:19 WBC RBC Hgb Hct MCV MCH MCHC RDW Plt Count Lymph % (Auto) [place] % (Auto) Eos % (Auto) Baso % (Auto) Lymph # (Auto) [place] # (Auto) Eos # (Auto) Baso # (Auto) Seg Neutrophils % Seg Neutrophils # PT INR APTT Sodium Potassium Chloride Carbon Dioxide Anion Gap BUN Creatinine Estimated GFR BUN/Creatinine Ratio Glucose Calcium Total Bilirubin AST ALT Alkaline Phosphatase Total Creatine Kinase 45 CK-MB (CK-2) 1.2 CK-MB (CK-2) Rel Index 2.6 Troponin T Total Protein Albumin Albumin/Globulin Ratio Lipase 10 L - EKG Data -: EKG Interpreted by Me EKG shows normal: sinus rhythm Rate: bradycardia (56 bpm) - EKG Data When compared to previous EKG there are: no significant change Interpretation: unchanged when compared t (05/02/2021) - Radiology Data Radiology results: image reviewed (Chest x-ray) interpreted by me: Chest [id number], no pneumothorax [facility] [address] [place] [address] XRay Report Signed Patient: SINDY MEYER MR#: [id number] : 1960 Acct:[id number] Age/Sex: 61 / F ADM Date: 01/25/22 Loc: ED Attending Dr: Ordering Physician: ROSALBA GILES MD Date of Service: 01/25/22 Procedure(s): XR chest 1V ap Accession Number(s): [id number] cc: ROSALBA GILES MD Fluoro Time In Minutes: CHEST 1 VIEW 11:59 AM INDICATION: chest pain. COMPARISON: 05/05/2021 FINDINGS: Support devices: Port is unchanged. Heart: Stable. Lungs/Pleura: Mild diffuse interstitial opacities are noted greatest in the perihilar regions. No pleural abnormality. IMPRESSION: 1. Predominantly perihilar interstitial opacities are suggestive of pulmonary edema. Signer Name: Jesse Peters MD Signed: 01/25/2022 12:20 PM Workstation Name: [id number] Transcribed By: MADELYN Dictated By: Jesse Peters MD Electronically Authenticated By: Jesse Peters MD Signed Date/Time: 01/25/22 1220 DD/ 1218 TD/TT: Print Cancel - Differential Diagnosis ACS, pericarditis, GERD Critical care attestation.: If time is entered above; I have spent that time in minutes in the direct care of this critically ill patient, excluding procedure time. ED Disposition Clinical Impression: Chest pain Disposition: ADMITTED INPATIENT Is pt being admited?: Yes Does the pt Need Aspirin: Yes Condition: Fair Instructions: Nonspecific Chest Pain, Adult Time of Disposition: 13:20 (Care transferred to hospitalist (Dr. Diaz)) Heart Score - HEART Score History: Highly suspicious EKG: Normal Age: 45-65 Risk factors: > 3 risk factors or hx of atherosclerotic disease Troponin: < normal limit HEART Score: 5 - EKG Read Time Time EKG Completed: 12:14 EKG Read Time: 12:15
[2022-01-25 12:46] LABS: Basophils % (Auto) 0.2 % (0.0-1.8); Eosinophils # (Auto) 0.1 K/mm3 (0.0-0.4); Eosinophils % (Auto) 0.8 % (0.0-4.3); Hematocrit 38.2 % (30.3-42.9); Hemoglobin 12.5 gm/dl (10.1-14.3); Lymphocytes # (Auto) 0.8 K/mm3 (1.2-5.4); Lymphocytes % (Auto) 8.5 % (13.4-35.0); Mean Corpuscular HGB Conc 33 % (30-34); Mean Corpuscular Volume 102 fl (79-97); Monocytes # (Auto) 0.4 K/mm3 (0.0-0.8); Monocytes % (Auto) 3.7 % (0.0-7.3); Platelet Count 179 K/mm3 (140-440); Red Blood Count 3.76 M/mm3 (3.65-5.03); Red Cell Distribution Width 14.6 % (13.2-15.2)
[2022-01-25 12:57] LABS: Creatine Kinase MB 1.2 ng/mL (0.0-4.0)
[2022-01-25 12:58] LABS: INR 0.95 (0.87-1.13); Partial Thromboplastin Time 30.1 Sec. (24.2-36.6)
[2022-01-25 13:01] LABS: Alanine Aminotransferase 17 units/L (7-56); Albumin 3.8 g/dL (3.9-5); BUN/Creatinine Ratio 18; Blood Urea Nitrogen 20 mg/dL (7-17); Hemolysis Index 2
--- NOTE | 2022-01-25 13:24 | History and Physical Report ---
History of Present Illness Chief complaint: My chest hurts History of present illness: 61 YO Female with HTN, CAD S/P Stent Placement, CVA on DAPT, GERD, OA, Migraine BARONE, OXANA, BrCA S/P Chemotherapy, Nicotine Dependence presents to ED for evaluation. Patient reports "my chest hurts". Patient states that she experien reid a sudden onset of pain in her chest this morning shortly after awakening from sleep. Patient states the pain is 8/10, constant, substernal, nonradiating, crushing in nature, worsened with exertion, relieved with rest, associated with nausea, associated with diaphoresis, associated with shortness of breath. EMS was notified and upon arrival the patient was found to be in distress and subsequently transported to [facility] for further care and evaluation of the aforementioned symptoms. The patient was seen and evaluated in the emergency department. All lab and imaging studies reviewed. Patient found to have angina as well as clinical symptoms consistent with diastolic CHF, and pulmonary hypertension. Patient admitted to telemetry and initiated on ACS protocol. Patient knowledges chest pain but denies fever, chills, palpitation, productive cough, skin rash, recent contact, known exposure to COVID-19. Prior admission on 05/02/2021 reviewed. All medication listed at time of admission has been reconciled. Advanced care planning conducted in ED. Cardiology team consulted in ED. Past History Past Medical History: CAD, cancer, GERD, hypertension, migraines, stroke, other (See HPI) Past Surgical History: mastectomy, tonsillectomy, Other (Spine surgery, cardiac stent placement) Social history: single, smoking Family history: diabetes, hypertension Medications and Allergies Allergies Allergy/AdvReac Type Severity Reaction Status Date / Time kiwi Allergy Hives Verified 01/25/22 11:43 shellfish derived Allergy Hives Verified 01/25/22 11:43 shrimp Allergy Hives Verified 01/25/22 11:43 Sulfa (Sulfonamide Allergy Rash Verified 01/25/22 11:43 Antibiotics) Home Medications Medication Instructions Recorded Confirmed Last Taken Type Anastrozole [Arimidex] 1 mg PO DAILY 05/02/21 05/02/21 Unknown History Clopidogrel [Plavix] 75 mg PO QDAY 05/02/21 05/02/21 Unknown History Lisinopril [Zestril] 5 mg PO DAILY 05/02/21 05/02/21 Unknown History Pregabalin [Lyrica] 150 mg PO DAILY 05/02/21 05/02/[address] [Depakote Dr] 125 mg PO BID #60 tablet 05/08/21 Unknown Rx Mirtazapine [Remeron 15mg TAB] 7.5 mg PO QHS #30 tablet 05/08/21 Unknown Rx Sertraline [Zoloft] 50 mg PO QDAY #30 tablet 05/08/21 Unknown Rx hydrOXYzine PAMOATE [Vistaril] 25 mg PO BID #60 capsule 05/08/21 Unknown Rx traMADoL [Ultram] 50 mg PO Q6HR PRN #14 tablet 05/08/21 Unknown Rx Review of Systems Constitutional: no weight loss, no weight gain, no fever, no chills Ears, nose, mouth and throat: no ear pain, no ear discharge, no tinnitis, no decreased hearing Breasts: no change in shape, no swelling Cardiovascular: chest pain, shortness of breath, decreased exercise tolerance Respiratory: no cough, no cough with sputum, no excessive sputum, no shortness of breath Gastrointestinal: nausea, no abdominal pain, no diarrhea, no constipation, no change in bowel habits Genitourinary Female: no pelvic pain, no flank pain, no dysuria, no urinary frequency, no urgency Rectal: no pain, no incontinence, no bleeding Musculoskeletal: no neck stiffness, no shooting arm pain, no arm numbness/tingling Integumentary: no rash, no pruritis, no jaundice Neurological: no head injury, no paralysis, no weakness, no numbness, no seizures Psychiatric: no anxiety, no memory loss, no sleep disturbances, no insomnia, no hypersomnia Endocrine: no cold intolerance, no polyphagia, no excessive thirst, no polydipsia Hematologic/Lymphatic: no easy bruising, no easy bleeding Allergic/Immunologic: no urticaria, no allergic rhinitis, no wheezing Exam - Constitutional Vitals: Temp Pulse Resp BP Pulse Ox 98.9 F 57 L 26 H 125/61 97 01/25/22 11:35 01/25/22 12:16 01/25/22 12:16 01/25/22 12:16 01/25/22 12:00 General appearance: Present: mild distress - EENT Eyes: Present: PERRL ENT: hearing intact, clear oral mucosa - Neck Neck: Present: supple, normal ROM - Respiratory Respiratory effort: normal Respiratory: bilateral: CTA - Cardiovascular Heart Sounds: Present: S1 & S2. Absent: rub, click - Extremities Extremities: pulses symmetrical, No edema Peripheral Pulses: within normal limits - Abdominal General gastrointestinal: Present: soft, non-tender, non-distended, normal bowel sounds Female genitourinary: Present: normal - Integumentary Integumentary: Present: clear, warm, dry - Musculoskeletal Musculoskeletal: gait normal, strength equal bilaterally - Psychiatric Psychiatric: appropriate mood/affect, intact judgment & insight - Neurologic Neurologic: CNII-XII intact, moves all extremities HEART Score - HEART Score EKG: Normal Age: 45-65 Risk factors: > 3 risk factors or hx of atherosclerotic disease Troponin: Troponin T < 0.010 ng/mL (0.00-0.029) 01/25/22 12:19 Troponin: < normal limit Results - Labs CBC & Chem 7: 01/25/22 12:19 01/25/22 12:19 Labs: Abnormal lab results 01/25/22 01/25/22 01/25/22 Range/Units 12:19 12:19 12:19 MCV 102 H (79-97) fl MCH 33 H (28-32) pg Lymph % (Auto) 8.5 L (13.4-35.0) % Lymph # (Auto) 0.8 L (1.2-5.4) K/mm3 Seg Neutrophils % 86.8 H (40.0-70.0) % Seg Neutrophils # 8.4 H (1.8-7.7) K/mm3 Potassium 5.1 H (3.6-5.0) mmol/L Chloride 107.5 H (98-107) mmol/L Carbon Dioxide 20 L (22-30) mmol/L BUN 20 H (7-17) mg/dL Glucose 162 H (65-100) mg/dL Alkaline Phosphatase 135 H (35-129) units/L Albumin 3.8 L (3.9-5) g/dL Lipase 10 L (13-60) units/L Assessment and Plan - Patient Problems (1) Angina at rest Status: Acute Plan to address problem: ACS protocol: Serial cardiac enzymes, EKG, telemetry monitoring, cardiology team consulted, further care and evaluation as per cardiology team, morphine, supplemental oxygen, nitro, aspirin. (2) Diastolic CHF Status: Acute Qualifiers: Heart failure chronicity: acute Qualified Code(s): I50.31 - Acute diastolic (congestive) heart failure Plan to address problem: Strict I's/O, monitor urine output every shift, daily weight, afterload reduction, blood pressure control, echocardiogram from August 2020 reviewed. (3) Pulmonary hypertension Status: Acute Plan to address problem: Supportive care, supplemental oxygen, outpatient pulmonary follow-up. (4) Breast cancer Status: Acute Plan to address problem: Outpatient oncology follow-up, continue medical management. (5) Nicotine dependence Status: Acute Qualifiers: Nicotine product type: cigarettes Substance use status: in withdrawal Qualified Code(s): F17.213 - Nicotine dependence, cigarettes, with withdrawal Plan to address problem: Smoking cessation counseling, supportive care, behavior change counseling, +15 minutes. (6) GERD (gastroesophageal reflux disease) Status: Acute Qualifiers: Esophagitis presence: without esophagitis Qualified Code(s): K21.9 - Gastro-esophageal reflux disease without esophagitis Plan to address problem: PPI therapy, bland diet, supportive care. (7) Migraine headache Status: Acute Plan to address problem: No acute exacerbation at this time. Continue medical management as clinically indicated. (8) Osteoarthritis Status: Acute Plan to address problem: NSAID therapy as clinically indicated, supportive care, pain control. (9) DVT prophylaxis Status: Acute Plan to address problem: SCD to bilateral lower extremities while in bed (10) Advance care planning Status: Acute Plan to address problem: Disease education done, care plan discussed, diagnoses discussed, prognosis discussed, patient is full code. Patient acknowledges understanding and agreement with care plan, +30 minutes. (11) Preventative health care Status: Acute Plan to address problem: Patient counseled regarding risk factor reduction, outpatient follow-up with primary care physician for all age and risk factor appropriate screening tests, +30 minutes.
[2022-01-25] MEDS ORDERED: ACETAMINOPHEN 325 MG TAB PO PRN (13:29)
[2022-01-25] MEDS ORDERED: MORPHINE 4 MG/1 ML INJ IV PRN (13:29)
[2022-01-25] MEDS ORDERED: ONDANSETRON 4 MG/2 ML INJ IV PRN (13:29)
[2022-01-25] MEDS ORDERED: ALBUTEROL 2.5 MG/3 ML NEBU IH PRN (13:29)
[2022-01-25] MEDS ORDERED: ASPIRIN 81 MG TAB CHEW PO STA (13:29)
[2022-01-25] MEDS: oxyCODONE /ACETAMINOPHEN 5-325MG TAB PO PRN (15:27)
--- NOTE | 2022-01-25 18:56 | Consultation ---
History of Present Illness Consult date: 01/25/22 Requesting physician: ROSALBA GILES Consult reason: chest pain History of present illness: Pt is a 61-year-old female with a hx of CAD s/p MN s/p PCI x 3 (08/2020), HFpEF, h/o ICMP (EF normalized in 2018), HTN, HLD, tobacco abuse, and recurrent CVAs (on DAPT) who presented with complaints of chest pain. Pt describes sudden onset substernal chest tightness which has been constant since this morning. Intermittent radiation down both arms. Worse with exertion. Associated with SOB, diaphoresis, and N/V. No palpitations, dizziness, or lightheadedness. Pt also reported an episode of diarrhea this AM according to ER documentation. Pt is followed by Dr. Stephens @ [place]. Past History Past Medical History: acute MN, CAD, cancer (breast), GERD, heart failure, hypertension, hyperlipidemia, migraines, stroke Past Surgical History: mastectomy, PTCA. denies: CABG Social history: single, smoking. denies: alcohol abuse Family history: diabetes, hypertension Medications and Allergies Allergies Allergy/AdvReac Type Severity Reaction Status Date / Time kiwi Allergy Hives Verified 01/25/22 11:43 shellfish derived Allergy Hives Verified 01/25/22 11:43 shrimp Allergy Hives Verified 01/25/22 11:43 Sulfa (Sulfonamide Allergy Rash Verified 01/25/22 11:43 Antibiotics) Home Medications Medication Instructions Recorded Confirmed Last Taken Type Anastrozole [Arimidex] 1 mg PO DAILY 05/02/21 05/02/21 Unknown History Clopidogrel [Plavix] 75 mg PO QDAY 05/02/21 05/02/21 Unknown History Lisinopril [Zestril] 5 mg PO DAILY 05/02/21 05/02/21 Unknown History Pregabalin [Lyrica] 150 mg PO DAILY 05/02/21 05/02/21 Unknown History Divalproex [Som Padron] 125 mg PO BID #60 tablet 05/08/21 Unknown Rx Mirtazapine [Remeron 15mg TAB] 7.5 mg PO QHS #30 tablet 05/08/21 Unknown Rx Sertraline [Zoloft] 50 mg PO QDAY #30 tablet 05/08/21 Unknown Rx hydrOXYzine PAMOATE [Vistaril] 25 mg PO BID #60 capsule 05/08/21 Unknown Rx traMADoL [Ultram] 50 mg PO Q6HR PRN #14 tablet 05/08/21 Unknown Rx Active Meds: Active Medications Acetaminophen (Acetaminophen 325 Mg Tab) 650 mg PO Q4H PRN PRN Reason: Pain MILD(1-3)/Fever >100.5/BARONE Albuterol (Albuterol 2.5 Mg/3 Ml Nebu) 2.5 mg IH Q4HRT PRN PRN Reason: Shortness Of Breath Morphine Sulfate (Morphine 4 Mg/1 Ml Inj) 2 mg IV Q8H PRN PRN Reason: Pain , Severe (7-10) Ondansetron HCl (Ondansetron 4 Mg/2 Ml Inj) 4 mg IV Q8H PRN PRN Reason: Nausea And Vomiting Oxycodone/Acetaminophen (Oxycodone /Acetaminophen 5-325mg Tab) 1 tab PO Q6H PRN PRN Reason: Pain, Moderate (4-6) Last Admin: 01/25/22 15:27 Dose: 1 tab Sodium Chloride (Sodium Chloride 0.9% 10 Ml Flush Syringe) 10 ml IV BID [place] Sodium Chloride (Sodium Chloride 0.9% 10 Ml Flush Syringe) 10 ml IV PRN PRN PRN Reason: LINE FLUSH Review of Systems Constitutional: no fever, no chills Ears, nose, mouth and throat: no nasal congestion, no sore throat Cardiovascular: chest pain, shortness of breath, no palpitations, no edema, no syncope, no lightheadedness Respiratory: cough, no shortness of breath Gastrointestinal: nausea, vomiting, diarrhea Genitourinary Female: no dysuria Musculoskeletal: no myalgias Integumentary: no rash, no wounds Neurological: no numbness, no tingling, no seizures, no syncope, no vertigo Endocrine: no polydipsia, no polyuria Hematologic/Lymphatic: no easy bruising, no easy bleeding Allergic/Immunologic: no anaphylaxis Physical Examination Vital Signs Temp Pulse Resp BP Pulse Ox 98.9 F 83 20 195/98 95 01/25/22 11:35 01/25/22 11:35 01/25/22 11:35 01/25/22 11:35 01/25/22 11:35 General appearance: no acute distress HEENT: Positive: EOMI, Normocephaly Neck: Negative: JVD/HJR Cardiac: Positive: Reg Rate and Rhythm, S1/S2. Negative: Audible Murmur Lungs: Positive: Rales Neuro: Positive: Grossly Intact Abdomen: Positive: Soft. Negative: Tender Skin: Negative: Rash Extremities: Present: edema Results 01/25/22 12:19 01/25/22 12:19 Cardiac Enzymes 01/25/22 01/25/22 Range/Units 12:19 12:19 AST 21 (5-40) units/L CK-MB (CK-2) 1.2 (0.0-4.0) ng/mL Coagulation 01/25/22 Range/Units 12:19 PT 13.7 (12.2-14.9) Sec. INR 0.95 (0.87-1.13) APTT 30.1 (24.2-36.6) Sec. CBC 01/25/22 Range/Units 12:19 WBC 9.7 (4.5-11.0) K/mm3 RBC 3.76 (3.65-5.03) M/mm3 Hgb 12.5 (10.1-14.3) gm/dl Hct 38.2 (30.3-42.9) % Plt Count 179 (140-440) K/mm3 Lymph # (Auto) 0.8 L (1.2-5.4) K/mm3 [place] # (Auto) 0.4 (0.0-0.8) K/mm3 Eos # (Auto) 0.1 (0.0-0.4) K/mm3 Baso # (Auto) 0.0 (0.0-0.1) K/mm3 Comprehensive Metabolic Panel 01/25/22 Range/Units 12:19 Sodium 138 (137-145) mmol/L Potassium 5.1 H (3.6-5.0) mmol/L Chloride 107.5 H (98-107) mmol/L Carbon Dioxide 20 L (22-30) mmol/L BUN 20 H (7-17) mg/dL Creatinine 1.1 (0.6-1.2) mg/dL Glucose 162 H (65-100) mg/dL Calcium 9.0 (8.4-10.2) mg/dL AST 21 (5-40) units/L ALT 17 (7-56) units/L Alkaline Phosphatase 135 H (35-129) units/L Total Protein 8.0 (6.3-8.2) g/dL Albumin 3.8 L (3.9-5) g/dL - Imaging and Cardiology Echo: pending, report reviewed Cardiac cath: report reviewed EKG: report reviewed, image reviewed - EKG Interpretation EKG: no acute changes EKG interpretations - Telemetry EKG Rhythm: Sinus Bradycardia - EKG Sinus rhythms and dysrhythmias: sinus rhythm Repolarization changes or abnormalities: nonspecific abnormality, ST segment, and/or T wave Assessment and Plan Assessment: Chest Pain CAD s/p MN, s/p PCI x 3 (08/2020) Acute on Chronic HF?pEF H/o ICMP (EF normalized on echo in 2018) HTN HLD Tobacco Abuse PAD Carotid Artery Stenosis s/p R CEA (09/2020) H/o Recurrent CVAs w Residual L-Sided Weakness (on DAPT) H/o Breast CA Anxiety Disorder Echo 12/2020 SUMMARY/CONCLUSIONS: 1. Left ventricular ejection fraction is 55-60%. 2. Trace mitral valve regurgitation. 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 Occlusion segment is short, not calcified or tortuous Conclusion: Successful RCA UTILITY WORKER DRIVER PCI (AWE) with overlapping Resolute [place] 2.5 x 38 mm YADIRA in mid distal RCA and Resolute [place] 3.0 x 34 mm YADIRA in mid to proximal RCA Successful LCx UTILITY WORKER DRIVER PCI (antegrade wiring) with Resolute Mike 3.0 x 38 mm YADIRA [facility] 09/12/2020 Impression: 1. High risk NSTEMI due to prox LAD lesion in the setting of concomitant UTILITY WORKER DRIVER of RCA and LCx - s/p IVUS guided PCI to pLAD with a 2.75 x 38 mm Mike YADIRA 2. Severely elevated LVEDP of 40 mmHg -- 80 mg IV Lasix given in the medical lab specialist Plan: Obtain echo. Recommend gentle IV diuresis. Plan for Lexiscan stress MPI in AM if respiratory status is stable. NPO after midnight. Continue ASA 81mg daily, Clopridogrel 75mg daily, and Atorvastatin 80mg nightly. Antihypertensives held due to borederline BP after receiving Fentanyl. Outpatient HF Regimen: Lasix 20mg daily, Toprol XL 50mg daily, Lisinopril 20mg daily. Correction of electrolyte abnormalities per Primary. Pt seen in conjunction with Dr. Hendricks, who agrees with the assessment and plan of care. - Patient Problems (1) Chest pain Current Visit: Yes Status: Acute (2) (HFpEF) heart failure with preserved ejection fraction Current Visit: Yes Status: Acute Qualifiers: Heart failure chronicity: acute on chronic Qualified Code(s): I50.33 - Acute on chronic diastolic (congestive) heart failure (3) CAD (coronary artery disease) Current Visit: Yes Status: Chronic Qualifiers: Coronary Disease-Associated Artery/Lesion type: [place] artery [place] vs. transplanted heart: [place] heart (4) Stented coronary artery Current Visit: Yes Status: Chronic (5) History of myocardial infarction Current Visit: Yes Status: Chronic (6) History of ischemic cardiomyopathy Current Visit: Yes Status: Chronic
[2022-01-25] MEDS ORDERED: FUROSEMIDE 40 MG/4 ML INJ IV ONE (23:03)
[2022-01-26] MEDS ORDERED: REGADENOSON 0.4 MG/5 ML INJ IV ONE (08:17)
[2022-01-26] MEDS ORDERED: NON-FORMULARY EACH (Pregabalin [Lyrica] 150 MG Capsule) PO SCH (10:00)
[2022-01-26] MEDS ORDERED: NON-FORMULARY EACH (Anastrozole [Arimidex] 1 MG Tablet) PO SCH (10:00)
[2022-01-26] MEDS ORDERED: ASPIRIN 81 MG TAB CHEW PO SCH (10:00)
[2022-01-26] MEDS ORDERED: LISINOPRIL 5 MG TAB PO SCH (10:00)
[2022-01-26] MEDS ORDERED: CLOPIDOGREL 75 MG TAB PO SCH (10:00)
[2022-01-26] MEDS ORDERED: SERTRALINE 50 MG TAB PO SCH (10:00)
[2022-01-26] MEDS ORDERED: DIVALPROEX DR 125 MG TAB PO SCH (10:00)
[2022-01-26] MEDS ORDERED: hydrOXYzine PAMOATE 25 MG CAP PO SCH (10:00)
[2022-01-26] MEDS ORDERED: PREGABALIN 75 MG CAP PO SCH (10:30)
--- NOTE | 2022-01-26 11:24 | Nuclear Medicine Report ---
APPROVED REPORT Exam: Nuclear Stress Test Indication: Chest pain [facility] Ht: 5 ft 4 in Wt: 151 lbs BSA: 1.74 m2 HR: 58 bpmBP: 168/76 mmHgBMI: 25.91 Rhythm: SINUS BRADYCARDIA, POSSIBLE ATRIAL ENLARGEMENT, ST&T ABNORMALITY, POSSIBLE ANTERIOR ISCHEMIA Medical History Medical History: CAD s/p WI, CAD s/p stent, HTN, Smoking,CVA Allergies: KIWI, SHELLFISH DERIVED, SULFA Previous Cardiac Procedures: PCI Stress Test Details Stress Test: Pharmacologic stress testing performed using 0.4 mg of regadenoson per 5 mL given IV over 10 seconds. Reason for pharmacologic stress test: physical limitation. HR Resting HR: 58 bpm Max HR Achieved: 74 bpm Max Heart Rate (APMHR): 160 bpm Target HR (85% APMHR): 136 bpm % of APMHR: 46 Recovery HR: 71 bpm BP Resting BP: 137/77 mmHg Max BP: 168/76 mmHg Recovery BP: 135/70 mmHg ECG Resting ECG: Sinus Bradycardia,non diffuse ST changes. Stress ECG: Sinus Rhythm ST Change: None,no significant change from base line. Arrhythmia: None Recovery ECG: S.R Recovery ST Change: None,no significant chage from abseline. Recovery Arrhythmia: None Clinical Reason for Termination: Completed protocol Stress Symptoms: Chest pain, Dyspnea NM EXAM: Myocardial Perfusion REST/STRESS Imaging Protocol: Rest Tc-99m/Stress Tc-99m 1 day Resting Data Rest SPECT myocardial perfusion imaging was performed in supine position 45 minutes following the intravenous injection of 10 mCi of Tc-99m Myoview. Time of rest injection: 644 Date: 01/26/2022 Pharmacologic Stress Pharmacologic stress test was performed by injecting Regadenoson 0.4 mg IV push followed by the intravenous injection of 28 mCi of Tc-99m Myoview. Time of stress injection: 09:38:16 Date: 01/26/2022 Gated Stress SPECT was performed 30 minutes after stress injection. The images were gated to evaluate regional wall motion and calculate left ventricular ejection fraction. Study Data TID = 0.98. Perfusion Wall Motion Normal sized LV with LVEF calculated to be in low range of normal,46%,post vasodilation. Nuclear Conclusion ECG Findings: negative for ischemia Clinical Findings: negative for ischemia Nuclear Findings: negative for ischemia Exercise Capacity: not assessed Left Ventricular Function: abnormal Risk Study: low No significant ischemia noted,LV EF lower limits of normal range.
[2022-01-26] MEDS: oxyCODONE /ACETAMINOPHEN 5-325MG TAB PO PRN (12:29)
[2022-01-26 12:32] VITALS: BP 159/74
--- NOTE | 2022-01-26 12:38 | Progress Note ---
Assessment and Plan Pt is a 61-year-old female with a hx of CAD s/p RI s/p PCI x 3 (08/2020), HFpEF, h/o ICMP (EF normalized in 2019), HTN, HLD, tobacco abuse, and recurrent CVAs (on DAPT) who presented with complaints of chest pain. Pt is followed by Dr. Stephens @ [place]. Assessment: Chest Pain CAD s/p RI, s/p PCI x 3 (08/2020) Acute on Chronic HF?pEF H/o ICMP (EF normalized on echo in 2019) HTN HLD Tobacco Abuse PAD Carotid Artery Stenosis s/p R CEA (09/2020) H/o Recurrent CVAs w Residual L-Sided Weakness (on DAPT) H/o Breast CA Anxiety Disorder Cardiographics: --Nuclear Lexiscan stress test 01/26/2022: ECG findings negative for ischemia. Clinical findings negative for ischemia. No significant ischemia noted, LVEF lower limits of normal range. Low risk study. Wall motion: Normal size LV with LVEF calculated to be in low range of normal, 46% post vasodilation. --Echo 12/2020 1. Left ventricular ejection fraction is 55-60%. 2. Trace mitral valve regurgitation. --Cardiac Cath -09/15/2020 Successful RCA POOL TECHNICIAN PCI (AWE) with overlapping Resolute [place] 2.5 x 38 mm YADIRA in mid distal RCA and Resolute Mike 3.0 x 34 mm YADIRA in mid to proximal RCA Successful LCx POOL TECHNICIAN PCI (antegrade wiring) with Resolute [place] 3.0 x 38 mm YADIRA --[facility] 09/12/2020 Impression: 1. High risk NSTEMI due to prox LAD lesion in the setting of concomitant POOL TECHNICIAN of RCA and LCx - s/p IVUS guided PCI to pLAD with a 2.75 x 38 mm [place] YADIRA 2. Severely elevated LVEDP of 40 mmHg -- 80 mg IV Lasix given in the skilled laborer Plan: Stress test results as above. Troponin negative x2 sets. Continue ASA 81mg daily, Clopridogrel 75mg daily, and Atorvastatin 80mg nightly. May resume outpatient antihypertensive therapies Outpatient HF Regimen: Lasix 20mg daily, Toprol XL 50mg daily, Lisinopril 20mg daily. Patient stable from cardiac standpoint for discharge home. Please have patient follow up with primary grease man in 7-10 days. Pt seen in conjunction with Dr. Hendricks, who agrees with the assessment and plan of care. Subjective Date of service: 01/26/22 Principal diagnosis: Chest Pain Interval history: Patient seen and examined today by Dr. Hendricks in the stress lab. She reported no cardiac complaints, just a slight headache. No chest pain. Objective Vital Signs Pulse Resp BP Pulse Ox 01/26/22 12:29 61 159/74 01/26/22 07:45 60 12 154/75 99 01/26/22 07:30 59 L 18 154/75 99 01/26/22 07:16 57 L 21 154/75 97 01/26/22 07:00 69 34 H 154/75 94 01/26/22 06:46 74 23 134/62 96 01/26/22 06:30 56 L 18 134/62 97 01/26/22 06:16 56 L 16 134/62 99 01/26/22 06:00 58 L 16 134/62 97 01/26/22 05:46 55 L 14 152/74 94 01/26/22 05:30 55 L 20 152/74 95 01/26/22 05:16 55 L 19 152/74 94 01/26/22 05:00 57 L 21 152/74 96 01/26/22 04:46 56 L 20 137/71 96 01/26/22 04:30 54 L 18 137/71 96 01/26/22 04:16 55 L 17 137/71 96 01/26/22 04:00 54 L 16 137/71 96 01/26/22 03:46 54 L 17 135/62 95 01/26/22 03:30 55 L 18 135/62 97 01/26/22 03:16 52 L 18 135/62 96 01/26/22 03:00 53 L 16 95 01/26/22 02:45 53 L 17 135/62 96 01/26/22 02:30 54 L 19 135/62 96 01/26/22 02:16 55 L 21 135/62 97 01/26/22 02:00 55 L 22 135/62 96 01/26/22 01:46 54 L 16 138/57 98 01/26/22 01:30 53 L 20 138/57 95 01/26/22 01:16 54 L 15 138/57 96 01/26/22 01:00 54 L 17 138/57 97 01/26/22 00:46 54 L 18 132/63 96 01/26/22 00:30 54 L 16 132/63 97 01/26/22 00:16 53 L 17 132/63 97 01/26/22 00:00 53 L 16 132/63 96 01/25/22 23:46 54 L 20 145/63 94 01/25/22 23:30 53 L 15 145/63 97 01/25/22 23:16 55 L 17 145/63 95 01/25/22 23:02 59 L 19 145/63 95 01/25/22 23:00 56 L 18 145/63 95 01/25/22 22:46 58 L 26 H 119/49 91 01/25/22 22:30 63 25 H 119/49 96 01/25/22 22:16 57 L 20 119/49 91 01/25/22 22:00 57 L 22 119/49 93 01/25/22 21:46 56 L 24 136/61 93 01/25/22 21:30 56 L 26 H 136/61 94 01/25/22 21:16 57 L 23 136/61 95 01/25/22 21:00 61 19 136/61 97 01/25/22 20:46 53 L 24 120/69 93 01/25/22 20:30 61 15 120/69 96 01/25/22 20:16 51 L 23 120/69 93 01/25/22 20:00 52 L 25 H 120/69 92 01/25/22 19:46 51 L 23 115/61 92 01/25/22 19:30 53 L 23 115/61 93 01/25/22 19:16 51 L 20 115/61 94 01/25/22 19:00 49 L 15 128/61 93 01/25/22 18:46 50 L 19 115/61 91 01/25/22 18:30 50 L 20 115/61 89 01/25/22 18:16 50 L 21 115/61 90 01/25/22 18:00 50 L 16 115/61 92 01/25/22 17:46 50 L 19 112/54 93 01/25/22 17:30 50 L 20 112/54 93 01/25/22 17:16 49 L 20 112/54 91 01/25/22 17:00 52 L 19 112/54 88 01/25/22 16:46 49 L 18 117/72 90 01/25/22 16:30 49 L 16 117/72 89 01/25/22 16:16 48 L 15 117/72 94 01/25/22 16:00 48 L 16 117/72 92 01/25/22 15:46 54 L 19 111/57 90 01/25/22 15:30 50 L 20 111/57 90 01/25/22 15:16 49 L 21 111/57 92 01/25/22 15:00 49 L 21 111/57 90 01/25/22 14:46 49 L 18 102/53 90 01/25/22 14:30 49 L 19 102/53 91 01/25/22 14:16 51 L 16 102/53 94 01/25/22 14:00 49 L 18 102/53 100 01/25/22 13:46 46 L 17 98/50 63 L 01/25/22 13:30 46 L 18 98/50 91 01/25/22 13:16 51 L 21 98/50 87 01/25/22 13:00 48 L 15 98/50 98 01/25/22 12:46 49 L 17 - Physical Examination General: Appears Well, No Apparent Distress HEENT: Positive: EOMI, Normocephaly Neck: Positive: trachea midline. Negative: JVD/HJR Cardiac: Positive: Reg Rate and Rhythm, S1/S2. Negative: Audible Murmur Lungs: Positive: Normal Exam Neuro: Positive: Grossly Intact Abdomen: Positive: Soft, Active Bowel Sounds. Negative: Tender Skin: Negative: Rash Musculoskeletal: Normal Range of Motion Extremities: Absent: edema - Labs and Meds Cardiac Enzymes 01/25/22 01/25/22 Range/Units 12:19 12:19 AST 21 (5-40) units/L CK-MB (CK-2) 1.2 (0.0-4.0) ng/mL Coagulation 01/25/22 Range/Units 12:19 PT 13.7 (12.2-14.9) Sec. INR 0.95 (0.87-1.13) APTT 30.1 (24.2-36.6) Sec. CBC 01/25/22 Range/Units 12:19 WBC 9.7 (4.5-11.0) K/mm3 RBC 3.76 (3.65-5.03) M/mm3 Hgb 12.5 (10.1-14.3) gm/dl Hct 38.2 (30.3-42.9) % Plt Count 179 (140-440) K/mm3 Lymph # (Auto) 0.8 L (1.2-5.4) K/mm3 Starr # (Auto) 0.4 (0.0-0.8) K/mm3 Eos # (Auto) 0.1 (0.0-0.4) K/mm3 Baso # (Auto) 0.0 (0.0-0.1) K/mm3 Comprehensive Metabolic Panel 01/25/22 Range/Units 12:19 Sodium 138 (137-145) mmol/L Potassium 5.1 H (3.6-5.0) mmol/L Chloride 107.5 H (98-107) mmol/L Carbon Dioxide 20 L (22-30) mmol/L BUN 20 H (7-17) mg/dL Creatinine 1.1 (0.6-1.2) mg/dL Glucose 162 H (65-100) mg/dL Calcium 9.0 (8.4-10.2) mg/dL AST 21 (5-40) units/L ALT 17 (7-56) units/L Alkaline Phosphatase 135 H (35-129) units/L Total Protein 8.0 (6.3-8.2) g/dL Albumin 3.8 L (3.9-5) g/dL - Imaging and Cardiology EKG: report reviewed, image reviewed Nuclear stress test: report reviewed Echo: pending, report reviewed Cardiac cath: report reviewed - EKG Sinus rhythms and dysrhythmias: sinus rhythm Repolarization changes or abnormalities: nonspecific abnormality, ST segment, and/or T wave - Allied health notes Allied health notes reviewed: nursing
--- NOTE | 2022-01-26 14:15 | Discharge Summary ---
Providers - Providers Date of Admission: 01/25/22 13:29 Date of discharge: 01/26/22 Attending physician: MK MARTINEZ 01/25/22 Consult to Cardiac Rehabilitation [CONS] Routine Reason For Exam: Phase 1 01/25/22 13:29 Consult to Physician [CONS] Urgent Comment: Consulting Provider: SKYLAR CAMPBELL Physician Instructions: Reason For Exam: Chest pain Primary care physician: ALEJANDRO LUO Hospitalization Condition: Fair Hospital course: Pt is a 61-year-old female with a hx of CAD s/p VT s/p PCI x 3 (08/2020), HFpEF, h/o ICMP (EF normalized in 2018), HTN, HLD, tobacco abuse, and recurrent CVAs (on DAPT) who presented with complaints of chest pain. Pt is followed by Dr. Stephens @ [place]. She was admitted for chest pain evaluation. Patient was evaluated in the ER, initial cardiac enzyme and EKG was unremarkable, chest x-ray showed no infiltrates. Patient was admitted and underwent myocardial stress test which was normal. Patient was then discharged home in stable condition with outpatient follow-up. Cardiographics: --Nuclear Lexiscan stress test 01/26/2022: ECG findings negative for ischemia. Clinical findings negative for ischemia. No significant ischemia noted, LVEF lower limits of normal range. Low risk study. Wall motion: Normal size LV with LVEF calculated to be in low range of normal, 46% post vasodilation. --Echo 12/2020 1. Left ventricular ejection fraction is 55-60%. 2. Trace mitral valve regurgitation. Disposition: 01 HOME / SELF CARE / HOMELESS Final Discharge Diagnosis (Prints w/discharge instructions): Chest Pain, likely from GERD. CAD s/p VT, s/p PCI x 3 (08/2020). Acute on Chronic HF?pEF. H/o ICMP (EF normalized on echo in 2018). HTN. HLD. Tobacco Abuse. PAD. Carotid Artery Stenosis s/p R CEA (09/2020). H/o Recurrent CVAs w Residual L-Sided Weakness (on DAPT). H/o Breast CA. Anxiety Disorder Time spent for discharge: 34 minutes Core Measure Documentation - Palliative Care Palliative Care/ Comfort Measures: Not Applicable - Core Measures Any of the following diagnoses?: history only Exam - Constitutional Vitals: Temp Pulse Resp BP Pulse Ox 98.9 F 61 12 149/74 99 01/25/22 11:35 01/26/22 12:29 01/26/22 07:45 01/26/22 12:29 01/26/22 07:45 General appearance: Present: no acute distress, well-nourished - EENT Eyes: Present: PERRL ENT: hearing intact, clear oral mucosa - Neck Neck: Present: supple, normal ROM - Respiratory Respiratory effort: normal Respiratory: bilateral: CTA - Cardiovascular Heart Sounds: Present: S1 & S2. Absent: rub, click - Extremities Extremities: pulses symmetrical, No edema Peripheral Pulses: within normal limits - Abdominal General gastrointestinal: Present: soft, non-tender, non-distended, normal bowel sounds - Integumentary Integumentary: Present: clear, warm, dry - Musculoskeletal Musculoskeletal: gait normal, strength equal bilaterally - Psychiatric Psychiatric: appropriate mood/affect, intact judgment & insight - Neurologic Neurologic: CNII-XII intact, moves all extremities Plan Activity: advance as tolerated Weight Bearing Status: Weight Bear as Tolerated Diet: low fat, low salt Additional Instructions: Continue ASA 81mg daily, Clopridogrel 75mg daily, and Atorvastatin 80mg nightly. May resume outpatient antihypertensive therapies and Outpatient HF Regimen: Lasix 20mg daily, Toprol XL 50mg daily, Lisinopril 20mg daily. Please follow up with primary chiropractic neurologist in 7-10 days. Follow up with: ALEJANDRO LUO MD [Primary Care Provider] - 7 Days Prescriptions: Aspirin EC [Halfprin EC] 81 mg PO QDAY #30 tablet. Pantoprazole [Protonix] 40 mg PO QDAY #30 tablet
[2022-01-26] MEDS ORDERED: MIRTAZAPINE 15 MG TAB PO SCH (22:00)
--- NOTE | 2022-01-27 17:32 | Electrocardiograph Report ---
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
--- NOTE | 2022-01-27 17:46 | Electrocardiograph Report ---
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
== END 2022-01-26 17:30 | disposition home or self-care (01) ==
LOC: ED 11:32 → 4A 13:29 → INTOOBSV 13:29 → 4A 01-26 06:44
PROVIDERS: ADMIT Internal Medicine; ATTEND Internal Medicine
DX: R07.89 Other chest pain (principal); I11.0 Hypertensive heart disease with heart failure; I50.33 Acute on chronic diastolic (congestive) heart failure; K21.9 Gastro-esophageal reflux disease without esophagitis; G43.909 Migraine, unspecified, not intractable, without status migrainosus; I25.119 Atherosclerotic heart disease of native coronary artery with unspecified angina pectoris; I25.2 Old myocardial infarction; I25.5 Ischemic cardiomyopathy; M19.90 Unspecified osteoarthritis, unspecified site; F41.9 Anxiety disorder, unspecified; F17.213 Nicotine dependence, cigarettes, with withdrawal; Z85.3 Personal history of malignant neoplasm of breast; Z86.73 Personal history of transient ischemic attack (TIA), and cerebral infarction without residual deficits; Z90.49 Acquired absence of other specified parts of digestive tract; Z79.899 Other long term (current) drug therapy; Z98.890 Other specified postprocedural states; Z95.1 Presence of aortocoronary bypass graft
CPT/HCPCS: 36415; 71045; 78452; 80053; 80164; 82550; 82553; 83690; 84484; 85025; 85610; 85730; 93005; 93017; 96374; 96375; 99285; A9502; C8929; G0378; J2270; J2405; J2785; J3010; 93306